=== PATIENT | female | born 1985 | race Caucasian/White ===

== ENCOUNTER 2019-12-17 09:54 | Outpatient (REF) | payer MEDICAID, SELFPAY | END 2019-12-17 09:55 | disposition home or self-care (01) | LOC: HO.LAB 09:54 | PROVIDERS: Visit Provider Internal Medicine | DX: Z20.828 Contact with and (suspected) exposure to other viral communicable diseases (principal) | CPT/HCPCS: C9803; U0003 ==

== ENCOUNTER → 2020-04-18 07:48 | Outpatient (BNVA) | payer MEDICAID, SELFPAY | PROVIDERS: PCP Internal Medicine; Visit Provider Internal Medicine Gastroenterology ==

== ENCOUNTER 2020-04-20 21:11 | Emergency (ER) | payer MEDICAID, SELFPAY ==
--- NOTE | ~2020-04-20 | US_ITS ---
EXAMINATION: US ABDOMEN LIMITED CLINICAL INFORMATION: Right upper quadrant/epigastric pain. COMPARISON: 06/20/2019 TECHNIQUE: Real-time imaging of the right upper quadrant abdominal viscera. FINDINGS: PANCREAS: The visualized proximal portion of the pancreas is unremarkable. The distal portion is obscured secondary to overlying bowel gas. LIVER: The liver is normal in size. The liver contour is normal. Parenchymal echogenicity is mildly increased, suggesting a degree of steatosis. There is a redemonstrated 1.8 cm hyperechoic lesion along the margin of the right hepatic lobe consistent with a hemangioma. There is no intrahepatic biliary duct dilatation seen. GALLBLADDER: Multiple gallstones are visualized. Mild gallbladder wall thickening to 0.4 cm. No pericholecystic fluid is seen. Right upper quadrant tenderness is reported. COMMON BILE DUCT: Normal in caliber measuring 0.2 cm in diameter. RIGHT KIDNEY: No hydronephrosis. No renal calculi or focal parenchymal lesions. The kidney measures 12.1 cm in maximum dimension. FREE FLUID: None. US/US abdomen limited IMPRESSION: 1. Cholelithiasis with mild gallbladder wall thickening, raising concern for mild changes of acute cholecystitis in the proper clinical setting. 2. Redemonstrated hepatic hemangioma.
[2020-04-20 21:13] VITALS: BP 115/67; PULSE 90; RESP 18; TEMP 36.9; O2SAT 100; BMI 30.7
--- NOTE | 2020-04-20 22:35 | ED.GENADULT ---
HPI - General Adult General Chief complaint: General Medical Stated complaint: Abdominal pain Time Seen by Provider: 04/20/20 21:51 Source: patient Mode of arrival: ambulatory History of Present Illness HPI narrative: This is a 35-year-old female with history of IBS, cholelithiasis who presents with worsening, crampy right upper quadrant/epigastric pain that radiates into the right mid back without associated chills but reports subjective fevers yesterday but denies nausea, vomiting, diarrhea, urinary pain/burning/frequency. She states that her last bowel movement was approximately 2-3 days ago. Related Data Previous Rx's Medication Instructions Recorded dicyclomine 10 mg capsule 10 mg PO TID #30 cap 04/07/20 ciprofloxacin HCl [Cipro] 250 mg PO Q12H 3 Days #6 tab 04/21/20 Allergies Allergy/AdvReac Type Severity Reaction Status Date / Time No Known Allergies Allergy Unverified 04/18/20 07:48 Review of Systems Review of Systems: Pertinent positives and negatives as stated in HPI 10 point review systems is otherwise negative. PMFSH Past Medical History Medical History (Updated 04/21/20 @ 01:00 by Amber Lindsay MD) Gallstones Hepatic steatosis IBS (irritable colon syndrome) Family History Family History Paternal Grandfather Diabetes Paternal Grandmother Diabetes Social History Social History Household Members: Spouse and Children Alcohol intake: current Alcohol intake frequency: holidays/special occasions only Alcohol type: beer, wine and hard liquor Smoking Status: Never smoker Advance Directives: No Advance Directives Information Provided: No Current occupational status: employed Current occupation: Office Work Physical Exam Vital Signs: Vital Signs: Last Vital Signs Temp 98.9 F 04/21/20 00:00 Pulse 81 04/21/20 00:00 Resp 18 04/21/20 00:00 BP 107/70 04/21/20 00:00 Pulse Ox 100 04/21/20 00:00 Body Mass Index 30.7 VITAL SIGNS: Reviewed. GENERAL: Well developed, well nourished, in no acute distress. HEAD: Normocephalic/atraumatic, NOSE: Nares patent bilateral OROPHARYNX: no oral lesions noted, posterior pharynx clear NECK: Supple, no adenopathy LUNGS: Normal breath sounds. No adventitious sounds or accessory muscle use. SpO2<100> CARDIOVASCULAR: Regular rate and rhythm without noted murmurs, no JVD or lower extremity edema. ABDOMEN: Soft, tenderness in mid epigastric region without rebound, non-distended with bowel sounds. NEUROLOGIC: Alert and oriented x 4. Course Course Course Narrative: This is a 35-year-old female with history and clinical presentation cholelithiasis, cholecystitis, biliary pancreatitis, constipation, doubt UTI/pyelonephritis/renal colic. Review of all investigations is negative for acute findings other than presence of UTI, COVID positive, and although gallbladder wall is thickened there are is no pericholecystic fluid/leukocytosis/left shift. All results and findings were discussed with patient at bedside. She was discharged in stable condition with antibiotics for her UTI. Medical Decision Making Lab Data Result diagrams: 04/20/20 22:53 04/20/20 22:53 Labs: Lab Results 04/20/20 04/20/20 04/20/20 Range/Units 22:21 22:21 22:53 WBC 7.8 (4.8-10.8) X10*3/uL RBC 4.48 (4.20-5.50) X10*6/uL Hgb 12.5 (12.0-16.0) g/dl Hct 39.7 (37-47) % MCV 88.6 (80-98) fL MCH 27.9 (27.0-33.0) pg MCHC 31.5 (31.0-35.0) g/dl RDW 13.4 (11.0-16.0) % Plt Count 228 (160-400) X10*3/uL MPV 10.3 (9.4-12.3) fL Immature Gran % (Auto) 0.3 (0.0-0.4) % Neut % (Auto) 62.8 (45-73) % Lymph % (Auto) 20.8 (20-40) % [place] % (Auto) 13.5 H (2-11) % Eos % (Auto) 2.2 (0-4) % Baso % (Auto) 0.4 (0-2) % Lymph # (Auto) 1.6 (1.2-4.9) X10*3/uL [place] # (Auto) 1.1 (0.1-1.2) X10*3/uL Eos # (Auto) 0.2 (0.0-0.4) X10*3/uL Baso # (Auto) 0.0 (0.0-0.2) X10*3/uL Abs Immat Gran (auto) 0.02 (0.00-0.03) X10*3/uL Absolute Neuts (auto) 4.9 (2.0-8.3) X10*3/uL Absolute Nucleated RBC 0.000 (0.0-0.012) X10*3/uL Nucleated RBC % (auto) 0.0 (0.0-0.2) /100WBC Sodium (135-145) mmol/L Potassium (3.3-5.1) mmol/L Chloride (96-108) mmol/L Carbon Dioxide (22-29) mmol/L Anion Gap (12-20) BUN (9-16) mg/dL Creatinine (0.5-1.4) mg/dL Estim Creat Clear Calc Estimated GFR Random Glucose (60-115) mg/dL Calcium (8.4-10.2) mg/dL Total Bilirubin (0.0-1.0) mg/dL AST (5-31) U/L ALT (0-31) U/L Alkaline Phosphatase (39-117) U/L Total Protein (6.5-8.0) g/dL Albumin (3.5-5.0) g/dL Lipase (8-78) U/L Urine Color YELLOW Urine Appearance CLEAR Urine pH 7.0 (5.0-8.0) Ur Specific [place] 1.020 (1.005-1.025) Urine Protein NEG (NEG-TRACE) MG/DL Urine Glucose (UA) NEG (NEG) MG/DL Urine Ketones NEG (NEG) MG/DL Urine Blood 1+ H (NEG) Urine Nitrite NEG (NEG) Ur Leukocyte Esterase 1+ H (NEG) Urine RBC 0 (0) /HPF Urine WBC 0-2 (0-4) /HPF Ur Squamous Epith Cells 2+ /LPF Urine Bacteria 1+ /LPF Urine Test NEGATIVE (NEGATIVE) Coronavirus (PCR) (Negative) Influenza Type A (PCR) (Negative) Influenza Type B (PCR) (Negative) RSV RNA Qual (PCR) (Negative) 04/20/20 04/20/20 Range/Units 22:53 22:53 WBC (4.8-10.8) X10*3/uL RBC (4.20-5.50) X10*6/uL Hgb (12.0-16.0) g/dl Hct (37-47) % MCV (80-98) fL MCH (27.0-33.0) pg MCHC (31.0-35.0) g/dl RDW (11.0-16.0) % Plt Count (160-400) X10*3/uL MPV (9.4-12.3) fL Immature Gran % (Auto) (0.0-0.4) % Neut % (Auto) (45-73) % Lymph % (Auto) (20-40) % [place] % (Auto) (2-11) % Eos % (Auto) (0-4) % Baso % (Auto) (0-2) % Lymph # (Auto) (1.2-4.9) X10*3/uL [place] # (Auto) (0.1-1.2) X10*3/uL Eos # (Auto) (0.0-0.4) X10*3/uL Baso # (Auto) (0.0-0.2) X10*3/uL Abs Immat Gran (auto) (0.00-0.03) X10*3/uL Absolute Neuts (auto) (2.0-8.3) X10*3/uL Absolute Nucleated RBC (0.0-0.012) X10*3/uL Nucleated RBC % (auto) (0.0-0.2) /100WBC Sodium 139 (135-145) mmol/L Potassium 4.1 (3.3-5.1) mmol/L Chloride 103 (96-108) mmol/L Carbon Dioxide 28 (22-29) mmol/L Anion Gap 12 (12-20) BUN 11 (9-16) mg/dL Creatinine 0.72 (0.5-1.4) mg/dL Estim Creat Clear Calc 144.5 Estimated GFR > 60 Random Glucose 93 (60-115) mg/dL Calcium 9.3 (8.4-10.2) mg/dL Total Bilirubin 0.5 (0.0-1.0) mg/dL AST 16 (5-31) U/L ALT 20 (0-31) U/L Alkaline Phosphatase 46 (39-117) U/L Total Protein 7.4 (6.5-8.0) g/dL Albumin 4.1 (3.5-5.0) g/dL Lipase 20 (8-78) U/L Urine Color Urine Appearance Urine pH (5.0-8.0) Ur Specific [place] (1.005-1.025) Urine Protein (NEG-TRACE) MG/DL Urine Glucose (UA) (NEG) MG/DL Urine Ketones (NEG) MG/DL Urine Blood (NEG) Urine Nitrite (NEG) Ur Leukocyte Esterase (NEG) Urine RBC (0) /HPF Urine WBC (0-4) /HPF Ur Squamous Epith Cells /LPF Urine Bacteria /LPF Urine Test (NEGATIVE) Coronavirus (PCR) POSITIVE A (Negative) Influenza Type A (PCR) NEGATIVE (Negative) Influenza Type B (PCR) NEGATIVE (Negative) RSV RNA Qual (PCR) NEGATIVE (Negative) Discharge Plan Discharge Clinical Impression: Gallstones, SARS-CoV-2 positive UTI (urinary tract infection) Qualifiers: Urinary tract infection type: site unspecified Hematuria presence: with hematuria Qualified Code(s): N39.0 - Urinary tract infection, site not specified Patient Disposition: Home, Self-Care Instructions: Gallstones (ED), Urinary Tract Infection in Women (ED), COVID-19 (Coronavirus Disease 2019) (ED) Additional Instructions: 1. Utilice Tylenol o ibuprofeno de venta lamin para controlar el dolor buffy se indica en el empaque exterior. 2. Se le suárez diagnosticado COVID-19 positivo hoy, 15 de marzo y debe ponerse en cuarentena de acuerdo con las pautas del estado [facility]. 3. Albino un seguimiento con la cirug?a con respecto a jasmin c?lculos biliares y la cirug?a planificada. 4. Le russo diagnosticado cecilia infecci?n urinaria y le russo enviado antibi?ticos a lares farmacia. No dude en regresar a la tiff de emergencias si experimenta un empeoramiento adalgisa de jasmin s?ntomas. Prescriptions: New ciprofloxacin HCl [Cipro] 250 mg tablet 250 mg PO Q12H 3 Days Qty: 6 RF: 0 No Action dicyclomine 10 mg capsule 10 mg PO TID Qty: 30 RF: 0 Referrals: Lenin Wynn MD [Primary Care Provider] - 2 days (Re-evaluation) Print Language: Uzbek
[2020-04-20 22:49] LABS: Glucose Urine UA NEG (NEG); Leukocyte Esterase Urine 1+ (NEG); Nitrite Urine NEG (NEG); UACC Culture Trigger YES; Urine Blood 1+ (NEG); Urine Ketones NEG (NEG); Urine Protein NEG (NEG-TRACE)
[2020-04-20 22:54] LABS: Appearance Urine CLEAR; Color Urine YELLOW
[2020-04-20 22:55] LABS: UPreg QC Valid YES; Urine Pregnancy NEGATIVE (NEGATIVE)
[2020-04-20 22:57] LABS: Bacteria Urine 1+ /LPF; RBC Urine 0 /HPF (0); Squamous Epithelial Cell Urine 2+ /LPF; WBC Urine 0-2 /HPF (0-4)
[2020-04-20 22:59] LABS: Basophils Percent Auto 0.4 % (0-2); Eosinophils Absolute Auto 0.2 X10*3/uL (0.0-0.4); Eosinophils Percent Auto 2.2 % (0-4); Hematocrit 39.7 % (37-47); Hemoglobin 12.5 g/dl (12.0-16.0); Imm Gran Abs Auto 0.02 X10*3/uL (0.00-0.03); Imm Gran Pct Auto 0.3 % (0.0-0.4); Lymphocytes Absolute Auto 1.6 X10*3/uL (1.2-4.9); Lymphocytes Percent Auto 20.8 % (20-40); MANUAL DIFF FLAG NO; Mean Corpuscular HGB Conc 31.5 g/dl (31.0-35.0); Mean Corpuscular Hemoglobin 27.9 pg (27.0-33.0); Mean Corpuscular Volume 88.6 fL (80-98); Mean Platelet Volume 10.3 fL (9.4-12.3); Monocytes Absolute Auto 1.1 X10*3/uL (0.1-1.2); Monocytes Percent Auto 13.5 % (2-11); Neutrophils Absolute Auto 4.9 X10*3/uL (2.0-8.3); Neutrophils Percent Auto 62.8 % (45-73); Platelet Count 228 X10*3/uL (160-400); Red Blood Count 4.48 X10*6/uL (4.20-5.50); Red Cell Distribution Width 13.4 % (11.0-16.0); White Blood Count 7.8 X10*3/uL (4.8-10.8)
[2020-04-20 23:26] LABS: Alanine Aminotransferase 20 U/L (0-31); Albumin Level 4.1 g/dL (3.5-5.0); Alkaline Phosphatase 46 U/L (39-117); Anion Gap 12 (12-20); Aspartate Amino Transferase 16 U/L (5-31); Bilirubin Total 0.5 mg/dL (0.0-1.0); Blood Urea Nitrogen 11 mg/dL (9-16); Calcium 9.3 mg/dL (8.4-10.2); Carbon Dioxide 28 mmol/L (22-29); Chloride 103 mmol/L (96-108); Creatinine Clr Calc Pharmacy 144.5; Estimated Glomerular Filt Rate > 60; Glucose Random 93 mg/dL (60-115); Lipase 20 U/L (8-78); Potassium 4.1 mmol/L (3.3-5.1); Sodium 139 mmol/L (135-145); Total Protein 7.4 g/dL (6.5-8.0)
[2020-04-20 23:40] LABS: Influenza A PCR NEGATIVE (Negative); Influenza B PCR NEGATIVE (Negative); Resp Syncy Virus RNA Qual PCR NEGATIVE (Negative)
[2020-04-20 23:43] LABS: SARS COV2 PCR INHOUSE POSITIVE (Negative)
[2020-04-21] VITALS: BP 107/70; PULSE 81; RESP 18; TEMP 37.2; O2SAT 100
[2020-04-21] MEDS: levoFLOXacin 250 MG TABLET PO (01:37)
== END 2020-04-21 01:39 | disposition home or self-care (01) ==
PROVIDERS: Emergency Provider Student in an Organized Health Care Education/Training Program; PCP Internal Medicine
DX: U07.1 COVID-19 (principal); K80.80 Other cholelithiasis without obstruction; N39.0 Urinary tract infection, site not specified; R31.9 Hematuria, unspecified; R10.11 Right upper quadrant pain
CPT/HCPCS: 0241U; 36415; 76705; 80053; 81001; 81003; 81025; 83690; 85025; 87086; 99284

== ENCOUNTER 2020-05-05 02:41 | Emergency (ER) | payer MEDICAID, SELFPAY ==
--- NOTE | ~2020-05-05 | US_ITS ---
EXAMINATION: ABDOMINAL ULTRASOUND LIMITED CLINICAL INFORMATION: Right upper quadrant pain. COMPARISON: 04/20/2020. TECHNIQUE: Real-time imaging of the right upper quadrant abdominal viscera. FINDINGS: PANCREAS: The visualized pancreatic head and body are normal in appearance. The remainder of the pancreas is obscured from visualization by the overlying bowel gas. LIVER: The liver is of normal size and echogenicity without intrahepatic biliary ductal dilation. Within the posterior aspect of the right lobe of the liver, there is an approximately 18 x 13 x 15 mm hyperechoic nonshadowing focus. GALLBLADDER: There are multiple calculi within the gallbladder lumen. There is no wall thickening or pericholecystic fluid. COMMON BILE DUCT: Normal in caliber measuring 0.2 cm in diameter. RIGHT KIDNEY: Normal. No hydronephrosis. No renal calculi or focal parenchymal lesions. The kidney measures 11.9 cm in maximum dimension. FREE FLUID: None. US/US abdomen limited IMPRESSION: Cholelithiasis without evidence of cholecystitis. 18 mm echogenic nonshadowing focus within the posterior right lobe of the liver. This is nonspecific, though could correspond to an hemangioma. Consider correlation with abdominal MRI for further tissue characterization.
[2020-05-05 02:42] VITALS: BP 118/71; PULSE 65; RESP 16; TEMP 36.4; O2SAT 99; BMI 31.1
--- NOTE | 2020-05-05 03:24 | ED.ABDPAIN ---
HPI - Abdominal Pain General Chief Complaint: Abdominal Pain Stated Complaint: Abd pain Time Seen by Provider: 05/05/20 03:10 Source: patient Mode of arrival: ambulatory History of Present Illness HPI narrative: This is a patient with known cholelithiasis who presents with acute onset of right upper quadrant discomfort during the night after eating a case ED a for dinner. Patient denies any fevers, chills, nausea, vomiting and originally had surgical consultation scheduled but was then diagnosed with COVID-19 and had to wait. Patient endorses that she has an appointment today with surgical services. Related Data Previous Rx's Medication Instructions Recorded dicyclomine 10 mg capsule 10 mg PO TID #30 cap 04/07/20 ciprofloxacin HCl [Cipro] 250 mg PO Q12H 3 Days #6 tab 04/21/20 Allergies Allergy/AdvReac Type Severity Reaction Status Date / Time No Known Allergies Allergy Unverified 04/18/20 07:48 Review of Systems Review of Systems Pertinent positives and negatives as stated in HPI 10 point review systems is otherwise negative. Physical Exam Vital Signs: Vital Signs: Last Vital Signs Temp 97.6 F 05/05/20 02:42 Pulse 65 05/05/20 02:42 Resp 16 05/05/20 02:42 BP 118/71 05/05/20 02:42 Pulse Ox 99 05/05/20 02:42 Body Mass Index 31.1 VITAL SIGNS: Reviewed. GENERAL: Well developed, well nourished, in no acute distress. HEAD: Normocephalic/atraumatic OROPHARYNX: no oral lesions noted, posterior pharynx clear NECK: Supple, no adenopathy LUNGS: Normal breath sounds. No adventitious sounds or accessory muscle use. SpO2<99> CARDIOVASCULAR: Regular rate and rhythm without noted murmurs ABDOMEN: Obese, Soft, Saucedo's negative, non-distended with bowel sounds. NEUROLOGIC: Alert and oriented x 4. Course Course Course Narrative: This is a 35-year-old female with history and clinical presentation consistent with biliary colic and on review of all investigations there is no evidence of acute infection. Patient does have good follow-up today and will be discharged in stable condition after receiving combination analgesics instructions to avoid fat containing meals until evaluated by surgery. MDM - Abdominal Pain Lab Data Result diagrams: 05/05/20 04:26 05/05/20 04:26 Labs: Lab Results 05/05/20 05/05/20 05/05/20 Range/Units 03:55 03:55 04:26 WBC 8.6 (4.8-10.8) X10*3/uL RBC 4.15 L (4.20-5.50) X10*6/uL Hgb 11.7 L (12.0-16.0) g/dl Hct 36.5 L (37-47) % MCV 88.0 (80-98) fL MCH 28.2 (27.0-33.0) pg MCHC 32.1 (31.0-35.0) g/dl RDW 13.2 (11.0-16.0) % Plt Count 253 (160-400) X10*3/uL MPV 9.7 (9.4-12.3) fL Immature Gran % (Auto) 0.2 (0.0-0.4) % Neut % (Auto) 56.1 (45-73) % Lymph % (Auto) 33.4 (20-40) % [place] % (Auto) 7.5 (2-11) % Eos % (Auto) 2.2 (0-4) % Baso % (Auto) 0.6 (0-2) % Lymph # (Auto) 2.9 (1.2-4.9) X10*3/uL [place] # (Auto) 0.7 (0.1-1.2) X10*3/uL Eos # (Auto) 0.2 (0.0-0.4) X10*3/uL Baso # (Auto) 0.1 (0.0-0.2) X10*3/uL Abs Immat Gran (auto) 0.02 (0.00-0.03) X10*3/uL Absolute Neuts (auto) 4.8 (2.0-8.3) X10*3/uL Absolute Nucleated RBC 0.000 (0.0-0.012) X10*3/uL Nucleated RBC % (auto) 0.0 (0.0-0.2) /100WBC Sodium (135-145) mmol/L Potassium (3.3-5.1) mmol/L Chloride (96-108) mmol/L Carbon Dioxide (22-29) mmol/L Anion Gap (12-20) BUN (9-16) mg/dL Creatinine (0.5-1.4) mg/dL Estim Creat Clear Calc Estimated GFR Random Glucose (60-115) mg/dL Calcium (8.4-10.2) mg/dL Total Bilirubin (0.0-1.0) mg/dL AST (5-31) U/L ALT (0-31) U/L Alkaline Phosphatase (39-117) U/L Total Protein (6.5-8.0) g/dL Albumin (3.5-5.0) g/dL Lipase (8-78) U/L Urine Color YELLOW Urine Appearance CLEAR Urine pH 6.5 (5.0-8.0) Ur Specific [place] 1.025 (1.005-1.025) Urine Protein NEG (NEG-TRACE) MG/DL Urine Glucose (UA) NEG (NEG) MG/DL Urine Ketones NEG (NEG) MG/DL Urine Blood TRACE (NEG) Urine Nitrite NEG (NEG) Ur Leukocyte Esterase NEG (NEG) Urine RBC 5-9 H (0) /HPF Urine WBC 0-2 (0-4) /HPF Ur Squamous Epith Cells 2+ /LPF Urine Bacteria TRACE /LPF Urine Mucus 3+ /LPF Urine Test NEGATIVE (NEGATIVE) 05/05/20 Range/Units 04:26 WBC (4.8-10.8) X10*3/uL RBC (4.20-5.50) X10*6/uL Hgb (12.0-16.0) g/dl Hct (37-47) % MCV (80-98) fL MCH (27.0-33.0) pg MCHC (31.0-35.0) g/dl RDW (11.0-16.0) % Plt Count (160-400) X10*3/uL MPV (9.4-12.3) fL Immature Gran % (Auto) (0.0-0.4) % Neut % (Auto) (45-73) % Lymph % (Auto) (20-40) % [place] % (Auto) (2-11) % Eos % (Auto) (0-4) % Baso % (Auto) (0-2) % Lymph # (Auto) (1.2-4.9) X10*3/uL [place] # (Auto) (0.1-1.2) X10*3/uL Eos # (Auto) (0.0-0.4) X10*3/uL Baso # (Auto) (0.0-0.2) X10*3/uL Abs Immat Gran (auto) (0.00-0.03) X10*3/uL Absolute Neuts (auto) (2.0-8.3) X10*3/uL Absolute Nucleated RBC (0.0-0.012) X10*3/uL Nucleated RBC % (auto) (0.0-0.2) /100WBC Sodium 139 (135-145) mmol/L Potassium 4.0 (3.3-5.1) mmol/L Chloride 106 (96-108) mmol/L Carbon Dioxide 24 (22-29) mmol/L Anion Gap 13 (12-20) BUN 20 H D (9-16) mg/dL Creatinine 0.71 (0.5-1.4) mg/dL Estim Creat Clear Calc 147.6 Estimated GFR > 60 Random Glucose 90 (60-115) mg/dL Calcium 8.6 D (8.4-10.2) mg/dL Total Bilirubin 0.6 (0.0-1.0) mg/dL AST 14 (5-31) U/L ALT 17 (0-31) U/L Alkaline Phosphatase 41 (39-117) U/L Total Protein 6.6 (6.5-8.0) g/dL Albumin 3.7 (3.5-5.0) g/dL Lipase 15 (8-78) U/L Urine Color Urine Appearance Urine pH (5.0-8.0) Ur Specific [place] (1.005-1.025) Urine Protein (NEG-TRACE) MG/DL Urine Glucose (UA) (NEG) MG/DL Urine Ketones (NEG) MG/DL Urine Blood (NEG) Urine Nitrite (NEG) Ur Leukocyte Esterase (NEG) Urine RBC (0) /HPF Urine WBC (0-4) /HPF Ur Squamous Epith Cells /LPF Urine Bacteria /LPF Urine Mucus /LPF Urine Test (NEGATIVE) Discharge Plan Discharge Clinical Impression: Gallstones Patient Disposition: Home, Self-Care Instructions: Biliary Colic (ED), Gallstones (ED) Additional Instructions: 1. Tylenol 1000 mg, orally, every 6 hours as needed for pain control. Do not exceed 4000 mg within 24 hours. 2. Ibuprofen 400 mg, orally with milk or food, every 6 hours as needed for pain control. 3. Please follow-up with Surgical Services as planned today and avoid consuming any fatty meals as this will cause increased discomfort. Do not hesitate to return to the emergency department if you began developing fevers, chills, nausea, or vomiting. Prescriptions: No Action dicyclomine 10 mg capsule 10 mg PO TID Qty: 30 RF: 0 ciprofloxacin HCl [Cipro] 250 mg tablet 250 mg PO Q12H 3 Days Qty: 6 RF: 0 Referrals: [facility] [Primary Care Provider] - 2 days You Maya MD [Physician] - 2 days (Patient presented to the ED with biliary colic after fatty meal.) Interventions: ED Discharge Assessment Last Done: 05/05/20 05:12 [facility] Past Medical History Source: nursing notes reviewed Medical History Gallstones Hepatic steatosis IBS (irritable colon syndrome) Family History Family History Paternal Grandfather Diabetes Paternal Grandmother Diabetes Social History Social History Household Members: Spouse and Children Alcohol intake: current Alcohol intake frequency: a few times a week Alcohol type: beer, wine and hard liquor Smoking Status: Never smoker Use of substances other than those prescribed or required for medical reasons: No Advance Directives: No Advance Directives Information Provided: No Current occupational status: employed Current occupation: Office Work
[2020-05-05 04:04] LABS: Appearance Urine CLEAR; Color Urine YELLOW; Glucose Urine UA NEG (NEG); Leukocyte Esterase Urine NEG (NEG); Nitrite Urine NEG (NEG); PH 6.5 (5.0-8.0); Specific Gravity - Urine 1.025 (1.005-1.025); Urine Blood TRACE (NEG); Urine Ketones NEG (NEG); Urine Protein NEG (NEG-TRACE)
[2020-05-05 04:06] LABS: UPreg QC Valid YES; Urine Pregnancy NEGATIVE (NEGATIVE)
[2020-05-05 04:25] LABS: WBC Urine 0-2 /HPF (0-4)
[2020-05-05 04:26] LABS: Bacteria Urine TRACE /LPF; Mucus Urine 3+ /LPF; Squamous Epithelial Cell Urine 2+ /LPF
[2020-05-05 04:30] LABS: Basophils Absolute Auto 0.1 X10*3/uL (0.0-0.2); Basophils Percent Auto 0.6 % (0-2); Eosinophils Absolute Auto 0.2 X10*3/uL (0.0-0.4); Eosinophils Percent Auto 2.2 % (0-4); Hematocrit 36.5 % (37-47); Hemoglobin 11.7 g/dl (12.0-16.0); Imm Gran Abs Auto 0.02 X10*3/uL (0.00-0.03); Imm Gran Pct Auto 0.2 % (0.0-0.4); Lymphocytes Absolute Auto 2.9 X10*3/uL (1.2-4.9); Lymphocytes Percent Auto 33.4 % (20-40); MANUAL DIFF FLAG NO; Mean Corpuscular HGB Conc 32.1 g/dl (31.0-35.0); Mean Corpuscular Hemoglobin 28.2 pg (27.0-33.0); Mean Platelet Volume 9.7 fL (9.4-12.3); Monocytes Absolute Auto 0.7 X10*3/uL (0.1-1.2); Monocytes Percent Auto 7.5 % (2-11); Neutrophils Absolute Auto 4.8 X10*3/uL (2.0-8.3); Neutrophils Percent Auto 56.1 % (45-73); Platelet Count 253 X10*3/uL (160-400); Red Blood Count 4.15 X10*6/uL (4.20-5.50); Red Cell Distribution Width 13.2 % (11.0-16.0); White Blood Count 8.6 X10*3/uL (4.8-10.8)
[2020-05-05] MEDS: Acetaminophen 325 MG TABLET 975 MG PO (04:51)
[2020-05-05] MEDS: Ketorolac Tromethamine 15 MG/ML VIAL IM (04:52)
[2020-05-05 04:55] LABS: Alanine Aminotransferase 17 U/L (0-31); Albumin Level 3.7 g/dL (3.5-5.0); Alkaline Phosphatase 41 U/L (39-117); Anion Gap 13 (12-20); Aspartate Amino Transferase 14 U/L (5-31); Bilirubin Total 0.6 mg/dL (0.0-1.0); Blood Urea Nitrogen 20 mg/dL (9-16); Calcium 8.6 mg/dL (8.4-10.2); Carbon Dioxide 24 mmol/L (22-29); Chloride 106 mmol/L (96-108); Creatinine Clr Calc Pharmacy 147.6; Estimated Glomerular Filt Rate > 60; Glucose Random 90 mg/dL (60-115); Lipase 15 U/L (8-78); Sodium 139 mmol/L (135-145); Total Protein 6.6 g/dL (6.5-8.0)
== END 2020-05-05 05:53 | disposition home or self-care (01) ==
PROVIDERS: Emergency Provider Student in an Organized Health Care Education/Training Program
DX: K80.20 Calculus of gallbladder without cholecystitis without obstruction (principal); R10.11 Right upper quadrant pain; Z86.16 Personal history of COVID-19; K76.0 Fatty (change of) liver, not elsewhere classified; K58.9 Irritable bowel syndrome, unspecified
CPT/HCPCS: 36415; 76705; 80053; 81001; 81003; 81025; 83690; 85025; 96372; 99212; 99284; J1885

== ENCOUNTER 2020-05-08 13:55 | Outpatient (REF) | payer MEDICAID, SELFPAY ==
[2020-05-08 14:49] LABS: FIT Int Ctl YES; FIT1 NEGATIVE (NEGATIVE); FIT2 NEGATIVE (NEGATIVE)
== END 2020-05-08 13:56 | disposition home or self-care (01) ==
LOC: HO.LNP 13:55
PROVIDERS: Visit Provider Internal Medicine Gastroenterology
DX: K58.9 Irritable bowel syndrome, unspecified (principal)
CPT/HCPCS: 82274

== ENCOUNTER 2020-05-13 08:53 | Day surgery (SDC) | payer MEDICAID, SELFPAY ==
[2020-05-12 08:46] VITALS: BMI 31.0
--- NOTE | 2020-05-12 10:17 | HO.ANESPROP2 ---
Documented by User: Rebecca Wood 05/12/20 10:21 HPI - Anesthesia Eval Consult details Narrative: 35yo F for Cholecystectomy Laparoscopic PMFSH Active Problems Active Problems: All Active Problems (Updated 05/05/20 @ 05:23 by Amber Lindsay MD) Gallstones (Acute) Hepatic steatosis (Acute) IBS (irritable colon syndrome) (Acute) Past Medical History Medical History Gallstones Hepatic steatosis IBS (irritable colon syndrome) Family History Family History Paternal Grandfather Diabetes Paternal Grandmother Diabetes Social History Social History Household Members: Spouse and Children Alcohol intake: current Alcohol intake frequency: a few times a week Alcohol type: beer, wine and hard liquor Smoking Status: Never smoker Use of substances other than those prescribed or required for medical reasons: No Have you been hit, kicked, punched, or otherwise hurt by someone within the past year? If so, by whom?: No Advance Directives: No Advance Directives Information Provided: Yes Current occupational status: employed Current occupation: Office Work Meds Allergies Allergy/AdvReac Type Severity Reaction Status Date / Time No Known Allergies Allergy Verified 05/05/20 13:50 Home Medications Medication Instructions Recorded Confirmed Last Taken Type acetaminophen 500 mg tablet 500 mg PO Q6H PRN 05/05/20 05/05/20 Unknown History ibuprofen 200 mg tablet 200 mg PO Q6H PRN 05/05/20 05/05/20 Unknown History Exam Exam Date and Time: May 12, 2020 1017 Height,Weight and Vital Signs: Height 5 ft 11 in Weight 101 kg Pertinent Lab Results Pertinent Lab Results: Laboratory Tests 05/05/20 05/05/20 04:26 04:26 WBC 8.6 Hgb 11.7 L Hct 36.5 L Plt Count 253 Sodium 139 Potassium 4.0 Chloride 106 Carbon Dioxide 24 BUN 20 H D Creatinine 0.71 Assessment and Plan Assessment Anesthesia Assessment: Chart Reviewed Documented by User: Rigoberto Lawton MD 05/13/20 11:53 PMFSH Past Medical History Medical History Gallstones Hepatic steatosis IBS (irritable colon syndrome) Family History Family History Paternal Grandfather Diabetes Paternal Grandmother Diabetes Social History Social History Household Members: Spouse and Children Alcohol intake: current Alcohol intake frequency: a few times a week Alcohol type: beer, wine and hard liquor Smoking Status: Never smoker Use of substances other than those prescribed or required for medical reasons: No Have you been hit, kicked, punched, or otherwise hurt by someone within the past year? If so, by whom?: No Advance Directives: No Advance Directives Information Provided: Yes Current occupational status: employed Current occupation: Office Work Meds Allergies Allergy/AdvReac Type Severity Reaction Status Date / Time No Known Allergies Allergy Verified 05/05/20 13:50 Home Medications Medication Instructions Recorded Confirmed Last Taken Type acetaminophen 500 mg tablet 500 mg PO Q6H PRN 05/05/20 05/05/20 Unknown History ibuprofen 200 mg tablet 200 mg PO Q6H PRN 05/05/20 05/05/20 Unknown History Exam Airway Mallampati Class: II TM Dist: >3cm Neck ROM: Full Loose/Missing/Broken Teeth: No Heart: RRR Lungs: NL Assessment and Plan Assessment Anesthesia Assessment: Anesthesia Plan Discussed and Chart Reviewed Final Anesthetic Review NPO: Yes ASA Class: II Final Preanesthetic Review: No Changes in Pt Med Stat, Meds/Allgs Chart Reviewed, Consent Obtained/Reviewed and Anes Risks/Benef Reviewed Patient Risk: Low Procedure Risk: Low Anesthetic Plan Anesthetic Plan: GA Disposition: Standard PACU
[2020-05-13] VITALS (15 sets, daily range): BP systolic 108–127; BP diastolic 63–72; PULSE 70–100; RESP 16–20; TEMP 36.3–37.1; O2SAT 95–100
[2020-05-13 09:40] LABS: UPreg QC Valid YES; Urine Pregnancy NEGATIVE (NEGATIVE)
[2020-05-13] MEDS: Lactated Ringers 1,000 ML 100 ML IVCONT (10:04)
[2020-05-13] MEDS: Acetaminophen 325 MG TABLET 650 MG PO (10:16)
--- NOTE | 2020-05-13 11:00 | MHC.SHP ---
Pre-Procedural Eval Section B Chief Complaint: Gallstones Allergies: Allergies Allergy/AdvReac Type Severity Reaction Status Date / Time No Known Allergies Allergy Verified 05/05/20 13:50 Plan I have reviewed the history and physical and performed a pertinent physical examination on my patient. No changes have occurred unless specified.
--- NOTE | 2020-05-13 12:56 | PM.OP ---
Brief Operative Note Date of Service: 05/13/20 Pre-op diagnosis: Gallstones Post-op diagnosis: other (Gallstones with chronic cholecystitis) Procedure: Laparoscopic cholecystectomy Surgeon: You Maya MD Anesthesia: GETA Estimated blood loss (mL): 30 Pathology: other (Gallbladder) Condition: stable Disposition: PACU
--- NOTE | 2020-05-13 12:57 | P.OP_ITS ---
Operative Note Operative Note Date of Service: 05/13/20 Narrative: Preop diagnosis: Gallstones Postop diagnosis: Gallstones with chronic cholecystitis Procedure: Laparoscopic cholecystectomy Surgeon: You Maya MD under water assistant: None The patient is 35 year female with chronic right upper quadrant pain and tenderness with known gallstones. In view of her symptoms, explained to her the option of proceeding with laparoscopic cholecystectomy and possible open cholecystectomy. I explained the risks including but not limited to bleeding, infections, bile leak, as well as the benefits and alternatives. She wanted to proceed. She was brought the operating room and placed supine on the table under general anesthesia via endotracheal tube. The abdomen was prepped and draped in usual sterile fashion. A surgical time-out was done. The patient received Cefotan 2 g IV preoperatively. I made a short incision on the skin on the supraumbilical margin using blade 15 . This was carried down through the full-thickness of the skin and subcutaneous fat down to the fascia. The fascia was incised. The peritoneum was entered. Through this incision a Margi port was introduced. Pneumoperitoneum was introduced to a pressure of 15 mm hg. From here on the rest of procedure was done under vision with the laparoscope. Under laparoscopic visualization, I inserted a 5/12 new port in the epigastric area below the subcostal margin through a small incision. I placed 5 mm ports through small incisions below the subcostal margin along the anterior axillary line and the midclavicular line. Graspers were placed through these working ports. The patient was placed in head-up and [id number] position. The gallbladder was seen to be this supple and was not inflamed although distended. I was able to therefore apply a grasper at the fundus and this was used to retra ct the gallbladder cephalad. Another grasper was applied towards the pouch of the gallbladder and this used to retract the gallbladder laterally. We therefore proceeded to gently put the area of the cyst duct on stretch. We stripped off fibrous and areolar tissue surrounding this neck of the gallbladder using the [place] dissector. By doing so we were able to clearly visualize the cystic duct as well as the cystic artery. We were able to achieve a critical view of the hepatocystic triangle. There were no other tubular structures within this area. We had to do a lot of the gentle dissection of the rest of the neck of the gallbladder using the [place] dissector in view of signs of chronic cholecystitis with thick fibrous tissue to be able achieve a critical view. However were able to eventually confirm the confluence of the cystic duct with the neck of the gallbladder. I therefore applied clips on cystic with 2 clips applied distally. The cystic duct was transected between clips using Endo scissors I then applied clips on the cystic artery as well and this was transected between clips using Endo scissors With traction the gallbladder away from the liver bed, I proceeded to then gently dissect across the hilum with combination of blunt dissection with the [place] dissector as well as electrocautery. We proceeded to then incise the peritoneum of the gallbladder wall using the electrocautery spatula. We proceeded to define a plane dissection between the gallbladder wall and the liver bed along this incision. We dissected the gallbladder off of the liver bed along this well-defined plane of dissection using I combination of sharp dissection with the electrocautery as well as blunt dissection with the tip of the spatula. We continued to dissect along this plane towards the fundus. Because of evidence of chronic cholecystitis, the planes were actually difficult as we advanced along the gallbladder towards the fundus. We therefore had to proceed slowly . I continued with this manner of dissection all the to fundus until the entire gallbladder was completely from the liver bed We retrieved the gallbladder through an endobag through the umbilical incision. We then reinserted all ports and re-insufflated I examined the subhepatic space. There was no signs of any bleeding or any active bile leak. There was some bile spillage earlier from a tear in the gallbladder wall so had to irrigate cpiously and suction the irrigant fluid. We observed and there was no evidence of any bile leak. I examined all 4 quadrants there was no other pathology or nor evidence of any bowel injury seen. I re-examined the subhepatic space. This remained hemostatic. I then proceeded to desufflate through the port sites. I removed all ports under vision with the laparoscope these all appeared hemostatic as well. I removed the Margi port last. I closed the fascia of the umbilical incision with the [id number] Dexon 0 stitch. Skin closure was achieved on all incisions using Dexon 4-0 subcuticular running sutures. Steri-Strips and dressings were applied. All incisions were infiltrated with Marcaine 0.5% for postop analgesia. The pro cedure was then completed. The patient tolerated the procedure well. No immediate complications were noted. Initial and final counts of sponges and instruments were correct. Estimated blood loss was about 30 cc. The patient was extubated without difficulty and transferred to the recovery room with stable vital signs.
[2020-05-13] MEDS: oxyCODONE HCl Immed Release 5 MG TABLET PO (13:25)
[2020-05-13] MEDS: HYDROmorphone HCl 0.5 MG/0.5 ML SYRINGE 0.25 MG IVPUSH ×4 (13:25→13:50)
== END 2020-05-13 15:00 | disposition home or self-care (01) ==
PROVIDERS: Nurse Practitioner; Visit Provider Surgery
PROC: 0FT44ZZ Resection of Gallbladder, Percutaneous Endoscopic Approach (ICD-10-PCS; CPT 47562; principal; 2020-05-13 10:50)
DX: K80.10 Calculus of gallbladder with chronic cholecystitis without obstruction (principal); K76.0 Fatty (change of) liver, not elsewhere classified; K58.9 Irritable bowel syndrome, unspecified; Z79.899 Other long term (current) drug therapy
CPT/HCPCS: 47562; 81025; 88304; J1100; J1170; J2250; J2370; J2405; J3010

== ENCOUNTER → 2020-06-02 14:56 | Outpatient (BNVA) | payer MEDICAID, SELFPAY | PROVIDERS: PCP Nurse Practitioner Primary Care; Visit Provider Surgery | DX: Z87.19 Personal history of other diseases of the digestive system (principal); Z90.49 Acquired absence of other specified parts of digestive tract | CPT/HCPCS: 99212 ==

== ENCOUNTER 2020-09-20 20:14 | Emergency (ER) | payer MEDICAID, SELFPAY ==
[2020-09-20 20:59] VITALS: BP 131/78; PULSE 85; RESP 16; TEMP 36.9; O2SAT 100; BMI 31.9
[2020-09-20 21:21] LABS: IDNOW Serial# 9DD0AD1C; Strep A Nucleic Acid Negative (Negative)
[2020-09-20 21:25] LABS: COVID-19 Test Negative (Negative)
--- NOTE | 2020-09-20 22:01 | ED.GENADULT ---
HPI - General Adult General Chief complaint: General Medical Stated complaint: Sore throat/Congestion Time Seen by Provider: 09/20/20 21:13 Source: patient Mode of arrival: ambulatory Limitations: no limitations History of Present Illness HPI narrative: Sore throat, congestion and sneezing for past 2 days. Received multiple COVID-19 vaccination Has not had any recent travel Not had any sick contact Does not currently work Onset (ago): day(s) Location: face Radiation: non-radiation Severity: mild Relieving factors: none Exacerbating factors: none Treatments prior to arrival: none Related Data Home Medications Medication Instructions Recorded Confirmed acetaminophen 500 mg tablet 500 mg PO Q6H PRN 05/05/20 06/02/20 ibuprofen 200 mg tablet 200 mg PO Q6H PRN 05/05/20 06/02/20 Previous Rx's Medication Instructions Recorded dicyclomine 10 mg capsule 10 mg PO TID #30 cap 04/07/20 ciprofloxacin HCl 250 mg tablet 250 mg PO Q12H 3 Days #6 tab 04/21/20 (Cipro) oxycodone-acetaminophen 5 mg-325 1 - 2 tab PO Q4-6H PRN #30 tab 05/13/20 mg tablet (Percocet) Allergies Allergy/AdvReac Type Severity Reaction Status Date / Time No Known Allergies Allergy Verified 06/02/20 15:03 Review of Systems Review of Systems: Yes all other systems are reviewed and are negative [facility] Past Medical History Source: unable to obtain Medical History (Updated 09/21/20 @ 00:02 by Tiago Kilpatrick) Gallstones Hepatic steatosis IBS (irritable colon syndrome) Surgical History History of laparoscopic cholecystectomy Family History Family History Paternal Grandfather Diabetes Paternal Grandmother Diabetes Social History Social History Household Members: Spouse and Children Household Members Other:: ages of kids 3 from husbands prev. m.--17,16,12; 2 smaller: 3 and 4 yr old Alcohol intake: current Alcohol intake frequency: a few times a week Alcohol type: beer, wine and hard liquor Advance Directives: No Advance Directives Information Provided: No Patient : No Current occupational status: employed Current occupation: Office Work Physical Exam Vital Signs: Vital Signs: Last Vital Signs Temp 98.4 F 09/20/20 20:59 Pulse 85 09/20/20 20:59 Resp 16 09/20/20 20:59 BP 131/78 09/20/20 20:59 Pulse Ox 100 09/20/20 20:59 Body Mass Index 31.9 Const: General: cooperative and healthy appearing; No acute distress or intoxicated appearing Nutritional Appearance: average body habitus Orientation/consciousness: patient oriented x3 HENMT: Head: Yes normal to inspection Ears: hearing grossly normal bilaterally Eyes: General: appearance normal, both eyes and all related structures Visual Riojas: normal visual riojas by confrontation Neck: Neck: Yes normal visual inspection, No positive Brudzinski's sign, No positive Kernig's sign and No tender Thyroid: Thyroid normal Chest: Chest palpation & inspection: normal inspection of the chest Resp: Effort & Inspection: normal respiratory effort Cardio: Jugular venous distension: no JVD GI: Inspection: Yes normal to inspection Percussion: Yes normal to percussion Auscultation: normal bowel sounds : General: Yes no CVA tenderness Back/Spine/Pelvis: Back: no CVA tenderness Skin: General skin exam: no rashes or lesions noted Neuro: General: patient oriented x3 Extrem: General: Yes normal to inspection Course Reevaluation(s) Reevaluation #1: Has had COVID and April does not feel like that, symptoms are relatively mild compared to then. Overall well nontoxic appearing. Vitals stable. Afebrile. Pulse ox 100% on room air. A/P consistent with acute viral symptoms will discharge home with supportive care, return, follow-up instructions. Stable for discharge. Medical Decision Making Lab Data Labs: Lab Results 09/20/20 09/20/20 Range/Units 21:04 21:04 COVID-19 (ANURADHA) Negative (Negative) COVID-19 Clin Com See Note S. pyogenes GrpA RAMONE Negative (Negative) Discharge Plan Discharge Clinical Impression: Acute nasopharyngitis Patient Disposition: Home, Self-Care Instructions: Upper Respiratory Infection (ED) Additional Instructions: Your COVID test was negative Strep test was negative Social distancing, self-isolation Drink plenty fluids Supportive care Return if any concerns or other symptoms Otherwise follow-up as planned Thank you Prescriptions: No Action dicyclomine 10 mg capsule 10 mg PO TID Qty: 30 RF: 0 ciprofloxacin HCl [Cipro] 250 mg tablet 250 mg PO Q12H 3 Days Qty: 6 RF: 0 oxycodone-acetaminophen [Percocet] 5-325 mg tablet 1 - 2 tab PO Q4-6H PRN (Reason: pain) Qty: 30 RF: 0 acetaminophen 500 mg tablet 500 mg PO Q6H PRNRF: 0 ibuprofen 200 mg tablet 200 mg PO Q6H PRNRF: 0 Referrals: Physician,Unknown [Primary Care Provider] - 1 week Interventions: ED Discharge Assessment Last Done: 09/20/20 22:16 Discharge Date/Time: 09/20/20 22:18
== END 2020-09-20 22:18 | disposition home or self-care (01) ==
PROVIDERS: Emergency Provider Emergency Medicine
DX: J00 Acute nasopharyngitis [common cold] (principal); Z20.822 Contact with and (suspected) exposure to COVID-19
CPT/HCPCS: 36415; 87635; 87651; 99283

== ENCOUNTER 2020-10-28 10:51 | Outpatient (REF) | payer MEDICAID, SELFPAY | END 2020-10-28 10:52 | disposition home or self-care (01) | LOC: HO.LAB 10:51 | PROVIDERS: Visit Provider Internal Medicine | DX: Z20.822 Contact with and (suspected) exposure to COVID-19 (principal) | CPT/HCPCS: C9803; U0003; U0005 ==

== ENCOUNTER 2021-06-18 12:41 | Emergency (ER) | payer MEDICAID, SELFPAY ==
--- NOTE | ~2021-06-18 | XR_ITS ---
EXAMINATION: XR HAND, LEFT CLINICAL INFORMATION: Crush injury COMPARISON: None TECHNIQUE: PA, lateral, and oblique views of the left hand. FINDINGS: A subtle lucency along the ulnar margin of the fourth distal phalanx at its proximal lucency extending into the metadiaphysis possibly representing a nondisplaced fracture versus a vascular channel versus summation artifact. Correlation with point tenderness. Negative ulnar variance. Joint spaces and alignment are otherwise maintained. Soft tissues are unremarkable. XR/XR hand LT min 3V IMPRESSION: A subtle lucency along the ulnar margin of the fourth distal phalanx at its proximal lucency extending into the metadiaphysis possibly representing a nondisplaced fracture versus a vascular channel versus summation artifact. Correlation with point tenderness.
[2021-06-18 14:09] VITALS: BP 119/74; PULSE 81; RESP 16; TEMP 36.3; O2SAT 98; BMI 32.8
--- NOTE | 2021-06-18 16:12 | ED_ITS ---
HPI - Extremity Problem General Chief complaint: Extremity Injury, Upper Stated complaint: fingers shut in car door Time Seen by Provider: 06/18/21 15:36 Source: patient Mode of arrival: ambulatory Limitations: no limitations History of Present Illness HPI Narrative: 36-year-old female presents to the ED for 3rd and 4th finger pain after slamming door on hand by accident. Patient denies any other trauma. Related Data Home Medications Medication Instructions Recorded Confirmed acetaminophen 500 mg tablet 500 mg PO Q6H PRN 05/05/20 06/02/20 ibuprofen 200 mg tablet 200 mg PO Q6H PRN 05/05/20 06/02/20 Previous Rx's Medication Instructions Recorded dicyclomine 10 mg capsule 10 mg PO TID #30 cap 04/07/20 ciprofloxacin HCl 250 mg tablet 250 mg PO Q12H 3 Days #6 tab 04/21/20 (Cipro) oxycodone-acetaminophen 5 mg-325 1 - 2 tab PO Q4-6H PRN #30 tab 05/13/20 mg tablet (Percocet) amoxicillin 875 mg-potassium 1 tab PO Q12H 10 Days #20 tab 06/18/21 clavulanate 125 mg tablet naproxen 500 mg tablet 500 mg PO BID PRN 10 Days #20 tab 06/18/21 Allergies Allergy/AdvReac Type Severity Reaction Status Date / Time No Known Allergies Allergy Verified 06/02/20 15:03 Review of Systems Review of Systems: Left hand fingers pain Yes all other systems are reviewed and are negative PMFSH Past Medical History Medical History (Updated 06/18/21 @ 16:58 by HERLINDA Jeter) Gallstones Hepatic steatosis IBS (irritable colon syndrome) Surgical History History of laparoscopic cholecystectomy Family History Family History Paternal Grandfather Diabetes Paternal Grandmother Diabetes Social History Social History Household Members: Spouse and Children Household Members Other:: ages of kids 3 from husbands prev. m.--17,16,12; 2 smaller: 3 and 4 yr old Alcohol intake: current Alcohol intake frequency: a few times a week Alcohol type: beer, wine and hard liquor Advance Directives: No Advance Directives Information Provided: No Current occupational status: employed Current occupation: Office Work Physical Exam Vital Signs: Vital Signs: Last Vital Signs Temp 97.3 F 06/18/21 14:09 Pulse 81 06/18/21 14:09 Resp 16 06/18/21 14:09 BP 119/74 06/18/21 14:09 Pulse Ox 98 06/18/21 14:09 BMI result Body Mass Index 32.8 Const: General: cooperative, healthy appearing, comfortable, no acute distress, well developed, alert, awake and Physically active Orientation/consciousness: oriented to time and patient oriented x3 HEENT: Head: Yes normal to inspection, Yes No palpable skull fracture present, Yes normocephalic, Yes atraumatic and No abrasion Eyes: General: appearance normal, both eyes and all related structures Neck: Neck: Yes normal visual inspection, Yes full ROM, Yes no lymphadenopathy, Yes no meningeal signs, Yes trachea midline, Yes supple, No anterior neck swelling and No tender Chest: Chest palpation & inspection: normal inspection of the chest and normal palpation of entire chest wall Resp: Effort & Inspection: normal respiratory effort and able to speak in complete sentences Auscultation: clear to auscultation bilaterally Cardio: Jugular venous distension: no JVD Heart sounds: S1 normal heart sound present and S2 normal heart sound present GI: Inspection: Yes normal to inspection and No abdominal wall ecchymosis Palpation (GI): Soft to palpation, not firm, nontender, no guarding and not rigid : General: No CVA tenderness and Yes no CVA tenderness Back/Spine/Pelvis: Back: no CVA tenderness, No CVA tenderness and No back tenderness Skin: General skin exam: no rashes or lesions noted and elasticity normal Neuro: General: oriented to time, patient oriented x3, gait normal and no meningeal signs Cranial nerves: Yes CN's II-XII intact bilaterally Extrem: General: Yes normal to inspection and Yes full ROM Hand/finger images: 1. Tenderness on palpation. Negative ecchymosis or deformity. Negative for signs of nerve/tendon injury. Capillary refills intact. Rest of extremity normal. Motor/neuro/vascular exam intact 2. Tenderness on palpation. Negative ecchymosis or deformity. Negative for s igns of nerve/tendon injury. Capillary refills intact. Rest of extremity normal. Motor/neuro/vascular exam intact 3. Abrasion. Negative for tenderness. Negative for any deformity or ecchymosis. Motor/neuro/vascular exam intact. Psych: Appearance: grossly normal, well kempt and not disheveled Course Course Course Narrative: Hand x-ray ordered. Reevaluation(s) Reevaluation #1: An x-ray shows 4th distal phalanx fracture. Patient placed in finger splint will be discharged with antibiotics. Patient from the fall orthopedic. Patient states uptodate with tetanus Time: 16:56 MDM - Extremity (Nontraumatic) MDM Narrative Medical decision making narrative: Finger fracture Discharge Plan Discharge Clinical Impression: Finger fracture, left Patient Disposition: Home, Self-Care Instructions: Finger Fracture (ED) Additional Instructions: You have a finger fracture. You need to follow orthopedic surgery.. You will be discharged with antibiotics. Return to the ED immediately for any swelling, redness, pus discharge, foul odor, bluish black discoloration, or any other concerning symptoms. Prescriptions: New amoxicillin-pot clavulanate 875-125 mg tablet 1 tab PO Q12H 10 Days Qty: 20 0RF naproxen 500 mg tablet 500 mg PO BID PRN (Reason: pain) 10 Days Qty: 20 0RF No Action dicyclomine 10 mg capsule 10 mg PO TID Qty: 30 0RF ciprofloxacin HCl [Cipro] 250 mg tablet 250 mg PO Q12H 3 Days Qty: 6 0RF oxycodone-acetaminophen [Percocet] 5-325 mg tablet 1 - 2 tab PO Q4-6H PRN (Reason: pain) Qty: 30 0RF acetaminophen 500 mg tablet 500 mg PO Q6H PRN0RF ibuprofen 200 mg tablet 200 mg PO Q6H PRN0RF Referrals: Bryan Hidalgo MD [Physician] - (finger fracture) Stand Alone Forms: Work/School Release Interventions: ED Discharge Assessment Last Done: 06/18/21 17:08 Discharge Date/Time: 06/18/21 17:13 Print Language: Vincentian
[2021-06-18] MEDS: oxyCODONE HCl Immed Release 5 MG TABLET PO (16:32)
== END 2021-06-18 17:13 | disposition home or self-care (01) ==
PROVIDERS: Emergency Provider Emergency Medicine
DX: S62.635A Displaced fracture of distal phalanx of left ring finger, initial encounter for closed fracture (principal); W23.0XXA Caught, crushed, jammed, or pinched between moving objects, initial encounter; Y93.9 Activity, unspecified; Y92.810 Car as the place of occurrence of the external cause; Y99.9 Unspecified external cause status
CPT/HCPCS: 29130; 73130; 99282; 99283

== ENCOUNTER 2021-06-23 07:09 | Outpatient (REF) | payer MEDICAID, SELFPAY ==
--- NOTE | ~2021-06-23 | XR_ITS ---
EXAMINATION: XR HAND, LEFT CLINICAL INFORMATION: Question fracture distal fourth phalanx. COMPARISON: June 18, 2021 TECHNIQUE: PA, lateral, and oblique views of the left hand. FINDINGS: The bones and soft tissues are normal. No fracture. Alignment is anatomic. Joint spaces are maintained. No erosions or soft tissue calcifications. No periosteal new bone formation is identified about the fourth phalanx. No soft tissue swelling is appreciated. XR/XR hand LT min 3V IMPRESSION: No acute fracture or dislocation of the left hand identified.
== END 2021-06-23 07:10 | disposition home or self-care (01) ==
LOC: HO.HOSX 07:09
PROVIDERS: Visit Provider Physician Assistant
DX: S62.608A Fracture of unspecified phalanx of other finger, initial encounter for closed fracture (principal); S69.92XA Unspecified injury of left wrist, hand and finger(s), initial encounter
CPT/HCPCS: 73130; 99202

== ENCOUNTER 2021-06-25 11:34 | Day surgery (SDC) | payer MEDICAID, SELFPAY ==
--- NOTE | 2021-06-25 09:11 | P.OP_ITS ---
Operative Note Operative Note Date of Service: 06/25/21 Narrative: Operative Note Preop diagnosis: 1. Left middle finger proximal nail avulsion sitting on top of eponychial fold Postop diagnosis: same Procedure: 1. Left middle finger excision of proximal nail plate Surgeon: Aziza Youngblood MD Anesthesia: digital block using 1% lidocaine with epinephrine Findings: Proximal ulnar aspect of the nail plate was sitting on top of the eponychial fold. The remaining part of the nail plate was adherent distally. I gave her the choice of either removing the whole nail or just removing the part of the nail that was sitting on the skin and she wished to just have the pro ximal part of the nail was sitting on the skin removed. EBL: Less than 5 mL Tourniquet time: None Specimens: None Complications: None Disposition: Brought to recovery room in stable condition Plan: Follow-up for 7-10 days for wound check Indications: The patient is 36 years old, with a left middle finger proximal nail avulsion with part of the nail sitting on top of the eponychial fold. She also has a distal phalanx fracture at the tip of the distal phalanx and is currently on antibiotics. . The risks and benefits of operative treatment including but not limited to risk of damage to blood vessels, nerves, tendons, infection, persistent pain, persistent symptoms, recurrence or possible need for additional surgery were discussed with the patient and the patient wishes to proceed with surgery. Procedure: Once consent was obtained a digital block was performed in the preop area using a combination of 1% lidocaine with epinephrine. The patient was then brought back to the operating suite and placed on the operative table in supine position. A tourniquet was applied to the proximal aspect of the left upper extremity and the limb was prepped and draped in a standard surgical fashion. Once assured that we had a good block, I asked her whether she would like me to remove her entire nail plate or if she wished for me to just remove the part of the nail that was sitting on top of the skin and damaging it. She preferred the latter. I used a [place] elevator and some straight tenotomy scissors to 1st elevate and then cut the proximal ulnar corner of the nail plate that was sitting on the eponychial fold. The more radial portion of the nail plate was sitting beneath the eponychial fold and more distal aspect of the nail plate appeared to be well affixed to the underlying nail bed. There was some hematoma that was expressed but no evidence of infection. He the wound was irrigated with normal saline and small amount of antibiotic ointment, and a sterile dressing was applied. The patient appears to have tolerated the procedure well and with no complications. All digits were well vascularized at the conclusion of the case.
[2021-06-25 11:53] VITALS: BP 101/59; PULSE 92; RESP 16; TEMP 37.1; O2SAT 97; BMI 32.9
[2021-06-25 16:55] VITALS: BP 116/74; PULSE 85; RESP 18; TEMP 37.4; O2SAT 100
--- NOTE | 2021-06-25 17:08 | MHC.SHP ---
Pre-Procedural Eval Section A Date of Service: 06/25/21 The patient is an INPATIENT: No Changes since office visit: No Cold of Flu in the past 2 weeks, No New Medical Problems, No Changes in Medication and No Patient answered all questions The History & Physical has been completed within 30 days and I have reviewed it.: Yes Section B Chief Complaint: injury of finger Allergies: Allergies Allergy/AdvReac Type Severity Reaction Status Date / Time No Known Allergies Allergy Verified 06/23/21 13:58 Plan I have reviewed the history and physical and performed a pertinent physical examination on my patient. No changes have occurred unless specified.
== END 2021-06-25 17:15 | disposition home or self-care (01) ==
PROVIDERS: Visit Provider Orthopaedic Surgery
PROC: (CPT 11730; principal; 2021-06-25 14:00)
DX: S61.303A Unspecified open wound of left middle finger with damage to nail, initial encounter (principal); S62.605A Fracture of unspecified phalanx of left ring finger, initial encounter for closed fracture; R20.2 Paresthesia of skin; W23.0XXA Caught, crushed, jammed, or pinched between moving objects, initial encounter; Y93.89 Activity, other specified; Y92.9 Unspecified place or not applicable; Y99.8 Other external cause status
CPT/HCPCS: 11730; J0171

== ENCOUNTER 2022-03-12 23:22 | Emergency (ER) | payer MEDICAID, SELFPAY ==
[2022-03-12 23:26] VITALS: BP 111/69; PULSE 73; RESP 18; TEMP 36.5; O2SAT 100; BMI 28.8
[2022-03-12 23:44] LABS: IDNOW Serial# 6674DD1D; Strep A Nucleic Acid Positive (Negative)
--- NOTE | 2022-03-12 23:44 | ED_ITS ---
HPI - URI/Sore Throat General Chief Complaint: Upper Respiratory Symptoms Stated Complaint: Sore throat Time Seen by Provider: 03/12/22 23:44 Source: patient Mode of arrival: ambulatory Limitations: no limitations History of Present Illness HPI Narrative: 37-year-old female presents with sore throat and bilateral ear pain since Tuesday. The pain in her throat has gotten worse, she is able to speak and swallow, and does report intermittent chills. She does not have a measured fever however she does not have a thermometer. She did take some Tylenol and Motrin earlier for pain management but did not take any today. MD elicited complaint: sore throat and other (Bilateral ear pain) Onset (ago): week(s) (1) Consistency: constant and progressively worsening Severity: moderate Pain scale (0-10): 7 Description of mucous: clear Able to tolerate fluids by mouth: Yes Exacerbating factors: swallowing and speaking Relieving factors: nothing Associated symptoms: chills, voice changes, sore throat and ear pain Treatments prior to arrival: acetaminophen Related Data Home Medications Medication Instructions Recorded Confirmed acetaminophen 500 mg tablet 500 mg PO Q6H PRN 05/05/20 06/02/20 ibuprofen 200 mg tablet 200 mg PO Q6H PRN 05/05/20 06/02/20 Previous Rx's Medication Instructions Recorded dicyclomine 10 mg capsule 10 mg PO TID #30 caps 04/07/20 ciprofloxacin HCl 250 mg tablet 250 mg PO Q12H 3 days #6 tabs 04/21/20 (Cipro) oxycodone-acetaminophen 5 mg-325 1 - 2 tab PO Q4-6H PRN pain #30 05/13/20 mg tablet (Percocet) tabs amoxicillin 875 mg-potassium 1 tab PO Q12H 10 days #20 tabs 06/18/21 clavulanate 125 mg tablet naproxen 500 mg tablet 500 mg PO BID PRN pain 10 days #20 06/18/21 tabs amoxicillin 875 mg-potassium 1 tab PO Q12H 10 days #20 tabs 03/12/22 clavulanate 125 mg tablet Allergies Allergy/AdvReac Type Severity Reaction Status Date / Time No Known Allergies Allergy Verified 06/23/21 13:58 Review of Systems Review of Systems: Constitutional: positive Fever, positive Chills, positive fatigue, positive Malaise ENT/Mouth: positive sore throat, positive runny nose , positive bilateral ear pain Eyes: No Discharge Cardiovascular: No Chest Pain, No SOB Respiratory: Positive Cough, No Sputum, No Wheezing, No Dyspnea Gastrointestinal: No Nausea, No Vomiting, No Diarrhea Musculoskeletal: positive Myalgia Skin: No rash Neuro: No Headache Yes all other systems are reviewed and are negative PMFSH Past Medical History Attestation statement: The following information was validated with the patient. Source: old records reviewed Medical History Gallstones Hepatic steatosis IBS (irritable colon syndrome) Surgical History History of laparoscopic cholecystectomy Family History Family History Paternal Grandfather Diabetes Paternal Grandmother Diabetes Social History Social History Household Members: Spouse and Children Household Members Other:: ages of kids 3 from husbands prev. m.--17,16,12; 2 smaller: 3 and 4 yr old Alcohol intake: current Alcohol intake frequency: a few times a month Alcohol type: beer, wine and hard liquor Patient Tobacco Use Status: Never used Tobacco Advance Directives: No Advance Directives Information Provided: Yes Current occupational status: employed Current occupation: Office Work Physical Exam Vital Signs: Vital Signs: Last Vital Signs Temp 97.7 F 03/12/22 23:26 Pulse 73 03/12/22 23:26 Resp 18 03/12/22 23:26 BP 111/69 03/12/22 23:26 Pulse Ox 100 03/12/22 23:26 O2 Del Method 03/12/22 23:26 BMI result Body Mass Index 28.8 Appearance: Alert. Oriented X3. Mild distress. Eyes: Pupils equal, round and reactive to light. EOMI. ENT: Pharynx erythematous with bilateral tonsillar swelling and exudate. Centor scale 3. Bilateral tympanic membranes erythematous, bulging, suppurative without perforation. Canals are intact. no mastoid tenderness noted. Neck: Normal inspection. Neck supple. Positive anterior and posterior cervic al lymphadenopathy. No nuchal rigidity. No vertebral tenderness. CVS: Normal heart rate and rhythm. Pulses normal. Respiratory: No respiratory distress. Breath sounds normal. Abdomen: Soft and nontender. Skin: Skin warm and dry. Normal skin color. Normal skin turgor. Extremities: Gait well-balanced well coordinated. Neuro: No motor deficit. No sensory deficit. Cranial nerves 2-12 intact Course Course Course Narrative: 37-year-old female presents for 1 week of sore throat bilateral ear pain with subjective fevers, chills, and voice change. Physical exam indicates pharyngeal erythema with tonsillar swelling and exudate bilaterally. Centor scale 3. No indication her tonsillar abscess or epiglottitis. Bilateral ears are erythematous with bulging tympanic membranes. Membranes are intact. No mastoid tenderness, positive for posterior and anterior cervical lymphadenopathy. No vertebral tenderness or nuchal rigidity. Plan of care is to treat with Augmentin 875 mg twice a day for the next 10 days and supportive measures with Tylenol and Motrin. Patient's strep test is positive. COVID influenza RSV are negative. Patient verbalized understanding of and agrees to plan of care discharge home. Verbalized understanding of signs and symptoms indicating need for emergent intervention. Medications Administered Discontinued Medications Generic Name Dose Route Start Last Admin Trade Name Freq PRN Reason Stop Dose Admin Acetaminophen 650 mg 03/12/22 23:49 03/13/22 00:04 Acetaminophen 325 Mg Tablet PO 03/12/22 23:50 650 mg ONCE ONE Administration Amoxicillin/Clavulanate Potassium 875 mg 03/12/22 23:49 03/13/22 00:04 Amoxicillin/Potassium Clav 875 Mg Tablet PO 03/12/22 23:50 875 mg ONCE ONE Administration Medical Decision Making Differential Diagnosis Differential Diagnoses: The differential diagnosis associated with the presentation includes COVID, RSV, influenza, otitis media, otitis externa, pharyngitis Lab Data MDM Lab Attestation statement: I reviewed the patient's lab results. Labs: Lab Results 03/12/22 03/12/22 03/12/22 Range/Units 23:34 23:34 23:34 COVID-19 (ANURADHA) Negative (Negative) COVID-19 Clin Com See Note Influenza Type A (RAMONE) Negative (Negative) Influenza Type B (RAMONE) Negative (Negative) Influenza A & B Note See Note S. pyogenes GrpA RAMONE Positive A (Negative) External Record Review External record reviewed: Outpatient record Prescription Management I considered prescription management with: Pain Medication (Tylenol and Motrin) and Antibiotic (Augmentin) Discharge Plan Discharge Clinical Impression: Otitis media, Pharyngitis Patient Disposition: Home, Self-Care Instructions: Pharyngitis (ED), Ear Infection (ED) Additional Instructions: You were evaluated for sore throat and ear pain. Your physical exam is consistent with strep pharyngitis and otitis media, an ear infection. Please take Augmentin 875 mg twice a day for the next 10 days. Your COVID influenza RSV test are negative. your strep test was positive. Alternate Tylenol 650 mg every 6 hours and Motrin 600 mg every 6 hours as needed for pain and fever management. Consider taking these medications 3 hours apart so you have pain and fever management every 3 hours. Write down what time you take these medications to prevent accidental overdose. Last dose of Tylenol given at midnight. Next dose of Tylenol is due at 06:00. Tylenol is the same medication as acetaminophen. Consider taking Motrin at 03:00. [address] way you can have pain medication every 3 hours. Motrin is the same medication as ibuprofen and Advil. Thank you for choosing this emergency department for evaluation. Please follow-up with primary care physician as needed. Return to the emergency department for any new, concerning, or worsening symptoms. Prescriptions: New amoxicillin-pot clavulanate 875-125 mg tablet 1 tab PO Q12H 10 Days Qty: 20 0RF No Action dicyclomine 10 mg capsule 10 mg PO TID Qty: 30 0RF ciprofloxacin HCl [Cipro] 250 mg tablet 250 mg PO Q12H 3 Days Qty: 6 0RF oxycodone-acetaminophen [Percocet] 5-325 mg tablet 1 - 2 tab PO Q4-6H PRN (Reason: pain) Qty: 30 0RF amoxicillin-pot clavulanate 875-125 mg tablet 1 tab PO Q12H 10 Days Qty: 20 0RF naproxen 500 mg tablet 500 mg PO BID PRN (Reason: pain) 10 Days Qty: 20 0RF acetaminophen 500 mg tablet 500 mg PO Q6H PRN ibuprofen 200 mg tablet 200 mg PO Q6H PRN Stand Alone Forms: Work/School Release Interventions: ED Discharge Assessment Last Done: 03/13/22 00:07 Discharge Date/Time: 03/13/22 00:08
[2022-03-12 23:55] LABS: COVID-19 Test Negative (Negative); IDNOW Serial# 16C4AD1C; IDNOW Serial# BCCEAD1C; Influenza A Negative (Negative); Influenza B2 Negative (Negative)
--- OUTSIDE RECORDS SUMMARY | 2022-03-12 23:56 | XMS_ITS | Continuity of Care Document ---
:1985 Author Organization [facility] ic Address [address] [place] [address]- Care Team Providers Name Role Phone Aleyda Sexton MD, Ansley Primary Care Physician Encounter [facility] [place] Date(s): 07/11/20 - 08/10/[address] [address]- Attending Physician: Mars Marks Admitting Physician: Mars Marks Referring Physician: AdmtrMars Allergies, Adverse Reactions, Alerts Substance Reaction Severity Status NKA Active Immunizations Given and Recorded Vaccine Date Status Refusal Reason influenza virus vaccine, inactivated 12/10/16 Given influenza virus vaccine, inactivated 11/13/15 Given tetanus/diphtheria/pertussis, acel(Tdap) 12/10/16 Given tetanus/diphtheria/pertussis, acel(Tdap)1 09/04/15 Given 1Result Comment: TDAP VIS given in czech Medications Liletta 52 mg intrauteral device 1 each = 52 mg, Intrauterine, Once, to be placed post-, # 1 each, 0 Refills, Soft Stop, 12/10/16 10:05:10 Start Date: 12/10/16 Status: Ordered Problem List Condition Effective Dates Status Health Status Informant Cholecystolithiasis(Confirmed) Active History of uterine fibroid per Active pt(Confirmed) History of abnormal cervical Pap Active smear; hx of ROGE III(Confirmed)1 Obesity(Confirmed)2 Active 1s/p LEEP [id number] 29, recommend between 15-25 lbs weight gain this Social History Social History Type Response Smoking Status Never smoker; Tobacco user i n household: No entered on: 04/06/17 Sex
--- OUTSIDE RECORDS SUMMARY | 2022-03-12 23:56 | XMS_ITS | Continuity of Care Document ---
:1985 Author Organization [facility] ic Address [address] [place] [address]- Care Team Providers Name Role Phone Aleyda Sexton MD, Ansley Primary Care Physician Encounter [facility] [place] Date(s): 05/06/20 - 06/05/[address] [address]- Allergies, Adverse Reactions, Alerts Substance Reaction Severity Status NKA Active Immunizations Given and Recorded Vaccine Date Status Refusal Reason influenza virus vaccine, inactivated 12/10/16 Given influenza virus vaccine, inactivated 11/13/15 Given tetanus/diphtheria/pertussis, acel(Tdap) 12/10/16 Given tetanus/diphtheria/pertussis, acel(Tdap)1 09/04/15 Given 1Result Comment: TDAP VIS given in sinhala Medications Liletta 52 mg intrauteral device 1 each = 52 mg, Intrauterine, Once, to be placed post-, # 1 each, 0 Refills, Soft Stop, 12/10/16 10:05:10 Start Date: 12/10/16 Status: Ordered Problem List Condition Effective Dates Status Health Status Informant History of uterine fibroid per Active pt(Confirmed) History of abnormal cervical Pap Active smear; hx of ROGE III(Confirmed)1 Obesity(Confirmed)2 Active 1s/p LEEP [id number] 29, recommend between 15-25 lbs weight gain this Social History Social History Type Response Smoking Status Never smoker; Tobacco user i n household: No entered on: 04/06/17 Sex
--- OUTSIDE RECORDS SUMMARY | 2022-03-12 23:56 | XMS_ITS | Continuity of Care Document ---
:1985 Author Organization [facility] ic Address [address] [place] [address]- Care Team Providers Name Role Phone Ansley Brown MD Primary Care Physician Encounter [facility] [place] Date(s): 11/10/21 - 12/10/[address] [address] Attending Physician: Mars Marks Admitting Physician: Admtr, Mars Referring Physician: Admtr, Mars Allergies, Adverse Reactions, Alerts No Known Allergies Immunizations Given and Recorded Vaccine Date Status Refusal Reason influenza virus vaccine, inactivated 12/10/16 Given influenza virus vaccine, inactivated 11/13/15 Given tetanus/diphtheria/pertussis, acel(Tdap) 12/10/16 Given tetanus/diphtheria/pertussis, acel(Tdap)1 09/04/15 Given 1Result Comment: TDAP VIS given in british virgin islander Medications Liletta 52 mg intrauteral device 1 each = 52 mg, Intrauterine, Once, to be placed post-, # 1 each, 0 Refills, Soft Stop, 12/10/16 10:05:10 Start Date: 12/10/16 Status: Ordered Problem List Condition Confirmation Course Effective Status Health Informa nt Dates Status Cholecystolithiasis Confirmed Active History of uterine Confirmed Active fibroid per pt History of abnormal Confirmed Active cervical Pap smear; hx of ROGE III1 Obese class I Confirmed Active Obesity2 Confirmed Active 1s/p LEEP [id number] 29, recommend between 15-25 lbs weight gain this Social History Social History Type Response Smoking Status Never smoker; Tobacco user i n household: No entered on: 04/06/17 Sex Patient Care team information PersonnelName: Ansley Brown MD Address: Address: [address] [place] [address], [place] [address]- [place]
--- OUTSIDE RECORDS SUMMARY | 2022-03-12 23:56 | XMS_ITS | Continuity of Care Document ---
:1985 Author Organization [facility] ic Address [address] [place] [address]- Care Team Providers Name Role Phone Aleyda Sexton MD, Ansley Primary Care Physician Encounter [facility] [place] Date(s): 09/18/20 - 10/18/[address] [address]- Attending Physician: Mars Marks Admitting Physician: Admtr, Mars Referring Physician: Admtr, ArIsma Allergies, Adverse Reactions, Alerts Substance Reaction Severity Status NKA Active Immunizations Given and Recorded Vaccine Date Status Refusal Reason influenza virus vaccine, inactivated 12/10/16 Given influenza virus vaccine, inactivated 11/13/15 Given tetanus/diphtheria/pertussis, acel(Tdap) 12/10/16 Given tetanus/diphtheria/pertussis, acel(Tdap)1 09/04/15 Given 1Result Comment: TDAP VIS given in hungarian Medications Liletta 52 mg intrauteral device 1 [...] of ROGE III(Confirmed)1 Obesity(Confirmed)2 Active 1s/p LEEP [id number] 29, recommend between 15-25 lbs weight gain this Social History Social History Type Response Smoking Status Never smoker; Tobacco user i n household: No entered on: 04/06/17 Sex
--- OUTSIDE RECORDS SUMMARY | 2022-03-12 23:56 | XMS_ITS | Continuity of Care Document ---
:1985 Author Organization [facility] ic Address [address] [place] [address]- Care Team Providers Name Role Phone Aleyda Sexton MD, Ansley Primary Care Physician Encounter [facility] Date(s): 06/26/20 - 07/26/[address] [address] Allergies, Adverse Reactions, Alerts Substance Reaction Severity Status NKA Active Immunizations Given and Recorded Vaccine Date Status Refusal Reason influenza virus vaccine, inactivated 12/10/16 Given influenza virus vaccine, inactivated 11/13/15 Given tetanus/diphtheria/pertussis, acel(Tdap) 12/10/16 Given tetanus/diphtheria/pertussis, acel(Tdap)1 09/04/15 Given 1Result Comment: TDAP VIS given in tajik Medications Liletta 52 mg intrauteral device 1 [...] of ROGE III(Confirmed)1 Obesity(Confirmed)2 Active 1s/p LEEP [id number] 29, recommend between 15-25 lbs weight gain this Social History Social History Type Response Smoking Status Never smoker; Tobacco user i n household: No entered on: 04/06/17 Sex
--- OUTSIDE RECORDS SUMMARY | 2022-03-12 23:56 | XMS_ITS | Continuity of Care Document ---
:1985 Author Organization [facility] ic Address [address] [place] [address]- Care Team Providers Name Role Phone Aleyda Sexton MD, Ansley Primary Care Physician [place] [facility] [place] 04/16/20 - 05/16/[address] [address]- Allergies, Adverse Reactions, Alerts Substance Reaction Severity Status NKA Active Immunizations Given and Recorded Vaccine Date Status Refusal Reason influenza virus vaccine, inactivated 12/10/16 Given influenza virus vaccine, inactivated 11/13/15 Given tetanus/diphtheria/pertussis, acel(Tdap) 12/10/16 Given tetanus/diphtheria/pertussis, acel(Tdap)1 09/04/15 Given 1Result Comment: TDAP VIS given in panamanian Medications Liletta 52 mg intrauteral device 1 each = 52 mg, Intrauterine, Once, to be placed post-, # 1 each, 0 Refills, Soft Stop, 12/10/16 10:05:10 Start Date: 12/10/16 Status: Ordered Problem List Condition Effective Dates Status Health Status Informant History of uterine fibroid per Active pt(Confirmed) History of abnormal cervical Pap Active smear; hx of ROGE III(Confirmed)1 Obesity(Confirmed)2 Active 1s/p LEEP [id number] 29, recommend between 15-25 lbs weight gain this Social History Social History Type Response Smoking Status Never smoker; Tobacco user i n household: No entered on: 04/06/17 Sex
--- OUTSIDE RECORDS SUMMARY | 2022-03-12 23:56 | XMS_ITS | Continuity of Care Document ---
:1985 Author Organization [facility] ic Address [address] [place] [address]- Care Team Providers Name Role Phone Aleyda Sexton MD, Ansley Primary Care Physician Encounter [facility] Date(s): 07/09/20 - 08/08/[address] [address] Allergies, Adverse Reactions, Alerts Substance Reaction Severity Status NKA Active Immunizations Given and Recorded Vaccine Date Status Refusal Reason influenza virus vaccine, inactivated 12/10/16 Given influenza virus vaccine, inactivated 11/13/15 Given tetanus/diphtheria/pertussis, acel(Tdap) 12/10/16 Given tetanus/diphtheria/pertussis, acel(Tdap)1 09/04/15 Given 1Result Comment: TDAP VIS given in mongolian Medications Liletta 52 mg intrauteral device 1 [...] of ROGE III(Confirmed)1 Obesity(Confirmed)2 Active 1s/p LEEP [id number] 29, recommend between 15-25 lbs weight gain this Social History Social History Type Response Smoking Status Never smoker; Tobacco user i n household: No entered on: 04/06/17 Sex
--- OUTSIDE RECORDS SUMMARY | 2022-03-12 23:56 | XMS_ITS | Continuity of Care Document ---
:1985 Author Organization [facility] ic Address [address] [address]- Care Team Providers Name Role Phone Aleyda Sexton MD, Ansley Primary Care Physician Encounter [facility] [place] Date(s): 05/05/20 - 07/23/[address] [address]- Attending Physician: Not on Staff, Attending MD Allergies, Adverse Reactions, Alerts Substance Reaction Severity Status NKA Active Immunizations Given and Recorded Vaccine Date Status Refusal Reason influenza virus vaccine, inactivated 12/10/16 Given influenza virus vaccine, inactivated 11/13/15 Given tetanus/diphtheria/pertussis, acel(Tdap) 12/10/16 Given tetanus/diphtheria/pertussis, acel(Tdap)1 09/04/15 Given 1Result Comment: TDAP VIS given in moldovan Medications Liletta 52 mg intrauteral device 1 [...] of ROGE III(Confirmed)1 Obesity(Confirmed)2 Active 1s/p LEEP [id number] 29, recommend between 15-25 lbs weight gain this Social History Social History Type Response Smoking Status Never smoker; Tobacco user i n household: No entered on: 04/06/17 Sex
--- OUTSIDE RECORDS SUMMARY | 2022-03-12 23:56 | XMS_ITS | Continuity of Care Document ---
:1985 Author Organization [facility] ic Address [address] [place] [address]- Care Team Providers Name Role Phone Aleyda Sexton MD, Ansley Primary Care Physician Encounter [facility] Date(s): 02/20/20 - 03/21/[address] [address] Allergies, Adverse Reactions, Alerts Substance Reaction Severity Status NKA Active Immunizations Given and Recorded Vaccine Date Status Refusal Reason influenza virus vaccine, inactivated 12/10/16 Given influenza virus vaccine, inactivated 11/13/15 Given tetanus/diphtheria/pertussis, acel(Tdap) 12/10/16 Given tetanus/diphtheria/pertussis, acel(Tdap)1 09/04/15 Given 1Result Comment: TDAP VIS given in belarusian Medications Liletta 52 mg intrauteral device 1 each = 52 mg, Intrauterine, Once, to be placed post-, # 1 each, 0 Refills, Soft Stop, 12/10/16 10:05:10 Start Date: 12/10/16 Status: Ordered Problem List Condition Effective Dates Status Health Status Informant History of uterine fibroid per Active pt(Confirmed) History of abnormal cervical Pap Active smear; hx of ROGE III(Confirmed)1 Obesity(Confirmed)2 Active 1s/p LEEP [id number] 29, recommend between 15-25 lbs weight gain this Social History Social History Type Response Smoking Status Never smoker; Tobacco user i n household: No entered on: 04/06/17 Sex
--- OUTSIDE RECORDS SUMMARY | 2022-03-12 23:56 | XMS_ITS | Continuity of Care Document ---
:1985 Author Organization [facility] ic Address [address] [place] [address]- Care Team Providers Name Role Phone Aleyda Sexton MD, Ansley Primary Care Physician Encounter [facility] [place] Date(s): 07/10/20 - 08/10/[address] [address]- Attending Physician: Not on Staff, Attending MD Allergies, Adverse Reactions, Alerts Substance Reaction Severity Status NKA Active Immunizations Given and Recorded Vaccine Date Status Refusal Reason influenza virus vaccine, inactivated 12/10/16 Given influenza virus vaccine, inactivated 11/13/15 Given tetanus/diphtheria/pertussis, acel(Tdap) 12/10/16 Given tetanus/diphtheria/pertussis, acel(Tdap)1 09/04/15 Given 1Result Comment: TDAP VIS given in greenlandic Medications Liletta 52 mg intrauteral device 1 [...] of ROGE III(Confirmed)1 Obesity(Confirmed)2 Active 1s/p LEEP [id number] 29, recommend between 15-25 lbs weight gain this Social History Social History Type Response Smoking Status Never smoker; Tobacco user i n household: No entered on: 04/06/17 Sex
--- OUTSIDE RECORDS SUMMARY | 2022-03-12 23:56 | XMS_ITS | Continuity of Care Document ---
:1985 Author Organization [facility] ic Address [address] [place] [address]- Care Team Providers Name Role Phone Aleyda Sexton MD, Ansley Primary Care Physician Encounter [facility] Date(s): 10/02/20 - 11/01/[address] [address]- Allergies, Adverse Reactions, Alerts Substance Reaction Severity Status NKA Active Immunizations Given and Recorded Vaccine Date Status Refusal Reason influenza virus vaccine, inactivated 12/10/16 Given influenza virus vaccine, inactivated 11/13/15 Given tetanus/diphtheria/pertussis, acel(Tdap) 12/10/16 Given tetanus/diphtheria/pertussis, acel(Tdap)1 09/04/15 Given 1Result Comment: TDAP VIS given in hebrew Medications Liletta 52 mg intrauteral device 1 [...] of ROGE III(Confirmed)1 Obesity(Confirmed)2 Active 1s/p LEEP [id number] 29, recommend between 15-25 lbs weight gain this Social History Social History Type Response Smoking Status Never smoker; Tobacco user i n household: No entered on: 04/06/17 Sex
--- OUTSIDE RECORDS SUMMARY | 2022-03-12 23:56 | XMS_ITS | Continuity of Care Document ---
:1985 Author Organization [facility] ic Address [address] [place] [id number]- Care Team Providers Name Role Phone Aleyda Sexton MD, [place] Primary Care Physician Encounter [facility] [place] Date(s): 04/26/20 - 08/24/[address] [address]- Attending Physician: Not on Staff, Attending MD Allergies, Adverse Reactions, Alerts Substance Reaction Severity Status NKA Active Immunizations Given and Recorded Vaccine Date Status Refusal Reason influenza virus vaccine, inactivated 12/10/16 Given influenza virus vaccine, inactivated 11/13/15 Given tetanus/diphtheria/pertussis, acel(Tdap) 12/10/16 Given tetanus/diphtheria/pertussis, acel(Tdap)1 09/04/15 Given 1Result Comment: TDAP VIS given in [place] Medications Liletta 52 mg intrauteral device 1 [...] of ROGE III(Confirmed)1 Obesity(Confirmed)2 Active 1s/p LEEP [id number] 29, recommend between 15-25 lbs weight gain this Social History Social History Type Response Smoking Status Never smoker; Tobacco user i n household: No entered on: 04/06/17 Sex
[2022-03-13] MEDS: Amoxicillin/Potassium Clav 875 MG TABLET PO (00:04)
[2022-03-13] MEDS: Acetaminophen 325 MG TABLET 650 MG PO (00:04)
== END 2022-03-13 00:08 | disposition home or self-care (01) ==
PROVIDERS: Student in an Organized Health Care Education/Training Program; Emergency Provider Internal Medicine
DX: H66.93 Otitis media, unspecified, bilateral (principal); J02.9 Acute pharyngitis, unspecified; Z20.822 Contact with and (suspected) exposure to COVID-19; Z20.828 Contact with and (suspected) exposure to other viral communicable diseases; Z79.899 Other long term (current) drug therapy
CPT/HCPCS: 87502; 87635; 87651; 99283

== ENCOUNTER → 2022-03-25 13:18 | Outpatient (BNVA) | payer SELFPAY | PROVIDERS: Visit Provider Physician Assistant Medical | DX: Z02.79 Encounter for issue of other medical certificate (principal) ==

== ENCOUNTER 2022-04-24 08:25 | Emergency (ER) | payer MEDICAID, SELFPAY ==
[2022-04-24 08:37] VITALS: BP 104/62; PULSE 92; RESP 18; TEMP 36.3; O2SAT 98; BMI 30.7
[2022-04-24 08:55] LABS: IDNOW Serial# 08D9AD1C; Strep A Nucleic Acid Negative (Negative)
--- NOTE | 2022-04-24 08:55 | ED_ITS ---
HPI - URI/Sore Throat General Chief Complaint: Upper Respiratory Symptoms Stated Complaint: throat pain Time Seen by Provider: 04/24/22 08:48 Source: patient Mode of arrival: ambulatory Limitations: no limitations History of Present Illness HPI Narrative: 37 yo female with history of gallstones, irritable bowl syndrome, history of strep throat 6 weeks ago presents to the ER for evaluation of sore throat for the last 4 days. She reports she had extra amoxicillin left over and has been taking it for the last 3 days with no improvement. She reports a pain with eating and drinking. No voice changes or difficulty handling her secretions. She denies fever or chills but reports a slight cough. She has a 5 yo and 6yo at home with no symptoms. MD elicited complaint: sore throat Onset (ago): day(s) (4) Consistency: constant Severity: moderate Able to tolerate fluids by mouth: Yes Exacerbating factors: swallowing Relieving factors: nothing Associated symptoms: cough Treatments prior to arrival: none Related Data Home Medications Medication Instructions Recorded Confirmed acetaminophen 500 mg tablet 500 mg PO Q6H PRN 05/05/20 06/02/20 ibuprofen 200 mg tablet 200 mg PO Q6H PRN 05/05/20 06/02/20 Previous Rx's Medication Instructions Recorded dicyclomine 10 mg capsule 10 mg PO TID #30 caps 04/07/20 ciprofloxacin HCl 250 mg tablet 250 mg PO Q12H 3 days #6 tabs 04/21/20 (Cipro) oxycodone-acetaminophen 5 mg-325 1 - 2 tab PO Q4-6H PRN pain #30 05/13/20 mg tablet (Percocet) tabs amoxicillin 875 mg-potassium 1 tab PO Q12H 10 days #20 tabs 06/18/21 clavulanate 125 mg tablet naproxen 500 mg tablet 500 mg PO BID PRN pain 10 days #20 06/18/21 tabs amoxicillin 875 mg-potassium 1 tab PO Q12H 10 days #20 tabs 03/12/22 clavulanate 125 mg tablet ibuprofen 600 mg tablet 600 mg PO Q8H PRN pain #20 tabs 04/24/22 Allergies Allergy/AdvReac Type Severity Reaction Status Date / Time No Known Allergies Allergy Verified 06/23/21 13:58 Review of Systems Review of Systems: Yes all other systems are reviewed and are negative PMFSH Past Medical History Medical History Gallstones Hepatic steatosis IBS (irritable colon syndrome) Surgical History History of laparoscopic cholecystectomy Family History Family History Paternal Grandfather Diabetes Paternal Grandmother Diabetes Social History Social History Household Members: Spouse and Children Household Members Other:: ages of kids 3 from husbands prev. m.--17,16,12; 2 smaller: 3 and 4 yr old Alcohol intake: current Alcohol intake frequency: a few times a month Alcohol t ype: beer, wine and hard liquor Patient Tobacco Use Status: Never used Tobacco Advance Directives: No Advance Directives Information Provided: No Current occupational status: employed Current occupation: Office Work Physical Exam Vital Signs: Vital Signs: Last Vital Signs Temp 97.4 F 04/24/22 08:37 Pulse 92 04/24/22 08:37 Resp 18 04/24/22 08:37 BP 104/62 04/24/22 08:37 Pulse Ox 98 04/24/22 08:37 O2 Del Method 04/24/22 08:37 BMI result Body Mass Index 30.7 Appearance: Alert. Oriented X3. No acute distress. Eyes: Pupils equal, round and reactive to light. ENT: Pharynx normal. Moist mucus membranes. Mild posterior pharynx erythema, no tonsillar swelling or exudate. uvula midline. normal voice. Neck: Normal inspection. Neck supple. No LAD CVS: Normal heart rate and rhythm. Pulses normal. Respiratory: No respiratory distress. Breath sounds normal. Skin: Skin warm and dry. Normal skin color. Normal skin turgor. No rashes. Extremities: No lower extremity edema. Neuro: Oriented X 3. No motor deficit. No sensory deficit. Medical Decision Making Medical Decision Making MDM Narrative: 37-year-old female with history of strep throat 1 month ago presents to the ER for evaluation of 4 days of sore throat. No improvement with oral antibiotics at home. Her strep test today is negative. Her exam is not consistent with strep pharyngitis, no tonsillar swelling or exudate. No lymphadenopathy to suggest mononucleosis. Most likely viral pharyngitis. She appears well with stable vital signs. We discussed symptomatic care of sore throat due to viruses including salt water gargles, [id number] remedies. Will prescribe anti-inflammatories for her pain. She is stable for discharge home. Patient agrees with plan all questions were answered Differential Diagnosis Differential Diagnoses: The differential diagnosis associated with the presentation includes Strep pharyngitis, viral pharyngitis, mononucleosis, no evidence of acute retropharyngeal or peritonsillar abscess. Lab Data MDM Lab Attestation statement: I reviewed the patient's lab results. Labs: Lab Results 04/24/22 Range/Units 08:43 S. pyogenes GrpA RAMONE Negative (Negative) External Record Review External record reviewed: Outpatient record Prescription Management I considered prescription management with: Pain Medication Critical Care Time Critical Care Time Critical Care Time: No Discharge Plan Discharge Clinical Impression: Acute viral pharyngitis Patient Disposition: Home, Self-Care Instructions: Pharyngitis (ED) Additional Instructions: Your Strep test today was NEGATIVE. Stop taking the antibiotics. Take the prescribed ant-inflammatory pain medication Use warm salt water gargled 3-4 times per day Recommend over the counter Cepacol lozenges and Chloraseptic spray for your sore throat Rest and drink plenty of fluids Follow up with your doctor as needed Prescriptions: New ibuprofen 600 mg tablet 600 mg PO Q8H PRN (Reason: pain) Qty: 20 0RF No Action dicyclomine 10 mg capsule 10 mg PO TID Qty: 30 0RF ciprofloxacin HCl [Cipro] 250 mg tablet 250 mg PO Q12H 3 Days Qty: 6 0RF oxycodone-acetaminophen [Percocet] 5-325 mg tablet 1 - 2 tab PO Q4-6H PRN (Reason: pain) Qty: 30 0RF amoxicillin-pot clavulanate 875-125 mg tablet 1 tab PO Q12H 10 Days Qty: 20 0RF naproxen 500 mg tablet 500 mg PO BID PRN (Reason: pain) 10 Days Qty: 20 0RF amoxicillin-pot clavulanate 875-125 mg tablet 1 tab PO Q12H 10 Days Qty: 20 0RF acetaminophen 500 mg tablet 500 mg PO Q6H PRN ibuprofen 200 mg tablet 200 mg PO Q6H PRN
== END 2022-04-24 11:16 | disposition home or self-care (01) ==
PROVIDERS: Emergency Provider Emergency Medicine
DX: J02.9 Acute pharyngitis, unspecified (principal)
CPT/HCPCS: 36415; 87651; 99282; 99283

== ENCOUNTER → 2023-02-02 08:59 | Outpatient (BNVA) | payer MEDICAID, SELFPAY | PROVIDERS: Visit Provider Physician Assistant ==

== ENCOUNTER 2023-03-01 11:22 | Outpatient (AMB) | payer MEDICAID, SELFPAY ==
--- NOTE | 2023-03-01 10:53 | A.OFFVIS_ITS ---
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 Her goal is to lose around 45 lbs and keep it off. She reports first being concerned about her weight 6 years ago after the of her second child. She has tried multiple methods of weight loss including protein shakes and exercise without permanent results. She lives with and her 5 children, youngest is 6 years old. She works [employer], 7am - 9am and then 2 pm - 4:30 pm. She wakes at: 5:30 am bed at 9 pm - 10:30 pm Coffee at either 6 am or 12 pm or Red Bull Breakfast: 9am - sandwich of white bread with cheese/egg/ham, plantains and yucca. water or whole milk Lunch: 12- 1pm - skips this 3 -4 d/week. If eats, has rice, beans and meat with avocado and banana. Vegetables 1 -2d/ week Dinner: 6 pm - bread with cheese/crackers or chips..... Vegetables 3 d/ week. After dinner: 1 serving of fruit or nuts or crackers, ice cream, - one to 2 snacks per night. Other snacks: none Liquids: Soda with pizza once per week. Tea 3-4 d/ week. Coffee powdered creamer and sugar Alcohol intake: 1 -2 d month, tobacco: none, marijuana: none Exercise: treadmill at home - last used 3-4 months. control method: IUD MONE: 0 ESS:10 GERD:0 QOL: 44 PFSH Medical History Gallstones Hepatic steatosis IBS (irritable colon syndrome) Surgical History History of laparoscopic cholecystectomy Family History Paternal Grandfather Diabetes Paternal Grandmother Diabetes Social History Household Members: Spouse and Children Household Members Other:: ages of kids 3 from husbands prev. m.--17,16,12; 2 smaller: 3 and 4 yr old Alcohol intake: current Alcohol intake frequency: a few times a month Alcohol type: beer, wine and hard liquor Patient Tobacco Use Status: Never used Tobacco Current occupational status: employed Current occupation: Office Work Assessment & Plan Assessment & Plan (1) Obesity: Code(s): E66.9 - Obesity, unspecified Plan: This is a 38 yo woman with obesity and hepatic steatosis who will start MWL program. She will start MWL classes and watch all classes before her next appt with Giselle. 1. Adequate sleep of 7-8 hours per night discussed 2. Healthy meal plan - no skipping meals Coffee or tea with milk and no sweetener All meals/MR's need to take 20 minutes to complete 9 am - protein shake with water or UAM 12 pm - 4oz (8 forks) protein 6 oz vegetable 4:30 pm-dinner of 12 forks (6 oz) lean protein, 12 forks (6oz) vegetable, 1 serving fruit 7pm -shake Exercise - Cardio 4 d week = treadmill at speed 2.8 - 3.5 , can not change incline burn 300 calories (10 suzie/minute) - goal 2,000 suzie/minute Pt will purchase body composition analyzer (recommended list given to patient) and weight herself weekly. Next appt with Giselle in 4 weeks and in 8 weeks. Text me with any questions and weekly weights. Patient is obese and is not considered stable at this time.?I spent a total of 60 minutes reviewing/updating records, examining the patient and counseling the patient on weight management as detailed above. Telehealth Telehealth Location of provider rendering services: practice address Location of patient: address on file Patient Identification confirmed using: Name, : Yes Telehealth method: video Patient verbally consented to treatment: Yes Patient verbally consented to billing insurance company: Yes Patient informed of any privacy concerns related to visit: Yes Coding Level of Care Code Tele New Pt Level 5 (32560) Diagnoses Obesity E66.9
== END 2023-03-01 11:55 | disposition home or self-care (01) ==
LOC: HO.HBS 11:22
PROVIDERS: PCP Nurse Practitioner Primary Care; Visit Provider Physician Assistant
DX: E66.9 Obesity, unspecified (principal); Z68.34 Body mass index [BMI] 34.0-34.9, adult
CPT/HCPCS: 99205

== ENCOUNTER → 2023-03-01 11:22 | Outpatient (BNVA) | payer MEDICAID, SELFPAY | PROVIDERS: PCP Nurse Practitioner Primary Care; Visit Provider Physician Assistant ==

== ENCOUNTER 2023-03-22 10:45 | Outpatient (AMB) | payer MEDICAID, SELFPAY ==
--- NOTE | 2023-03-22 10:35 | MHC.AMNUTRGE ---
Intake Intake Visit Reasons: (TV) Initial Nutrition [facility] Build[employer] And [employer]ounds Coordinator Required: No Allergies No Known Allergies Allergy (Verified 02/02/23 13:10) HPI Nutrition Presentation Details [facility] start date - 03/01/23 no weight for today Reason for consult elevated BMI Diet Assmnt Details I am not doing well. I need to eat more than I am. My body is asking for more unhealthy food . She feels very tempted to eat rice/beans with dinner. Reports having a routine is very hard. She is the one who does the grocery shopping for the household, buys a lot of sweets and desserts. Is very tempted in the store to buy them. Struggles with emotional eating. Experiences anxiety and self soothes with food. she has a therapist. She has discussed this with her therapist in the past. She has 2 small boys who have autism, she states they require her attention and this limits her to doing certain things such as meditating, walking, exercising, yoga, etc. Dietary counseling reduction Diagnosis Nutrition problem #1 overweight/obesity As related to (etiology) #1 excess energy intake and physical inactivity As evidenced by (sign/symptom) #1 high BMI Monitoring/Goals Nutrition problem monitoring total energy intake, level of knowledge/skill, total PRO intake, total CHO intake and weight Learning/Education Stages of change contemplation Most Recent Diabetes Results: No Data to Display [facility] Medical History Gallstones Hepatic steatosis IBS (irritable colon syndrome) Surgical History History of laparoscopic cholecystectomy Family History Paternal Grandfather Diabetes Paternal Grandmother Diabetes Social History Household Members: Spouse and Children Household Members Other:: ages of kids 3 from husbands prev. m.--17,16,12; 2 smaller: 3 and 4 yr old Alcohol intake: current Alcohol intake frequency: a few times a month Alcohol type: beer, wine and hard liquor Patient Tobacco Use Status: Never used Tobacco Current occupational status: employed Current occupation: Office Work Assessment & Plan Assessment & Plan (1) Obesity (BMI 30-39.9): Code(s): E66.9 - Obesity, unspecified Plan encouraged focusing on what she can add to her plate (lean protein and vegetables) and still having rice/beans but in appropriate portions. She will need to discuss coping strategies with her therapist. Also try to establish a consistent exercise routine for mental health and anxiety. She will consider doing grocery cone picker orders so she is not tempted by the sweets in the store. We discussed possibly getting ongoing support from an RD in the community. For now, she will f/u with Alina PATE as previously scheduled. Telehealth Telehealth Location of provider rendering services: other (home address [facility] ) Location of patient: address on file Patient Identification confirmed using: Name, : Yes Telehealth method: voice only Patient verbally consented to treatment: Yes Patient verbally consented to billing insurance company: Yes Patient informed of any privacy concerns related to visit: Yes Minutes spent on Phone/Video with Pt.: 30 Coding Level of Care Code Nutr Indiv Intake (83838) Diagnoses Obesity (BMI 30-39.9) E66.9 Time Spent (min) 30
== END 2023-03-22 10:54 | disposition home or self-care (01) ==
LOC: HO.HBS 10:45
PROVIDERS: PCP Nurse Practitioner Primary Care; Visit Provider Dietitian, Registered
DX: E66.9 Obesity, unspecified (principal)

== ENCOUNTER → 2023-03-22 10:45 | Outpatient (BNVA) | payer MEDICAID, SELFPAY | PROVIDERS: PCP Nurse Practitioner Primary Care; Visit Provider Dietitian, Registered | DX: E66.9 Obesity, unspecified (principal) | CPT/HCPCS: 97802 ==

== ENCOUNTER 2023-08-30 10:09 | Outpatient (REF) | payer MEDICAID, SELFPAY ==
[2023-08-30 11:34] LABS: Estimated Average Glucose 91 mg/dL; Hemoglobin A1c % 4.8 % (<6.0)
[2023-08-30 11:52] LABS: Alanine Aminotransferase 14 U/L (0-31); Albumin Level 4.1 g/dL (3.5-5.0); Alkaline Phosphatase 49 U/L (39-117); Anion Gap 13 (12-20); Aspartate Amino Transferase 15 U/L (5-31); Bilirubin Total 0.4 mg/dL (0.0-1.0); Blood Urea Nitrogen 14 mg/dL (9-16); Carbon Dioxide 23 mmol/L (22-29); Chloride 107 mmol/L (96-108); Cholesterol 164 mg/dL (<200); Estimated Glomerular Filt Rate > 60; Glucose Random 85 mg/dL (60-115); HDL Cholesterol 53 mg/dL (>40); LDL Cholesterol Calculated 103 mg/dL (<100); Potassium 3.9 mmol/L (3.3-5.1); Sodium 139 mmol/L (135-145); Total Protein 7.5 g/dL (6.5-8.0); Triglycerides 44 mg/dL (<150)
[2023-08-30 12:07] LABS: TSH reflex Free T4 1.39 uIU/mL (0.32-4.0)
[2023-08-31 08:48] LABS: HIV AB/AG Nonreactive (Nonreactive); HIV Num 1 0.08 S/CO (0.00-0.99)
[2023-09-01 06:53] LABS: RPR Rapid Plasma Reagin NON-REACTIVE (NON-REACTIVE)
== END 2023-08-30 10:10 | disposition home or self-care (01) ==
LOC: HO.HHCL 10:09
PROVIDERS: Visit Provider Nurse Practitioner Primary Care
DX: Z00.00 Encounter for general adult medical examination without abnormal findings (principal); E66.9 Obesity, unspecified; Z68.32 Body mass index [BMI] 32.0-32.9, adult
CPT/HCPCS: 36415; 80053; 80061; 83036; 84443; 86592; 87389

== ENCOUNTER 2024-05-13 01:29 | Emergency (ER) | payer MEDICAID, SELFPAY ==
--- NOTE | ~2024-05-13 | XR_ITS ---
CLINICAL HISTORY: cough 1 view chest x-ray Comparison: None Findings: Left basilar opacity or infiltrate. Normal size heart. No acute fracture. IMPRESSION: Left basilar opacity or infiltrate. This document has been electronically signed by: Rico Clark MD, PHD on 05/13/2024 02:46:33
[2024-05-13 01:36] VITALS: BP 159/81; PULSE 86; RESP 18; TEMP 37.3; O2SAT 100; BMI 32.1
--- OUTSIDE RECORDS SUMMARY | 2024-05-13 01:54 | XMS_ITS | Encounter Summary ---
Author Organization [employer] Address [address] [place] [address] Care Team Providers Care Culinary Artist Name Role Phone Leatha Yip Primary Care Provider [phone] Encounter Details Date Type Department Care Team (Latest Contact Info) Description 08/21/2018 Abstract [facility] CONVERSIONS Dental, Provider, DDS Social History Tobacco Use Types Packs/Day Years Used Date Smoking Tobacco: Never Assessed Comments Unknown Sex and Gender Information Value Date Recorded Sex Assigned at Female 12/07/2021 10:20 AM EDT Legal Sex Female 10:20 AM EDT Gender Identity Female 12/07/2021 10:20 AM EDT Sexual Orientation Straight 12/07/2021 10 :20 AM EDT documented as of this encounter Plan of Treatment Not on file documented as of this encounter Visit Diagnoses Not on filedocumented in this encounter Care Teams Culinary Artist Relationship Specialty Start Date End Date Leatha Yip ANP [address] [place] [id number] PCP - General Family Medicine 07/27/19 Mariola Kamara [employer] Heating ContractorManager Drug 02/09/23 documented as of this encounter
--- OUTSIDE RECORDS SUMMARY | 2024-05-13 01:55 | XMS_ITS | Clinical Summary ---
Author Organization [employer] Address [address] [facility] 7t [place] [address] Care Team Providers Care Wrapper Layer And Examiner Soft Work Name Role Phone Leatha Yip Primary Care Provider [phone] Allergies No known active allergies Medications ibuprofen 600 MG tabletIndication s:Acute pain of both knees,Pain in both lower extremities,Acut e midline low back pain without sciatica Take 1 tablet (600 mg) by mouth every 8 (eight) hours if needed for moderate pain or fever. 60 tablet 1 4 Active Levonorgestrel (Liletta, 52 MG,) 20.1 MCG/DAY intrauterine device 52 mg by Intrauterine route. 7 Active Tirzepatide-Weig ht Management (Zepbound) 2.5 MG/0.5ML solution auto-injectorInd ications:Class 1 obesity with body mass index (BMI) of 32.0 to 32.9 in adult, unspecified obesity type, unspecified whether serious comorbidity present,Chronic bilateral low back pain without sciatica Inject 0.5 mL (2.5 mg) under the skin 1 (one) time per week. Do not start before February 08, 2024. 2 mL 1 5 Active Active Problems Problem Noted Date Diagnosed Date History of abnormal cervical Papanicolaou smear 08/31/2023 Overview (08/31/2023): s/p YOVANNY 2017 Class 1 obesity with body ma ss index (BMI) of 32.0 to 32.9 in adult 08/31/2023 Abnormal Pap smear of cervix 05/10/2017 Backache 05/02/2012 Encounters Date Type Department Care Team Description 04/20/2024 Population Health Risk Score [facility] ([facility]) Department [address] [facility] [address] [place] [address] Provider, Population Health Generic from Last 3 Months Immunizations Name Administration Dates Next Due Hep B, adult 12/10/2010,04/30/2009,04/10/2007 Influenza, IIV3, injectable 12/10/2016, 6 Rubella 07/15/2007 Tdap 12/10/2016,09/04/2015 Family History Medical History Relation Name Comments Diabetes Other Hypertension Other Coronary artery disease Paternal Grandfather Relation Name Status Comments Other Paternal Grandfather Social History Tobacco Use Types Packs/Day Years Used Date Smoking Tobacco: Never Passive Smoke Exposure: Never Smokeless Tobacco: Never Tobacco Cessation:Counseling Given: Not Answered Housing Stability Answer Date Recorded What is your housing situation today? I have eufemia bailey 08/10/[address] you li ve. Do you have problems with any of the following? None of the above 08/10/2023 Food Insecurity Answer Date Recorded Within the past 12 months, y ou worried that your food would run out before you got money to buy more: Never True 08/10/2023 Within the past 12 months,th e food you bought just didn't last and you didn't have enough money to get more: Never True 04/2023 Transportation Answer Date Recorded In the past 12 months, has l ack of transportation kept you from medical appts, meetings, work or from getting things needed for daily living? No 08/10/2023 Utilities Answer Date Recorded In the past 12 months, has t he electric, gas, oil or water company threatened to shut off services in your home? No 08/10/2023 Internet Access Answer Date Recorded Internet Access Q1 Yes 10/10/2023 Internet Access Q2 Not on file 10/10/2023 Comments Unknown Sex and Gender Information Value Date Recorded Sex Assigned at Female 12/07/2021 10:20 AM EDT Legal Sex Female 10:20 AM EDT Gender Identity Female 12/07/2021 10:20 AM EDT Sexual Orientation Straight 12/07/2021 10 :20 AM EDT Last Filed Vital Signs Vital Sign Reading Time Taken Comments Blood Pressure 114/71 08/19/2023 10:02 AM EDT Pulse 101 08/19/2023 10:02 AM EDT Temperature - - Respiratory Rate 26 08/19/2023 10:02 AM EDT Oxygen Saturation 98% 08/19/2023 10:02 AM EDT Inhaled Oxygen Concentration - - Weight 107 kg (236 lb 3.2 oz) 08/19/2023 10:02 A M EDT Height 180.3 cm (5' 11 ) 08/19/2023 10:02 AM EDT Body Mass Index 32.94 08/19/2023 10:02 AM EDT Plan of Treatment Health Maintenance Due Date Last Done Comments Depression Screening 1987 Alcohol/Substance Use Screening 1999 Family Planning (PISQ) 2002 Pap Smear 01/21/2008 Cervical Cancer Screening 2017 HPV/Cotest 2017 COVID-19 Vaccine (2023-2 5 season) 2023 10/15/2020, 09/02/2020 Influenza Vaccine (#1) 2023 7, 11/13/2015 SDOH Screening 08/09/2024 08/10/2023 Tobacco Screening 08/18/2024 08/19/2023 DTaP/Tdap/Td Vaccines (3 - T d or Tdap) 12/10/2026 12/10/2016, 09/04/2015 Lipid Panel 08/29/2028 08/30/2023 Zoster Vaccines (1 of 2) 2037 RSV Patients and Patients Aged 60 years or older (1 - 1-dose 75+ series) 2062 Hepatitis B Vaccines Completed 12/10/2010, 04/30/2009, 04/10/2007 Hepatitis C Screening Completed 06/20/2019 HIV Screening Completed 08/30/2023 HIB Vaccines Aged Out No longer eligi ble based on patient's age to complete this topic HPV Vaccines Aged Out No longer eligi ble based on patient's age to complete this topic Hepatitis A Vaccines Aged Out No long er eligible based on patient's age to complete this topic IPV Vaccines Aged Out No longer eligi ble based on patient's age to complete this topic Meningococcal Vaccine Aged Out No alexis jackeline eligible based on patient's age to complete this topic Pneumococcal Vaccine: Pediatrics (0 to 5 Years) and At-Risk Patients (6 to 49) Years) Aged Out No longer eligible b ased on patient's age to complete this topic RSV under 20 months Aged Out No longe r eligible based on patient's age to complete this topic Rotavirus Vaccines Aged Out No longer eligible based on patient's age to complete this topic Procedures Procedure Name Priority Date/Time Associated Diagnosis Comments HIV 1/2 ANTIGEN/ANTIBODY, FOURTH GENERATION W/RFL Routine 08/30/2023 10:23 AM EDT Healthcare maintenance LIPID PANEL, STANDARD Routine 08/30/2023 10:23 AM EDT Healthcare maintenance ZZZ HISTORICAL HEPATITIS A,B,C PROFILE Routine 06/20/2019 9:05 AM EDT from Last 3 Months or Most Recently Relevant to Health Maintenance Results * HIV-1/2 Antigen and Antibodies, Fourth Generation, with Reflexes (08/30/2023 10:23 AM EDT) HIV AB/AG Nonreactive Nonreactive [facility] Comment:HIV-1 p24 Ag and/or HIV-1/HIV-2 Ab not detected.A test result that is nonreactive does not exclude thepossibility of exposure to or infection with HIV-1 and/orHIV-2. Nonreactive results in this assay for individualswith prior exposure to HIV-1 and/or HIV-2 may be due toantigen and antibody levels that are below the limit ofdetection of this assay.The [facility] HIV Ag/Ab Combo assay result andsupplemental assay results should be interpreted inconjunction with the patient's clinical presentation,history and other laboratory results. If the results areinconsistent with clinical evidence, additional testing issuggested to confirm the result. Blood Venous blood specimen / Unknown 08/30/2023 10:23 AM EDT 08/30/2023 11:14 AM EDT us Leatha BONILLA LAB BLOOD ORDERABLES Final Resul t [facility] [address] [place] [phone] * (ABNORMAL) Lipid Panel, Standard (08/30/2023 10:23 AM EDT) Triglycerides 44 <150 mg/dL [facility] Comment:Desirable Triglyceri de: less than 150 mg/dLBorderline High Triglyceride 150-199 mg/dLHigh Triglyceride: 200-499 mg/dLVery High Triglyceride: greater than or equal to 5OO mg/dL Cholesterol 164 <200 mg/dL [facility] Comment:Desirable Cholestero l: less than 200 mg/dLBorderline High Cholesterol: 200-239 mg/dLHigh Cholesterol: greater than 239 mg/dL LDL Cholesterol Calculated 103(H) <100 mg/dL [facility] Comment:Desirable LDL: less than 100 mg/dLNear Optimal/Above Optimal LDL: 110- 129 mg/dLBorderline High LDL: 130-159 mg/dLHigh LDL: 160-189 mg/dLVery High LDL: greater than or equal to 190 mg/dL HDL Cholesterol 53 >40 mg/dL [facility] Comment:Desirable HDL: great er than 40 mg/dL Note: This HDL assay may give artificially low results in patients with liver disease. Blood Venous blood specimen / Unknown 08/30/2023 10:23 AM EDT 08/30/2023 11:14 AM EDT [facility] LAB BLOOD ORDERABLES Final Resul t Performing Organization Address City/[facility]/ZIP Co de Phone Number [facility] [address] [place] [phone] * HEPATITIS A,B,C PROFILE (06/20/2019 9:05 AM EDT) HEPATITIS B CORE ANTIBODY NONREACTIVE NONREACTIVE [facility] HEPATITIS B INTERPRETATION SEE NOTE [facility] Comment:REFER TO THE ANTI-HB S COMMENT. HEPATITIS B SURFACE ANTIGEN NEGATIVE NEGATIVE [facility] HEPATITIS C ANTIBODY NONREACTIVE NONREACTIVE [facility] Comment: Antibodies to HCV not detected; does not exclude early acute HCV infection. 06/20/2019 9:05 AM EDT Historical Provider MD HISTORICAL/NON ORDERABLE LABS Final Result [facility] [address] from Last 3 Months or Most Recently Relevant to Health Maintenance [place] [address] [place] [address] C3 Care Teams Wrapper Layer And Examiner Soft Work Relationship Specialty Start Date End Date Leatha Yip ANP [address] [place] [phone] PCP - General Family Medicine 07/27/19 Mariola Kamara Dedicated Truck DriverResidential Real Estate Agent 02/09/23
--- NOTE | 2024-05-13 02:03 | ED_ITS ---
HPI - General Adult General Chief complaint: Upper Respiratory Symptoms Stated complaint: Flu like Time Seen by Provider: 05/13/24 02:05 Source: patient Limitations: no limitations History of Present Illness ED Provider: Kristen Augustin PA-C HPI narrative: 39-year-old female with a history of IBS, obesity, who presents with a cough and cold symptoms x3 days. Associated productive cough, nasal congestion with f kassandra at home. Related Data Previous Rx's ?Medication ?Instructions ?Recorded amoxicillin 500 mg tablet 1,000 mg (2 x 500 mg) PO Q8H #59 05/13/24 tabs azithromycin 250 mg tablet 250 mg PO DAILY 4 days #4 tabs 05/13/24 Allergies Allergy/AdvReac Type Severity Reaction Status Date / Time No Known Allergies Allergy Verified 05/13/24 01:36 Review of Systems Review of Systems: Yes all other systems are reviewed and are negative Constitutional: Constitutional: Reports fatigue, Reports fever(s) and Reports malaise ENT: Reports nasal congestion Cardiovascular: Cardiovascular: Denies chest pain Respiratory: Respiratory: Reports chest congestion and Reports cough Endocrine: Endocrine: Reports fatigue PMFSH Past Medical History Attestation statement: The following information was validated with the patient. Medical History Gallstones Hepatic steatosis IBS (irritable colon syndrome) Surgical History History of laparoscopic cholecystectomy Family History Family History Paternal Grandfather Diabetes Paternal Grandmother Diabetes Social History Social History Household Members: Spouse and Children Household Members Other:: ages of kids 3 from husbands prev. m.--17,16,12; 2 smaller: 3 and 4 yr old Alcohol intake: current Alcohol intake frequency: does not drink Alcohol type: beer, wine and hard liquor Patient Tobacco Use Status: Never used Tobacco Smoked in Last 30 Days: No Use of substances other than those prescribed or required for medical reasons: No Advance Directives: No Do you have a plan to hurt others: No Plan Current occupational status: employed Current occupation: Office Work Physical Exam ED Vital Signs: Vital Signs - 24 hr 04/06/25 01:36 05/13/24 03:01 Temperature 99.2 F 99.2 F Pulse Rate 86 Respiratory Rate 18 Blood Pressure 159/81 H Pulse Oximetry 100 Oxygen Delivery Method Room Air BMI result Body Mass Index 32.1 Const Other: Alert Orientation/consciousness: patient oriented x3 Resp Effort & Inspection: normal respiratory effort Cardio Other: Normal peripheral perfusion Skin Other: Warm dry no rash Neuro General: patient oriented x3, gait normal, no focal motor deficits and CN's II- XI intact bilaterally Psych Other: Cooperative Medications Administered Discontinued Medications Generic Name Dose Route Start Last Admin Trade Name Freq PRN Reason Stop Dose Admin Amoxicillin 1,000 mg 05/13/24 03:13 05/13/24 03:16 Amoxicillin 500 Mg Capsule PO 05/13/24 03:14 1,000 mg ONCE ONE Administration Azithromycin 500 mg 05/13/24 03:06 05/13/24 03:16 Azithromycin 500 Mg Tablet PO 05/13/24 03:07 500 mg ONCE ONE Administration Medical Decision Making Medical Decision Making MDM Narrative: 39-year-old female with a history of IBS, obesity, who presents with a cough and cold symptoms x3 days. Associated productive cough, nasal congestion with fevers at home. No relevant chronic issues History: Per patient I have considered the following differential diagnoses: Viral syndrome, pneumonia, bronchitis Plan: Viral panel and chest x-ray ordered from triage I have independently reviewed the following tests: Viral panel negative Chest x-ray:IMPRESSION: Left basilar opacity or infiltrate. We will treat for community-acquired pneumonia Lab Data Labs: Lab Results 05/13/24 Range/Units 01:39 Influenza Type A (PCR) NEGATIVE (Negative) Influenza Type B (PCR) NEGATIVE (Negative) RSV RNA Qual (PCR) NEGATIVE (Negative) SARS-CoV-2 RNA (RT-PCR) NEGATIVE (Negative) Discharge Plan Discharge Clinical Impression: Community acquired pneumonia Patient Disposition: Home, Self-Care Instructions: Community Acquired Pneumonia (ED) Additional Instructions: The viral panel was negative. You were found to have early pneumonia on the chest x-ray. Take the amoxicillin in the azithromycin as directed. Follow up with your primary care provider as needed. You can use [id number] Zyrtec for your nasal congestion. Prescriptions: New amoxicillin 500 mg tablet 1,000 mg PO Q8H Qty: 59 0RF azithromycin 250 mg tablet 250 mg PO DAILY 4 Days Qty: 4 0RF Rx Instructions: start on day 2 of therapy Stand Alone Forms: Work/School Release Print Language: Bermudian
[2024-05-13 02:23] LABS: Influenza A PCR NEGATIVE (Negative); Influenza B PCR NEGATIVE (Negative); Resp Syncy Virus RNA Qual PCR NEGATIVE (Negative); SARS COV2 PCR INHOUSE NEGATIVE (Negative)
[2024-05-13 03:01] VITALS: TEMP 37.3
[2024-05-13] MEDS: Amoxicillin 500 MG CAPSULE 1000 MG PO (03:16)
[2024-05-13] MEDS: Azithromycin 500 MG TABLET PO (03:16)
[2024-05-13 03:38] VITALS: BP 159/81; PULSE 86; RESP 18; TEMP 37.3; O2SAT 100
== END 2024-05-13 03:39 | disposition home or self-care (01) ==
PROVIDERS: Emergency Provider Emergency Medicine
DX: J18.9 Pneumonia, unspecified organism (principal); R05.9 Cough, unspecified; Z03.818 Encounter for observation for suspected exposure to other biological agents ruled out
CPT/HCPCS: 0241U; 71045; 99283

== ENCOUNTER → 2024-05-13 02:03 | Outpatient (BNV) | payer MEDICAID, SELFPAY | PROVIDERS: Emergency Provider Emergency Medicine; Visit Provider General Practice | DX: R05.9 Cough, unspecified (principal) | CPT/HCPCS: 71045 ==

== ENCOUNTER 2024-05-21 17:44 | Outpatient (REF) | payer MEDICAID, SELFPAY ==
--- OUTSIDE RECORDS SUMMARY | 2024-05-21 18:39 | XMS_ITS | Encounter Summary ---
Author Organization [employer] Address [address] [facility] [address] 7[address] [place] [address] Care Team Providers Care Human Services Supervisor Name Role Phone Leatha Yip Primary Care Provider [phone] Encounter Details Date Type Department Care Team (Latest Contact Info) Description 05/17/2024 Travel Social History Tobacco Use Types Packs/Day Years Used Date Smoking Tobacco: Never Passive Smoke Exposure: Never Smokeless Tobacco: Never Housing Stability Answer Date Recorded What is [...] t he electric, gas, oil or water [employer] threatened to shut off services in your [...] as of this encounter Plan of Treatment Upcoming Encounters Date Type Department Care Team (Late st Contact Info) Description 06/11/2024 11:30 AM EDT Procedure Visit [facility] [address] [place], [place] [phone] Cass Tirado CNM [address] [place], [place] [phone] documented as of this encounter Visit Diagnoses Not on filedocumented in this encounter Care Teams Human Services Supervisor Relationship Specialty Start Date End Date Leatha Yip ANP [address] [place], [place] [phone] PCP - General Family Medicine 07/27/19 Mariola Kamara Quenching Machine OperatorAdvertising Clerk 02/09/23 documented as of this encounter
--- OUTSIDE RECORDS SUMMARY | 2024-05-21 18:39 | XMS_ITS | Encounter Summary ---
Author Organization [employer] Address [address] [facility] [address] [place] [address] Care Team Providers Care Big Data Platform Architect Name Role Phone Leatha Yip IRENE Primary Care Provider [phone] Reason for Visit * Reason Onset Date Comments Chart prep 05/21/2024 Encounter Details Date Type Department Care Team (Late st Contact Info) Description 05/21/2024 Telephone [facility] [address] [place] [address] Gretchen Sarmiento MA Chart prep Social History Tobacco Use Types Packs/Day Years Used Date Smoking Tobacco: Never Passive Smoke Exposure: Never Smokeless Tobacco: Never Depression Answer Date Recorded Patient Health Questionnaire-9 Score 5 05/21/2024 Patient Health Questionnaire-9 Score 5 05/21/2024 Last PHQ-9: Questionnaire Data Not on file 0 05/21/2024 Housing Stability Answer Date Recorded What is [...] off services in your home? No 08/10/2023 Depression Answer Date Recorded Patient Health Questionnaire-2 Score 1 05/21/2024 Internet Access Answer Date Recorded Internet Access Q1 Yes 10/10/2023 Internet Access Q2 Not on file 10/10/2023 Comments Unknown Sex and Gender Information Value Date Recorded Sex Assigned at Female 12/07/2021 10:20 AM EDT Legal Sex Female 10:20 AM EDT Gender Identity Female 12/07/2021 10:20 AM EDT Sexual Orientation Straight 12/07/2021 10 :20 AM EDT documented as of this encounter Miscellaneous Notes * Telephone Encounter - Gretchen Sarmiento MA - 05/21/2024 10:29 AM EDT Chart Prep Labs: done Images: not applicable Vaccines due: Covid Due Referrals: Not Applicable Screenings: PAP Overdue care gaps: Sbirt, PQ9, GAD7, and Disability documented in this encounter Plan of Treatment Upcoming Encounters Date Type Department Care Team (Late st Contact Info) Description 06/11/2024 11:30 AM EDT Procedure Visit [facility] [address] [place] [address] Cass Tirado CNM [address] [place] [address] documented as of this encounter Visit Diagnoses Not on filedocumented in this encounter Additional Health Concerns Assessment Noted Time PHQ-9 Depression Total Score: 5 05/22/19 25 12:29 PM EDT documented as of this encounter Care Teams Big Data Platform Architect Relationship Specialty Start Date End Date Leatha Yip ANP [address] [place] [address] PCP - General Family Medicine 07/27/19 Mariola Kamara Director Of MediaLadder Operator 02/09/23 documented as of this encounter
--- OUTSIDE RECORDS SUMMARY | 2024-05-21 18:39 | XMS_ITS | Encounter Summary ---
Author Organization [employer] Address [address] [facility] [address] [facility] [address] [place] [address] Care Team Providers Care Dental Intern Name Role Phone Leatha Yip Primary Care Provider [phone] Encounter Details Date Type Department Care Team (Latest Contact Info) Description 05/21/2024 Travel Social History Tobacco Use Types Packs/Day Years Used Date Smoking Tobacco: Never Passive Smoke Exposure: Never Smokeless Tobacco: Never Depression Answer Date Recorded Patient Health Questionnaire-9 Score 5 05/21/2024 Patient Health Questionnaire-9 Score 5 05/21/2024 Last PHQ-9: Questionnaire Data Not on file 0 05/21/2024 Housing Stability Answer Date Recorded What is your housing situation today? I have eufemiapippa bailey 08/10/[address] you [...] Description 06/11/2024 11:30 AM EDT Procedure Visit [facility] [address] [place] [address] Cass Tirado CNM [address] [place] [address] documented as of this encounter Visit Diagnoses Not on filedocumented in this encounter Additional Health Concerns Assessment Noted Time PHQ-9 Depression Total Score: 5 05/22/19 25 12:29 PM EDT documented as of this encounter Care Teams Dental Intern Relationship Specialty Start Date End Date Leatha Yip ANP [address] [place] [address] PCP - General Family Medicine 07/27/19 Marioal Kamara Mine BossMachine Baster 02/09/23 documented as of this encounter
--- OUTSIDE RECORDS SUMMARY | 2024-05-21 18:39 | XMS_ITS | Encounter Summary ---
Author Organization [employer] Address [address] [facility] 7t [place] [address] Care Team Providers Care Taffy Candy Maker Name Role Phone Leatha Yip ANP Primary Care Provider [phone] Encounter Details Date Type Department Care Team (Late st Contact Info) Description 05/21/2024 11:30 AM EDT Office Visit [facility] [address] [place] [address] Leatha Yip ANP [address] [place] [address] Pneumonia of left lower lobe due to infectious organism (Primary Dx); Shortness of breath; Class 1 obesity with body mass index (BMI) of 31.0 to 31.9 in adult, unspecified obesity type, unspecified whether serious comorbidity present; HOUSER (nonalcoholic steatohepatitis); Class 1 obesity with serious comorbidity and body mass index (BMI) of 32.0 to 32.9 in adult, unspecified obesity type; Chronic bilateral low back pain without sciatica; Vaginal discharge Social History Tobacco Use Types Packs/Day Years Used Date Smoking Tobacco: Never Passive Smoke Exposure: Never Smokeless Tobacco: Never Tobacco Cessation:Counseling Given: Not Answered Depression Answer Date Recorded Patient Health Questionnaire-9 [...] AM EDT documented as of this encounter Last Filed Vital Signs Vital Sign Reading Time Taken Comments Blood Pressure 105/65 05/21/2024 11:43 AM EDT Pulse 79 05/21/2024 11:43 AM EDT Temperature 36.7 ??C (98 ??F) 05/21/2024 11:43 AM EDT Respiratory Rate 14 05/21/2024 11:43 AM EDT Oxygen Saturation 97% 05/21/2024 11:43 AM EDT Inhaled Oxygen Concentration - - Weight 103 kg (227 lb 9.6 oz) 05/21/2024 11:43 A M EDT Height - - Body Mass Index 31.74 08/19/2023 10:02 AM EDT documented in this encounter Progress Notes * IRENE eDlacruz - 05/21/2024 11:30 AM EDT Subjective Patient ID: Penny Talbert is a 39 y.o. female who presents for f/u PNA. HPI Here today for ED follow-up for LLL PNA 05/13/24. Tx'd with amoxicillin TID for 10d and z-heidy. Still w/ cough, mildly productive, and ongoing SOB, chest tightness. No fever/chills. Today will be last dose of amoxicillin. Will rx albuterol for prn use. If she does not continue to improve, plan will be to consider switch to abx therapy vs check chest CT. Also having white vaginal discharge and vaginal itching since abx therapy. Also w/ white skin lesion on labia that is also itchy. Here today also for follow-up/weight check. Was taking wegovy without any issue. Did not start zepbound - would like to but needs refill. BMI Readings from Last 3 Encounters: 05/21/24 31.74 kg/m?? 08/19/23 32.94 kg/m?? 09/07/21 32.44 kg/m?? Wt Readings from Last 3 Encounters: 05/21/24 227 lb 9.6 oz (103 kg) 08/19/23 236 lb 3.2 oz (107 kg) 09/07/21 226 lb 9.6 oz (103 kg) Understands that weight loss medications must be used as part of a comprehensive lifestyle plan that incorporates daily exercise, adequate protein intake, decreased soda and sugary beverage consumption, decreased caloric intake. Penny Talbert is bilingual Uzbek/Ukrainian. Review of Systems Constitutional: Negative for chills and fever. HENT: Negative for sore throat. Respiratory: Positive for cough and shortness of breath. Negative for wheezing. Cardiovascular: Negative for chest pain, palpitations and leg swelling. Gastrointestinal: Negative for constipation and diarrhea. Endocrine: Negative for polydipsia, polyphagia and polyuria. Genitourinary: Negative for dysuria. Objective BP 105/65 (BP Location: Left arm, Patient Position: Sitting, BP Cuff Size: Adult long) Pulse 79 Temp 98 ??F (36.7 ??C) (Temporal) Resp 14 Wt 227 lb 9.6 oz (103 kg) SpO2 97% BMI 31.74 kg/m?? Physical Exam Constitutional: General: She is not in acute distress. Appearance: Normal appearance. She is not ill-appearing. HENT: Head: Normocephalic and atraumatic. Eyes: Extraocular Movements: Extraocular movements intact. Cardiovascular: Rate and Rhythm: Normal rate and regular rhythm. Pulmonary: Effort: Pulmonary effort is normal. No tachypnea, accessory muscle usage, respiratory distress or retractions. Breath sounds: Examination of the right-lower field reveals decreased breath sounds. Decreased breath sounds present. No wheezing or rhonchi. Comments: +Junky cough Neurological: Mental Status: She is alert and oriented to person, place, and time. Psychiatric: Mood and Affect: Mood normal. Behavior: Behavior normal. Assessment/Plan Diagnoses and all orders for this visit: Pneumonia of left lower lobe due to infectious organism At this time no change to treatment plan. Too early for repeat chest x-ray and symptoms are improving though slowly. Sent albuterol for as needed use every 6 hours and if not continuing to improve will consider need for chest CT and alternate antibiotic such as fluoroquinolone. Shortness of breath - albuterol 108 (90 Base) MCG/ACT inhaler; Inhale 2 puffs every 6 (six) hours if needed for shortness of breath. Class 1 obesity with body mass index (BMI) of 31.0 to 31.9 in adult, unspecified obesity type, unspecified whether serious comorbidity present Has fatty liver and chronic low back pain. Previously tolerated Wegovy well but stopped when insurance switched formulary to Zepbound. she is interested in balloon procedure for weight loss but will use Zepbound first. She has a lot of anxiety that she flaco using food which we discussed would not necessarily change after bariatric procedure and that we need to treat anxiety and coping mechanisms first. She declines referral for therapy at this time. HOUSER (nonalcoholic steatohepatitis) - Comprehensive Metabolic Panel; Future - Hemoglobin A1c; Future - Lipid Panel, Standard; Future Class 1 obesity with serious comorbidity and body mass index (BMI) of 32.0 to 32.9 in adult, unspecified obesity type - Tirzepatide-Weight Management (Zepbound) 2.5 MG/0.5ML solution auto-injector; Inject 0.5 mL (2.5 mg) under the skin 1 (one) time per week. Chronic bilateral low back pain without sciatica Vaginal discharge Suspect Gaby after antibiotic use. Have also scheduled with CNM for skin check of labial lesion. - fluconazole (Diflucan) 150 MG tablet; Take 1 tablet (150 mg) by mouth 1 (one) time for 1 dose. Take 1 tablet once now and repeat in 3 days if not improving - Bacterial Vaginosis Panel documented in this encounter Plan of Treatment Upcoming Encounters Date Type Department Care Team (Late st Contact Info) Description 06/11/2024 11:30 AM EDT Procedure Visit [facility] [address] [place] [address] Cass Tirado CNM [address] [place] [address] Scheduled Orders Name Type Priority Associated Diagnoses Orde r Schedule Comprehensive Metabolic Panel Lab Routine HOUSER (nonalcoholic steatohepatitis) Expected: 05/21/2024 (Approximate), Expires: 05/21/2025 Hemoglobin A1c Lab Routine HOUSER (nonalcoholic steatohepatitis) Expected: 05/21/2024 (Approximate), Expires: 05/21/2025 Lipid Panel, Standard Lab Routine HOUSER (nonalcoholic steatohepatitis) Expected: 05/21/2024 (Approximate), Expires: 05/21/2025 Bacterial Vaginosis Panel Microbiology Routine Vaginal discharge Ordered: 05/21/2024 documented as of this encounter Visit Diagnoses Diagnosis Pneumonia of left lower lobe due to infectious organism- Primary Shortness of breath Class 1 obesity with body mass index (BMI) of 31.0 to 31.9 in adult, unspecified obesity type, unspecified whether serious comorbidity present HOUSER (nonalcoholic steatohepatitis) Other chronic nonalcoholic liver disease Class 1 obesity with serious comorbidity and body mass index (BMI) of 32.0 to 32.9 in adult, unspecified obesity type Chronic bilateral low back pain without sciatica Vaginal discharge Leukorrhea, not specified as infective documented in this encounter Additional Health Concerns Assessment Noted Time PHQ-9 Depression Total Score: 5 05/22/19 25 12:29 PM EDT documented as of this encounter Care Teams Taffy Candy Maker Relationship Specialty Start Date End Date Leatha Yip ANP [address] [place] [address] PCP - General Family Medicine 07/27/19 Mariola Kamara Circulation WorkerTv Technician 02/09/23 documented as of this encounter
--- OUTSIDE RECORDS SUMMARY | 2024-05-21 18:39 | XMS_ITS | Encounter Summary ---
Author Organization [employer] Address [address] [facility] [address] [place] [address] Care Team Providers Care Rn Cardiac Rehab Name Role Phone Leatha Yip Primary Care Provider [phone] Encounter Details Date Type Department Care Team (Latest Contact Info) Description 08/21/2018 Abstract [facility] CONVERSIONS Dental, Provider, DDS Social History Tobacco [...] Description 06/11/2024 11:30 AM EDT Procedure Visit [facility] [address] [place] [address] Cass Tirado CNM [address] [place] [address] documented as of this encounter Visit Diagnoses Not on filedocumented in this encounter Care Teams Rn Cardiac Rehab Relationship Specialty Start Date End Date Leatha Yip ANP [address] [place] [address] PCP - General Family Medicine 07/27/19 Mariola Kamara Button BroacherScrubbing Machine Operator 02/09/23 documented as of this encounter
--- OUTSIDE RECORDS SUMMARY | 2024-05-21 18:40 | XMS_ITS | Clinical Summary ---
Author Organization [employer] Address [address] [facility] 7[address] [place] [address] Care Team Providers Care Drama Therapist Name Role Phone Leatha Yip Primary Care Provider [phone] Allergies No known active allergies Medications ibuprofen 600 MG tabletIndicatio ns:Acute pain of both knees,Pain in both lower extremities,Acu te midline low back pain without sciatica Take 1 tablet (600 mg) by mouth every 8 (eight) hours if needed for moderate pain or fever. 60 tablet 1 024 Active Levonorgestrel (Liletta, 52 MG,) 20.1 MCG/DAY intrauterine device 52 mg by Intrauterine route. 017 Active albuterol 108 (90 Base) MCG/ACT inhalerIndicati ons:Shortness of breath Inhale 2 puffs every 6 (six) hours if needed for shortness of breath. 18 g 025 2024 Active Tirzepatide-Don ght Management (Zepbound) 2.5 MG/0.5ML solution auto-injectorIn dications:Class 1 obesity with serious comorbidity and body mass index (BMI) of 32.0 to 32.9 in adult, unspecified obesity type Inject 0.5 mL (2.5 mg) under the skin 1 (one) time per week. 2 mL 025 Active fluconazole (Diflucan) 150 MG tabletIndicatio ns:Vaginal discharge Take 1 tablet (150 mg) by mouth 1 (one) time for 1 dose. Take 1 tablet once now and repeat in 3 days if not improving 2 tablet 025 2024 Active Tirzepatide-Dno ght Management (Zepbound) 2.5 MG/0.5ML solution auto-injectorIn dications:Class 1 obesity with body mass index (BMI) of 32.0 to 32.9 in adult, unspecified obesity type, unspecified whether serious comorbidity present,Chronic bilateral low back pain without sciatica Inject 0.5 mL (2.5 mg) under the skin 1 (one) time per week. Do not start before February 08, 2024. 2 mL 1 025 2024 Discontinued(R eorder (will not trigger notification to Pharmacy)) Active Problems Problem Noted Date Diagnosed Date History of abnormal cervical Papanicolaou smear 08/31/2023 Overview (08/31/2023): s/p YOVANNY 2017 Class 1 obesity with body ma ss index (BMI) of 32.0 to 32.9 in adult 08/31/2023 Abnormal Pap smear of cervix 05/10/2017 Backache 05/02/2012 Encounters Date Type Department Care Team Description 05/21/2024 11:30 AM EDT Office Visit [facility] [address] [place] [address] Leatha Yip ANP Pneumonia of left lower lobe due to [...] low back pain without sciatica; Vaginal discharge 05/21/2024 Travel 05/21/2024 Telephone [facility] [address] [place] [address] Gretchen Sarmiento MA Chart prep 05/17/2024 Travel 05/17/[address] [facility] [address] [place], [place] [phone] Leanna Douglas, DRUG SAFETY SCIENTIST Follow-up 05/13/2024 Orders Only [facility] External Provider, [facility] 04/20/2024 Population Health Risk Score [facility] [address] [place] [id number] Provider, Population Health Generic from Last [...] oz) 05/21/2024 11:43 A M EDT Height 180.3 cm (5' 11 ) 08/19/2023 10:02 AM EDT Body Mass Index 31.74 08/19/2023 10:02 AM EDT Plan of Treatment Upcoming Encounters Date Type Department Care Team (Late st Contact Info) Description 06/11/2024 11:30 AM EDT Procedure Visit [facility] [address] [place], [place] [phone] Cass Tirado, ARELY [address] [place] [address] Health Maintenance Due Date Last Done Comments Alcohol/Substance Use Screening 1999 Family Planning (PISQ) 2002 Hepatitis A Vaccines (1 of 2 - Risk 2-dose series) 2006 Pap Smear 01/21/2008 Cervical Cancer Screening 2017 HPV/Cotest 2017 COVID-19 Vaccine ( - 2023-2 5 season) 2023 10/15/2020, 09/02/2020 Influenza Vaccine (#1) 2023 7, 11/13/2015 SDOH Screening 08/09/2024 08/10/2023 Depression Screening 05/21/2025 05/21/2024, 05/21/2024 Tobacco Screening 05/21/2025 05/21/2024 DTaP/Tdap/Td Vaccines (3 - T d or [...] Procedure Name Priority Date/Time Associated Diagnosis Comments XR CHEST 1 VIEW Routine 05/13/2024 2:46 AM EDT SARS COV2/INFLUENZA A/B AND RSV RNA QL NAAT Routine 05/13/2024 1:39 AM EDT Class 1 obesity with body mass index (BMI) of 32.0 to 32.9 in adult, unspecified obesity type, unspecified whether serious comorbidity present HIV 1/2 ANTIGEN/ANTIBODY, FOURTH GENERATION W/RFL Routine 08/30/2023 10:23 AM EDT Healthcare maintenance LIPID PANEL, STANDARD Routine 08/30/2023 10:23 AM EDT Healthcare maintenance ZZZ HISTORICAL HEPATITIS A,B,C PROFILE Routine 06/20/2019 9:05 AM EDT from Last 3 Months or Most Recently Relevant to Health Maintenance Results * XR Chest 1 View (05/13/2024 2:46 AM EDT) Anatomical Region Laterality Modality Chest Radiographic Sarah ging 05/13/2024 2:46 AM EDT Narrative 05/13/2024 2:48 AM EDT ? [facility] ?[address] ?[place] [address] ?XRay Report ? Signed ? Patient: Talbert,Erelyd ?MR#: [id number] ?? 5 ? : 1985 ?Acct:[id number] ? Age/Sex: 39 / F ?ADM Date: 05/13/24 ? Loc: HO.ED ? Attending Dr: ? Ordering Physician: Kristen Augustin ?? Date of Service: 05/13/24 ?? Procedure(s): XR chest 1V ?? Accession Number(s): [id number] ? cc: Kristen Augustin; [facility] ? CLINICAL HISTORY: cough ? 1 view chest x-ray ? Comparison: None ? Findings: ?? Left basilar opacity or infiltrate. ?? Normal size heart. ?? No acute fracture. ? IMPRESSION: ?? Left basilar opacity or infiltrate. ? This document has been electronically signed by: Rico Clark MD, ?? PHD on 05/13/2024 02:46:33 ? Dictated By: ?Rico Clark MD ? Signed By: ?<Electronically signed by Rico Clark MD in OV> ? 05/13/24246 ? DD/ 5 ? TD/TT: 05/13/24245 ? Hr Internship: ? Procedure Note Loan, Al - 05/13/2024 [place] [address] XRay Report Signed Patient: Vicky Tablert#: [id number] 5 : 1985Acct:[id number] Age/Sex: 39 / FADM Date: 05/13/24 Loc: HO.ED Attending Dr: Ordering Physician: Kristen Augustin Date of Service: 05/13/24 Procedure(s): XR chest 1V Accession Number(s): [id number] cc: Kristen Augustin; [facility] CLINICAL HISTORY: cough 1 view chest x-ray Comparison: None Findings: Left basilar opacity or infiltrate. Normal size heart. No acute fracture. IMPRESSION: Left basilar opacity or infiltrate. This document has been electronically signed by: Rico Clark MD, PHD on 05/13/2024 02:46:33 Dictated By: Rico Clark MD Signed By: <Electronically signed by Rico Clark MD in OV> 05/13/24246 DD/ 5 TD/TT: 05/13/24245 Hr Internship: [facility] External Provider IMG XR PROCEDURES Final Result * SARS-CoV-2 RNA, Influenza A/B, and RSV RNA, Ql NAAT (05/13/2024 1:39 AM EDT) Influenza A PCR NEGATIVE Negative [facility] Influenza B PCR NEGATIVE Negative [facility] Resp Syncy Virus RNA Qual PCR NEGATIVE Negative [facility] SARS COV2 PCR NEGATIVE Negative [facility] Comment:All test results mus t be correlated with clinical findings.Negative results do not preclude SARS-CoV2, influenza Avirus, influenza B virus and/or RSV infectionand should not be used as the sole basis for treatment orother patient management decisions. Negative results must becombined with clinical observations, patient history, andepidemiological information.This test has not been evaluated for monitoring treatment ofinfection.This test has been authorized by the FDA under an EmergencyUse Authorization (EUA) for use by authorized laboratories.Testing performed on the [employer] GeneXpert utilizingreal-time RT-PCR.All SARS CoV2 and positive influenza A/B results arereported to [facility]. 05/13/2024 1:39 AM EDT 05/13/2024 1:44 AM EDT Generic External Data Provider LAB MICROBIOLOGY - GENERAL ORDERABLES Final Result [facility] [address] [place] [address] [phone] * HIV-1/2 Antigen and Antibodies, Fourth Generation, with Reflexes (08/30/2023 10:23 AM EDT) HIV AB/AG Nonreactive Nonreactive [facility] Comment:HIV-1 p24 Ag and/or HIV-1/HIV-2 Ab not detected.A test result that is nonreactive does not exclude thepossibility of exposure to or infection with HIV-1 and/orHIV-2. Nonreactive results in this assay for individualswith prior exposure to HIV-1 and/or HIV-2 may be due toantigen and antibody levels that are below the limit ofdetection of this assay.The [employer] HIV Ag/Ab Combo assay result andsupplemental assay results should be interpreted inconjunction with the patient's clinical presentation,history and other laboratory results. If the results areinconsistent with clinical evidence, additional testing issuggested to confirm the result. Blood Venous blood specimen / Unknown 08/30/2023 10:23 AM EDT 08/30/2023 11:14 AM EDT [facility] LAB BLOOD ORDERABLES Final Resul t [facility] [address] [place] [phone] * (ABNORMAL) Lipid Panel, Standard (08/30/2023 10:23 AM EDT) Triglycerides 44 <150 mg/dL [facility] Comment:Desirable Triglyceri de: less than 150 mg/dLBorderline High Triglyceride 150-199 mg/dLHigh Triglyceride: 200-499 mg/dLVery High Triglyceride: greater than or equal to 5OO mg/dL Cholesterol 164 <200 mg/dL [facility] Comment:Desirable Cholestero l: less than 200 mg/dLBorderline High Cholesterol: 200-239 mg/dLHigh Cholesterol: greater than 239 mg/dL LDL Cholesterol Calculated 103(H) <100 mg/dL [facility] Comment:Desirable LDL: less than 100 mg/dLNear Optimal/Above Optimal LDL: 110- 129 mg/dLBorderline High LDL: 130-159 mg/dLHigh LDL: 160-189 mg/dLVery High LDL: greater than or equal to 190 mg/dL HDL Cholesterol 53 >40 mg/dL [facility] Comment:Desirable HDL: great er than 40 mg/dL Note: This HDL assay may give artificially low results in patients with liver disease. Blood Venous blood specimen / Unknown 08/30/2023 10:23 AM EDT 08/30/2023 11:14 AM EDT us Leatha [facility] LAB BLOOD ORDERABLES Final Resul t [facility] [address] [place] [address] [phone] * HEPATITIS A,B,C PROFILE (06/20/2019 9:05 [...] Provider MD HISTORICAL/NON ORDERABLE LABS Final Result [facility] [address] from Last 3 Months or Most Recently Relevant to Health Maintenance Insurance [id number] [place], [place] [facility] [place] Care Teams Drama Therapist Relationship Specialty Start Date End Date Leatha Yip ANP [address] [place] [address] PCP - General Family Medicine 07/27/19 Mariola Kamara Wildlife Conservation ProfessorAgricultural Equipment Operator 02/09/23
--- OUTSIDE RECORDS SUMMARY | 2024-05-21 18:40 | XMS_ITS | Encounter Summary ---
Author Organization [email or web address] Address [address] [facility] [address] [place] [address] Care Team Providers Care Tester Waste Disposal Leakage Name Role Phone Leatha Yip IRENE Primary Care Provider [phone] Reason for Visit * Reason Onset Date Comments ER Follow-up 05/17/2024 Encounter Details Date Type Department Care Team ([facility] st Contact Info) Description 05/17/2024 Telephone [facility] [address] [place] [address] Leanna Douglas, RN [address] [place] [address] ER Follow-up Social History Tobacco Use Types Packs/Day Years [...] encounter Miscellaneous Notes * Telephone Encounter - Leanna Douglas RN - 05/17/2024 10:08 AM EDT Pt seen at [facility] ED 05/13 for Dx: community acquired pneumonia. Telephone call placed to pt to status check. Pt reports is taking Abx as prescribed but has nly slightly improved. Reports ongoing cough and mild- moderate SOB, no fever. Busy today and has another appt tomorrow, requesting appt Tuesday. Booked with PCP for 05/21/24 but strongly encouraged if SOB worsens, she feels like she can't breathe, develops fever go back to the ED. Informed of [facility] hours of operation and NTTS. Pt verbalized understanding and denied having any further questions or concerns at this time. * Telephone Encounter - Leanna Douglas RN - 05/17/2024 10:01 AM EDT ----- Message from Leatha Yip sent at 05/14/2024 11:05 AM EDT ----- Please reach patient later this week for status check and schedule RV as needed per your assessment documented in this encounter Plan of Treatment Upcoming Encounters Date Type Department Care Team (Late st Contact Info) Description 06/11/2024 11:30 AM EDT Procedure Visit [facility] [address] [place], [place] [phone] Cass Tirado CNM [address] [place] [address] documented as of this encounter Visit Diagnoses Not on filedocumented in this encounter Care Teams Tester Waste Disposal Leakage Relationship Specialty Start Date End Date Leatha Yip ANP [address] [place] [address] PCP - General Family Medicine 07/27/19 Mariola Kamara Tool Planer Set Up OperatorDrying Tunnel Operator 02/09/23 documented as of this encounter
[2024-05-21 21:53] LABS: Bacterial Vaginosis PCR NEGATIVE (Negative); Candida Group PCR DETECTED (Not Detect); Candida glab krusei PCR NOT DETECTED (Not Detect); Trichomonas vaginalis PCR NOT DETECTED (Not Detect)
== END 2024-05-21 17:45 | disposition home or self-care (01) ==
LOC: HO.HHCLNP 17:44
PROVIDERS: Visit Provider Nurse Practitioner Primary Care
DX: N89.8 Other specified noninflammatory disorders of vagina (principal)
CPT/HCPCS: 81515

== ENCOUNTER 2024-11-07 09:17 | Outpatient (REF) | payer MEDICAID, SELFPAY ==
--- OUTSIDE RECORDS SUMMARY | 2024-11-06 09:30 | XMS_ITS | Encounter Summary ---
Author Organization [employer] Address [address] [facility] 7t [place] [address] Care Team Providers Care Floorworker Distributor Name Role Phone Leatha Yip Primary Care Provider [phone] Reason for Visit * Reason Comments Follow-up Weight check Encounter Details Date Type Department Care Team ([facility] st Contact Info) Description 11/06/2024 9:30 AM EDT Office Visit [facility] [address] [place] [address] Leatha Yip ANP [address] [place] [address] Class 1 obesity with serious comorbidity and body mass index (BMI) of 33.0 to 33.9 in adult, unspecified obesity type (Primary Dx); Shortness of breath; Anxiety; Stress; HOUSER (nonalcoholic steatohepatitis); Mild intermittent asthma without complication Social History Tobacco Use Types Packs/Day Years Used Date Smoking Tobacco: Never Passive Smoke Exposure: Never Smokeless Tobacco: Never Tobacco Cessation:Counseling Given: Not Answered Depression Answer Date Recorded Patient Health Questionnaire-9 Score 4 11/06/2024 Patient Health Questionnaire-9 Score 4 11/06/2024 Last PHQ-9: Questionnaire Data Not on file 0 11/06/2024 Housing Stability Answer Date Recorded What is your housing situation today? I have eufemia bailey 11/06/[address] you li ve. Do you have problems with any of the following? No or not working smoke detectors 11/06/2024 Food Insecurity Answer Date Recorded Within the past 12 months, y ou worried that your food would run out before you got money to buy more: Sometimes True 2024 Within the past 12 months,th e food you bought just didn't last and you didn't have enough money to get more: Often true 11/06/2024 Transportation Answer Date Recorded In the past 12 months, has l ack of transportation kept you from medical appts, meetings, work or from getting things needed for daily living? No 11/06/2024 Utilities Answer Date Recorded In the past 12 months, has t he electric, gas, oil or water company threatened to shut off services in your home? No 11/06/2024 Depression Answer Date Recorded Patient Health Questionnaire-2 Score 2 11/06/2024 Internet Access Answer Date Recorded Internet Access Q1 Yes 11/06/2024 Internet Access Q2 Not on file 11/06/2024 Comments Unknown Sex and Gender Information Value Date Recorded Sex Assigned at Female 12/07/2021 10:20 AM EDT Legal Sex Female 10:20 AM EDT Gender Identity Female 12/07/2021 10:20 AM EDT Sexual Orientation Straight 12/07/2021 10 :20 AM EDT documented as of this encounter Last Filed Vital Signs Vital Sign Reading Time Taken Comments Blood Pressure 110/64 11/06/2024 9:20 AM EDT Pulse 94 11/06/2024 9:20 AM EDT Temperature 36.2 C (97.2 F) 11/06/2024 9:20 AM EDT Respiratory Rate 20 11/06/2024 9:20 AM EDT Oxygen Saturation 99% 11/06/2024 9:20 AM EDT Inhaled Oxygen Concentration - - Weight 109 kg (240 lb) 11/06/2024 9:20 AM EDT Height 180.3 cm (5' 11 ) 11/06/2024 9:20 AM EDT Body Mass Index 33.47 11/06/2024 9:20 AM EDT documented in this encounter Functional Status * Over the past 2 weeks, how often have you been bothered by any of the following problems? Question Answer Date of Assessment Author Patient Health Questionnaire -2 Score 2 11/06/2024 1:47 PM EDT Shy Ulrich * Little interest or pleasure in doing things Answer Date of Assessment Author Several days 11/06/2024 1:47 PM EDT Beth Emmanuel * Feeling down, depressed, or hopeless Answer Date of Assessment Author Several days 11/06/2024 1:47 PM EDT Beth Emmanuel * Trouble falling or staying asleep, or sleeping too much Answer Date of Assessment Author Not at all 11/06/2024 1:47 PM EDT Beth Emmanuel * Feeling tired or having little energy Answer Date of Assessment Author Several days 11/06/2024 1:47 PM EDT Beth Emmanuel * Poor appetite or overeating Answer Date of Assessment Author Not at all 11/06/2024 1:47 PM EDT Beth Emmanuel * Feeling bad about yourself - or that you are a failure or have let yourself or your family down Answer Date of Assessment Author Not at all 11/06/2024 1:47 PM EDT Beth Emmanuel * Trouble concentrating on things, such as reading the newspaper or watching television Answer Date of Assessment Author Several days 11/06/2024 1:47 PM EDT Beth Emmanuel * Moving or speaking so slowly that other people could have noticed? Or the opposite - being so fidgety or restless that you have been moving around a lot more than usual. Answer Date of Assessment Author Not at all 11/06/2024 1:47 PM EDT Beth Emmanuel * Thoughts that you would be better off or hurting yourself in some way Answer Date of Assessment Author Not at all 11/06/2024 1:47 PM MARYSOLT Beth Emmanuel * Patient Health Questionnaire-9 Score Answer Date of Assessment Author 4 11/06/2024 1:47 PM MARYSOLT Bteh Emmanuel * How difficult have these problems made it for you to do your work, take care of things at home, or get along with other people? Answer Date of Assessment Author Somewhat difficult 11/06/2024 1:47 PM MARYSOLT Beth Ulrich * Over the last 2 weeks, how often have you been bothered by any of the following problems? Question Answer Date of Assessment Author Feeling nervous, anxious, or on edge 1 11/06/2024 1:47 PM EDT Shy Ulrich ctoria Not being able to stop or control worrying 1 11/06/2024 1:47 PM EDT Shy Ulrich Worrying too much about different things 1 11/06/2024 1:47 PM EDT Shy Ulrich Trouble relaxing 1 11/06/2024 1:47 PM EDT Beth Tracy Being so restless that it is hard to sit still 1 11/06/2024 1:47 PM EDT Shy Ulrich ctestella Becoming easily annoyed or irritable 1 11/06/2024 1:47 PM EDT Shy Ulrich Feeling afraid as if somethi ng awful might happen 0 11/06/2024 1:47 PM EDT Shy Ulrich KEY-7 Total Score 6 11/06/2024 1:47 PM EDT Beth Ulrich documented as of this encounter Patient Instructions * Patient Instructions* IRENE Delacruz - 11/06/2024 9:30 AM EDT Please call [facility] program at [phone] for a consult regarding weight loss options. You can also request a visit at [facility] ( ) or [facility] in [place] ( ) or [facility] in [place] ([phone]). documented in this encounter Plan of Treatment Upcoming Encounters Date Type Department Care Team (Late st Contact Info) Description 03/01/2025 9:30 AM EST Office Visit [facility] [address] [place] [address] Yocasta Cho, OD [address] [facility] [place] [address] Scheduled Orders Name Type Priority Associated Diagnoses Orde r Schedule CBC auto differential Lab Routine Shortness of breath Expected: 11/06/2024 (Approximate), Expires: 11/06/2025 documented as of this encounter Visit Diagnoses Diagnosis Class 1 obesity with serious comorbidity and body mass index (BMI) of 33.0 to 33.9 in adult, unspecified obesity type- Primary Shortness of breath Anxiety Anxiety state, unspecified Stress Other psychological or physical stress, not elsewhere classified HOUSER (nonalcoholic steatohepatitis) Other chronic nonalcoholic liver disease Mild intermittent asthma without complication documented in this encounter Additional Health Concerns Assessment Noted Time PHQ-9 Depression Total Score: 4 11/07/19 25 1:47 PM EDT documented as of this encounter Care Teams Floorworker Distributor Relationship Specialty Start Date End Date Leatha Yip ANP [address] [place] [address] PCP - General Family Medicine 07/27/19 Mariola Kamara Electromechanical InspectorSupervisor Seaming 02/09/23 documented as of this encounter
--- OUTSIDE RECORDS SUMMARY | 2024-11-07 10:05 | XMS_ITS | Encounter Summary ---
Author Organization [employer] Address [address] [place] [address] Care Team Providers Care Supervisor Fish Processing Name Role Phone Leatha Yip IRENE Primary Care Provider [phone] Encounter Details Date Type Department Care Team (Latest Contact Info) Description 11/06/2024 Travel Social History Tobacco Use Types Packs/Day Years Used Date Smoking Tobacco: Never Passive Smoke Exposure: Never Smokeless Tobacco: Never Depression Answer Date Recorded Patient Health Questionnaire-9 Score 4 11/06/2024 Patient Health Questionnaire-9 Score 4 11/06/2024 Last PHQ-9: Questionnaire Data Not on file 0 11/06/2024 Housing Stability Answer Date Recorded What is your housing situation today? I have eufemia leo 11/06/[address] you li [...] AM EDT documented as of this encounter Functional Status * Over the past 2 weeks, how often have you been bothered by any of the following problems? Question Answer Date of Assessment Author Patient Health Questionnaire -2 Score 2 11/06/2024 1:47 PM EDT Shy Ulrich ctoria * Little interest or pleasure in doing [...] 11/06/2024 1:47 PM EDT Beth Emmanuel * Patient Health Questionnaire-9 Score Answer Date of Assessment Author 4 11/06/2024 1:47 PM EDT Beth Emmanuel * How difficult have these problems made it for you to do your work, take care of things at home, or get along with other people? Answer Date of Assessment Author Somewhat difficult 11/06/2024 1:47 PM EDT Beth Ulrich * Over the last 2 weeks, how often have you been bothered by any of the following problems? Question Answer Date of Assessment Author Feeling nervous, anxious, or on edge 1 11/06/2024 1:47 PM EDT Shy Ulrich ctestella Not being able to stop or control worrying 1 11/06/2024 1:47 PM EDT Shy Ulrich ctoria Worrying too much about different things 1 11/06/2024 1:47 PM EDT Shy Ulrich ctestella Trouble relaxing 1 11/06/2024 1:47 PM EDT Beth Tracy Being so restless that it is hard to sit still 1 11/06/2024 1:47 PM EDT Simeon Tracy V ictoria Becoming easily annoyed or irritable 1 11/06/2024 1:47 PM EDT Shy Ulrich ctoria Feeling afraid as if somethi ng awful might happen 0 11/06/2024 1:47 PM EDT Shy Ulrich ctestella KEY-7 Total Score 6 11/06/2024 1:47 PM EDT Beth Ulrich documented as of this encounter Plan of Treatment Upcoming Encounters Date Type Department Care Team (Late st Contact Info) Description 03/01/2025 9:30 AM EST Office Visit [facility] [address] [place] [address] Yocasta Cho, OD [address] [place] [address] documented as of this encounter Visit Diagnoses Not on filedocumented in this encounter Additional Health Concerns Assessment Noted Time PHQ-9 Depression Total Score: 4 11/07/19 25 1:47 PM EDT documented as of this encounter Care Teams Supervisor Fish Processing Relationship Specialty Start Date End Date Leatha Yip ANP [address] [place] [address] PCP - General Family Medicine 07/27/19 Mariola Kamara Stave CutterAgile Business Analyst 02/09/23 documented as of this encounter
--- OUTSIDE RECORDS SUMMARY | 2024-11-07 10:05 | XMS_ITS | Clinical Summary ---
Author Organization [facility] Address [address] [place] [phone] Phone Care Team Providers Care Home Attendant Name Role Phone Pcp, Unknown Primary Care Provider Unavailabl e Allergies No known active allergies Medications benzonatate (TESSALON) 100 MG capsule Take 1 capsule (100 mg total) by mouth 3 (three) times a day as needed. 20 capsule 10/10/2023 Active albuterol 90 mcg/actuation inhaler Inhale 2 puffs into the lungs every 6 (six) hours as needed for wheezing (cough). 18 g 10/10/2023 Active inhaler spacing device (AEROCHAMBER,BR EATHERITE) Spcr Inhale 1 each into the lungs every 6 (six) hours as needed (with inhaler). 1 each 10/10/2023 Active azithromycin (ZITHROMAX) 250 MG tablet 2 tablets on day 1, one tablet day 2 through 5 6 tablet 10/10/2023 Active Social History Tobacco Use Types Packs/Day Years Used Date Smoking Tobacco: Never Assessed Education Answer Date Recorded Are you interested in more education? Not on zuly e 10/10/2023 Are you concerned about learning? Not on file 10/10/2023 No 10/10/2023 No 10/10/2023 Digital Access Answer Date Recorded No 10/10/2023 No 10/10/2023 Reliable internet access at home? Not on file 10/10/2023 Device with a working camera? Not on file Intimate Partner Violence Answer Date R ecorded Are you denied basic needs s uch as food, clothing, or medical care? No 10/10/2023 In the past 12 months have y ou been in a relationship with a person who hurts, threatens, or tries to control you? No 10/10/2023 Are you denied basic needs s uch as food, clothing, or medical care? No 10/10/2023 In the past 12 months have y ou been in a relationship with a person who hurts, threatens, or tries to control you? No 10/10/2023 Comments Unknown Sex and Gender Information Value Date Recorded Sex Assigned at Not on file Legal Sex Female 2:26 PM EDT Gender Identity Female 10/10/2023 4:33 PM EDT Sexual Orientation Don't know 10/10/2023 4: 33 PM EDT Last Filed Vital Signs Vital Sign Reading Time Taken Comments Blood Pressure 107/75 10/10/2023 5:34 PM EDT Pulse 82 10/10/2023 5:34 PM EDT Temperature 35.9 C (96.6 F) 10/10/2023 5:34 PM EDT Respiratory Rate 16 10/10/2023 5:34 PM EDT Oxygen Saturation 98% 10/10/2023 5:34 PM EDT Inhaled Oxygen Concentration - - Weight 103.4 kg (228 lb) 10/10/2023 2:42 PM EDT Height 180.3 cm (5' 11 ) 10/10/2023 2:42 PM EDT Body Mass Index 31.8 10/10/2023 2:42 PM EDT Plan of Treatment Health Maintenance Due Date Last Done Comments DEPRESSION SCREENING 1999 SMOKING Hx and SMOKELESS TOBACCO SCREENING 01/21/2000 HEPATITIS C SCREENING 2005 HIV ONE-TIME SCREENING (18-6 5 YEARS) 2005 PAP SMEAR 01/21/2008 SCREENING FOR DIABETES 2022 INFLUENZA VACCINE (#1) 2024 COVID-19 VACCINE (2023-2 5 season) 2024 Adult Td,Tdap Booster 12/10/2026 12/10/2016 , 09/04/2015 HEPATITIS A VACCINES Aged Out No long er eligible based on patient's age to complete this topic HIB VACCINES Aged Out No longer eligi ble based on patient's age to complete this topic MENINGOCOCCAL VACCINES (ACWY) Aged Out No longer eligible based on patient's age to complete this topic MENINGOCOCCAL VACCINES (B) Aged Out N o longer eligible based on patient's age to complete this topic PNEUMOCOCCAL VACCINES (0-49 years) Aged Out No longer eligible b ased on patient's age to complete this topic Medical Devices Not on file Insurance C3 ACO C3 ACO C3 ACO [address] C3 ACO [address] C3 ACO [address] C3 ACO Care Teams Home Attendant Relationship Specialty Start Date End Date Pcp, Unknown PCP - General 10/10/23 Additional Source Comments The information contained in this document represents components of the legal health record. It is not the complete legal health record.[facility]
--- OUTSIDE RECORDS SUMMARY | 2024-11-07 10:05 | XMS_ITS | Clinical Summary ---
Author Organization [employer] Address [address]t [place] [address] Care Team Providers Care Machine Feeder Name Role Phone Leatha Yip IRENE Primary Care Provider [phone] Allergies No known active allergies Medications * This document contains information received from the source organization and may not represent a complete record from that organization. ibuprofen 600 MG tabletIndication s:Acute pain of both knees,Pain in both lower extremities,Acut e midline low back pain without sciatica Take 1 tablet (600 mg) by mouth every 8 (eight) hours if needed for moderate pain or fever. 60 tablet 1 4 Active Levonorgestrel (Liletta, 52 MG,) 20.1 MCG/DAY intrauterine device 52 mg by Intrauterine route. 7 Active albuterol 108 (90 Base) MCG/ACT inhalerIndicatio ns:Shortness of breath Inhale 2 puffs every 6 (six) hours if needed for shortness of breath. 18 g 5 Active Tirzepatide-Weig ht Management (Zepbound) 2.5 MG/0.5ML solution auto-injectorInd ications:Class 1 obesity with serious comorbidity and body mass index (BMI) of 32.0 to 32.9 in adult, unspecified obesity type Inject 0.5 mL (2.5 mg) under the skin 1 (one) time per week. 2 mL 5 Active budesonide-formo terol (Symbicort) 80-4.5 MCG/ACT inhalerIndicatio ns:Mild intermittent asthma without complication Take 2 puffs twice daily and use as needed up to every 4-6 hours for SOB. Rinse mouth with water after use to reduce aftertaste and incidence of candidiasis. Do not swallow. 1 each 11 5 Active phentermine 15 MG capsuleIndicatio ns:Class 1 obesity with serious comorbidity and body mass index (BMI) of 33.0 to 33.9 in adult, unspecified obesity type Take 1 capsule (15 mg) by mouth before breakfast. 30 capsule 5 025 Active Active Problems Problem Noted Date Diagnosed Date Anxiety disorder, unspecified 11/06/2024 History of abnormal cervical Papanicolaou smear 08/31/2023 Overview (08/31/2023): s/p LEEP 2017 Class 1 obesity with body ma ss index (BMI) of 32.0 to 32.9 in adult 08/31/2023 Abnormal Pap smear of cervix 05/10/2017 Backache 05/02/2012 Microscopic hematuria 05/02/2012 Mantoux: positive 05/02/2012 Constipation 05/02/2012 Encounters * This document contains information received from the source organization and may not represent a complete record from that organization. Date Type Department Care Team Description 11/06/2024 9:30 AM EDT Office Visit [facility] [address] [place] [phone] Leatha Yip ANP Class 1 obesity with serious comorbidity and body mass index (BMI) of 33.0 to 33.9 in adult, unspecified obesity type (Primary Dx); Shortness of breath; Anxiety; Stress; HOUSER (nonalcoholic steatohepatitis); Mild intermittent asthma without complication 11/06/2024 Travel 11/05/2024 Telephone [facility] [address] [place] [phone] Leatha Yip ANP chart prep 08/29/2024 Telephone [facility] [address] [place] [address] Leatha Yip ANP chart prep from Last 3 Months Immunizations Immunization Administration Dates Next Due Hep B, adult [...] Mass Index 33.47 11/06/2024 9:20 AM EDT Plan of Treatment Upcoming Encounters Date Type Department Care Team (Late st Contact Info) Description 03/01/2025 9:30 AM EST Office Visit [facility] [address] [place] [address] Yocasta Cho, OD [address] [place] [address] Health Maintenance Due Date Last Done Comments Family Planning (PISQ) 2002 HPV Vaccines (1 - 3-dose series) 2002 Hepatitis A Vaccines (1 of 2 - Risk 2-dose series) 2006 Pneumococcal Vaccine: Pediatrics (0 to 5 Years) and At-Risk Patients (6 to 49) Years (1 of 2 - PCV) 2006 Pap Smear 01/21/2008 Cervical Cancer Screening 2017 HPV/Cotest 2017 COVID-19 Vaccine (3 - 2024-2 6 season) 2024 10/15/2020, 09/02/2020 Influenza Vaccine (#1) 2024 7, 11/13/2015 Alcohol/Substance Use Screening 11/06/2025 11/06/2024 Depression Screening 11/06/2025 11/06/2024, 11/06/2024 Disability Screening 11/06/2025 11/06/2024 SDOH Screening 11/06/2025 11/06/2024 Tobacco Screening 11/06/2025 11/06/2024 DTaP/Tdap/Td Vaccines (3 - T d or [...] patient's age to complete this topic Meningococcal B Vaccine Aged Out No l onger eligible based on patient's age to complete [...] Generation, with Reflexes (08/30/2023 10:23 AM EDT) Pathologist [facility] HIV AB/AG Nonreactive Nonreactive [facility] Comment:HIV-1 p24 Ag and/or HIV-1/HIV-2 Ab not detected.A test result that is nonreactive does not exclude thepossibility of exposure to or infection with HIV-1 and/orHIV-2. Nonreactive results in this assay for individualswith prior exposure to HIV-1 and/or HIV-2 may be due toantigen and antibody levels that are below the limit ofdetection of this assay.The [employer] HIV Ag/Ab Combo assay result andsupplemental assay results should be interpreted inconjunction with the patient's clinical presentation,history and other laboratory results. If the results areinconsistent with clinical evidence, additional testing issuggested to confirm the result. Blood Venous blood specimen / Unknown 08/30/2023 10:23 AM EDT 08/30/2023 11:14 AM EDT Leatha Yip [facility] BLOOD ORDERABLES Final Resul t Performing Organization Address [facility] Co de Phone Number [facility] [address] [place] [address] [phone] * (ABNORMAL) Lipid Panel, Standard (08/30/2023 10:23 AM EDT) Triglycerides 44 <150 mg/dL [facility] Comment:Desirable Triglyceri de: less than 150 mg/dLBorderline High Triglyceride 150-199 mg/dLHigh Triglyceride: 200-499 mg/dLVery High Triglyceride: greater than or equal to 5OO mg/dL Cholesterol 164 <200 mg/dL [facility] Comment:Desirable Cholestero l: less than 200 mg/dLBorderline High Cholesterol: 200-239 mg/dLHigh Cholesterol: greater than 239 mg/dL LDL Cholesterol Calculated 103(H) <100 mg/dL [facility] Comment:Desirable LDL: less than 100 mg/dLNear Optimal/Above Optimal LDL: 110- 129 mg/dLBorderline High LDL: 130-159 mg/dLHigh LDL: 160-189 mg/dLVery High LDL: greater than or equal to 190 mg/dL HDL Cholesterol 53 >40 mg/dL [facility] Comment:Desirable HDL: great er than 40 mg/dL Note: This HDL assay may give artificially low results in patients with liver disease. Blood Venous blood specimen / Unknown 08/30/2023 10:23 AM EDT 08/30/2023 11:14 AM EDT us Leatha Yip ANP LAB BLOOD ORDERABLES Final Resul t Performing Organization Address [facility] Co de Phone Number [facility] [address] [place] [phone] * HEPATITIS A,B,C PROFILE (06/20/2019 9:05 [...] acute HCV infection. 06/20/2019 9:05 AM EDT us Historical Provider HISTORICAL/NON ORDERABLE LABS Final Result [facility] [address] from Last 3 Months or Most Recently Relevant to Health Maintenance Insurance [address] [place], [place] [employer] [address] [place] Care Teams Machine Feeder Relationship Specialty Start Date End Date Leatha Yip ANP [address] [place] [address] PCP - General Family Medicine 07/27/19 Mariola Kamara Electrical Service TechnicianCpc 02/09/23
--- OUTSIDE RECORDS SUMMARY | 2024-11-07 10:05 | XMS_ITS | Encounter Summary ---
Author Organization [employer] Address [address] [facility] 7[address] [place] [address] Care Team Providers Care Integration Assistant Name Role Phone Leatha Yip Primary Care Provider [phone] Reason for Visit * Reason Onset Date Comments chart prep 11/05/2024 Encounter Details Date Type Department Care Team ([facility] st Contact Info) Description 11/05/2024 Telephone [facility] [address] [place] [address] Leatha Yip ANP [address] [place] [address] chart prep Social History Tobacco Use Types Packs/Day [...] encounter Miscellaneous Notes * Telephone Encounter - [place] Null [place] - 11/05/2024 8:55 AM EDT Chart Prep Labs: not done Images: done Referrals: not applicable Vaccines due: Covid, Flu, Hep A, and HPV Screenings: pap smear Overdue care gaps: SBIRT, SDOH, Oral health screening, and Disability screen documented in this encounter Plan of Treatment Upcoming Encounters Date Type Department Care Team (Late st Contact Info) Description 03/01/2025 9:30 AM EST Office Visit [facility] [address] [place] [address] Marquis, Yocasta, OD [address] [place] [address] documented as of this encounter Visit Diagnoses Not on filedocumented in this encounter Additional Health Concerns Assessment Noted Time PHQ-9 Depression Total Score: 5 05/22/19 25 12:29 PM EDT documented as of this encounter Care Teams Integration Assistant Relationship Specialty Start Date End Date Leatha Yip ANP [address] [place] [address] PCP - General Family Medicine 07/27/19 Mariola Kamara Air Conditioning EngineerChief Engineer 02/09/23 documented as of this encounter
--- OUTSIDE RECORDS SUMMARY | 2024-11-07 10:05 | XMS_ITS | Encounter Summary ---
Author Organization [employer] Address [address] [facility] 7t [place] [address] Care Team Providers Care Website/Blog Editor Name Role Phone Leatha Yip Primary Care Provider [phone] Encounter Details Date Type Department Care Team (Latest Contact Info) Description 08/21/2018 Abstract [facility] CONVERSIONS Dental, Provider, DDS Social History [...] Description 03/01/2025 9:30 AM EST Office Visit [facility] OPTOMETRY [address] [place] [address] Marquis, Yocasta, OD [address] [place] [address] documented as of this encounter Visit Diagnoses Not on filedocumented in this encounter Care Teams Website/Blog Editor Relationship Specialty Start Date End Date Leatha Yip ANP [address] [place] [address] PCP - General Family Medicine 07/27/19 Mariola Kamara Java Application EngineerTar And Ammonia Pump Operator 02/09/23 documented as of this encounter
[2024-11-07 11:05] LABS: MANUAL DIFF FLAG NO
[2024-11-07 11:28] LABS: Hematocrit 39.4 % (37.0-47.0); Hemoglobin 12.5 g/dl (12.0-16.0); Imm Gran Abs Auto 0.02 X10*3/uL (0.00-0.03); Imm Gran Pct Auto 0.3 % (0.0-0.4); Lymphocytes Absolute Auto 2.3 X10*3/uL (1.2-4.9); Mean Corpuscular HGB Conc 31.7 g/dl (31.0-35.0); Mean Corpuscular Hemoglobin 28.0 pg (27.0-33.0); Mean Corpuscular Volume 88.1 fL (80.0-98.0); NRBC Abs Auto 0.000 X10*3/uL (0.0-0.012); NRBC Pct Auto 0.0 /100WBC (0.0-0.2); Platelet Count 311 X10*3/uL (160-400); Red Blood Count 4.47 X10*6/uL (4.20-5.50); White Blood Count 7.6 X10*3/uL (4.8-10.8)
[2024-11-07 12:00] LABS: Alanine Aminotransferase 17 U/L (0-31); Albumin Level 4.4 g/dL (3.5-5.0); Alkaline Phosphatase 58 U/L (39-117); Anion Gap 14 (12-20); Aspartate Amino Transferase 22 U/L (5-31); Blood Urea Nitrogen 9 mg/dL (9-16); Calcium 9.4 mg/dL (8.4-10.2); Carbon Dioxide 25 mmol/L (22-29); Chloride 106 mmol/L (96-108); Cholesterol 199 mg/dL (<200); Estimated Glomerular Filt Rate > 60; HDL Cholesterol 58 mg/dL (>40); Potassium 3.9 mmol/L (3.3-5.1); Sodium 141 mmol/L (135-145); Total Protein 8.0 g/dL (6.5-8.0); Triglycerides 77 mg/dL (<150)
== END 2024-11-07 09:18 | disposition home or self-care (01) ==
LOC: HO.HHCL 09:17
PROVIDERS: PCP Nurse Practitioner Primary Care; Visit Provider Nurse Practitioner Primary Care
DX: R06.02 Shortness of breath (principal); K75.81 Nonalcoholic steatohepatitis (NASH)
CPT/HCPCS: 36415; 80053; 80061; 83036; 85025

== ENCOUNTER 2025-01-25 17:22 | Outpatient (REF) | payer MEDICAID, SELFPAY ==
--- OUTSIDE RECORDS SUMMARY | 2025-01-25 09:15 | XMS_ITS | Encounter Summary ---
Author Organization [employer] Address [address] [facility] [address] [place] [address] Care Team Providers Care Regional Sales Leader Name Role Phone Leatha Yip Primary Care Provider [phone] Reason for Visit * Reason Comments Follow-up weight Encounter Details Date Type Department Care Team ([facility] st Contact Info) Description 01/25/2025 9:15 AM EST Office Visit [facility] [address] [place] [address] Leatha Yip ANP [address] [place] [address] Albuminuria (Primary Dx); Microscopic hematuria; Class 1 [...] reports she had protein in urine at [facility] for work at [employer] [place] [place]. We will repeat this. She has no [...] dose if bloating occurs; prescription sent to [facility] This note was drafted using Ambient (AI) technology. The patient/patient's guardian has been informed and has consented to the use of this technology: Yes documented in this encounter Plan of Treatment Upcoming Encounters Date Type Department Care Team (Late st Contact Info) Description 03/01/2025 9:30 AM EST Office Visit [facility] OPTOMETRY [address] [place] [address] Marquis, Yocasta, OD [address] [place] [address] 04/25/2025 9:15 AM EDT Office Visit [facility] [address] [place] [address] Leatha Yip ANP [address] [place] [address] Scheduled Orders Name Type Priority Associated Diagnoses [...] documented as of this encounter Care Teams Regional Sales Leader Relationship Specialty Start Date End Date Leatha Yip ANP [address] [place] [id number] PCP - General Family Medicine 07/27/19 Mariola Kamara Manufacturing Quality TechnicianSoftware Quality Test Engineer 02/09/23 documented as of this encounter
--- OUTSIDE RECORDS SUMMARY | 2025-01-25 17:26 | XMS_ITS | Clinical Summary ---
Author Organization [facility] Address [address] [place] [phone] Phone Care Team Providers Care Head Knitting Machine Fixer Name Role Phone Pcp, Unknown Primary Care [...] 2022 INFLUENZA VACCINE (#1) 2024 COVID-19 VACCINE (2024-2 6 season) 2024 Adult Td,Tdap Booster 12/10/2026 12/10/2016 [...] C3 ACO C3 ACO [facility]3 ACO [address] C3 ACO [address] C3 ACO [address] C3 ACO Care Teams Head Knitting Machine Fixer Relationship Specialty Start Date End Date Pcp, Unknown PCP - General 10/10/23 Additional Source Comments The information contained in this document represents components of the legal health record. It is not the complete legal health record.[facility]
--- OUTSIDE RECORDS SUMMARY | 2025-01-25 17:26 | XMS_ITS | Encounter Summary ---
Author Organization [employer] Address [address] [facility] [address] [place] [address] Care Team Providers Care Middle School History Teacher Name Role Phone Leatha Yip Primary Care Provider [phone] Encounter Details Date Type Department Care Team (Latest Contact Info) Description 12/03/2024 Results Follow-Up [facility] [address] [place] [address] Leatha Yip ANP [address] [place] [address] CBC auto differential Social History Tobacco Use Types Packs/Day Years [...] 9:30 AM EST Office Visit [facility] OPTOMETRY [address] [place] [address] Marquis, Yocatsa, OD [address] [place] [address] 04/25/2025 9:15 AM EDT Office Visit [facility] MED[facility] [address] [place] [address] Leatha Yip ANP [address] [place] [address] documented as of this encounter Visit Diagnoses Not on filedocumented in this encounter Additional Health Concerns Assessment Noted Time PHQ-9 Depression Total Score: 4 11/07/19 25 1:47 PM EDT documented as of this encounter Care Teams Middle School History Teacher Relationship Specialty Start Date End Date Leatha Yip ANP [address] [place] [address] PCP - General Family Medicine 07/27/19 Mariola Kamara Scrap PilerDross Puller 02/09/23 documented as of this encounter
--- OUTSIDE RECORDS SUMMARY | 2025-01-25 17:26 | XMS_ITS | Encounter Summary ---
Author Organization [employer] Address [address] [facility] [address] [place] [address] Care Team Providers Care Jd Edwards Developer Name Role Phone Leatha Yip IRENE Primary Care Provider [phone] Encounter Details Date Type Department Care Team (Latest Contact Info) Description 01/25/2025 Travel Social History Tobacco Use Types Packs/Day [...] Description 03/01/2025 9:30 AM EST Office Visit [facility] OPTOMETRY [address] [place] [address] Marquis, Yocasta, OD [address] [place] [address] 04/25/2025 9:15 AM EDT Office Visit [facility] MED[facility] [address] [place] [address] Leatha Yip ANP [address] [place] [address] documented as of this encounter Visit Diagnoses Not on filedocumented in this encounter Additional Health Concerns Assessment Noted Time PHQ-9 Depression Total Score: 4 11/07/19 25 1:47 PM EDT documented as of this encounter Care Teams Jd Edwards Developer Relationship Specialty Start Date End Date Leatha Yip ANP [address] [place] [address] PCP - General Family Medicine 07/27/19 Mariola Kamara Mobile ManagerValve Machine Operator 02/09/23 documented as of this encounter
--- OUTSIDE RECORDS SUMMARY | 2025-01-25 17:26 | XMS_ITS | Clinical Summary ---
Author Organization [employer] Address [address] [facility] 7t [place] [address] Care Team Providers Care Senior Devops Engineer Name Role Phone Leatha Yip IRENE Primary Care Provider [phone] Allergies No known active allergies Medications * This document contains information received from the source organization and may not represent a complete record from that organization. ibuprofen 600 MG tabletIndicatio ns:Acute pain of [...] for shortness of breath. 18 g 025 Active budesonide-form oterol (Symbicort) 80-4.5 MCG/ACT inhalerIndicati ons:Mild intermittent asthma without complication Take 2 puffs twice daily and use as needed up to every 4-6 hours for SOB. Rinse mouth with water after use to reduce aftertaste and incidence of candidiasis. Do not swallow. 1 each 11 025 Active phentermine (Adipex-P) 37.5 MG tabletIndicatio ns:Class 1 obesity with serious comorbidity and body mass index (BMI) of 33.0 to 33.9 in adult, unspecified obesity type Take 1 tablet (37.5 mg) by mouth before breakfast. 30 tablet 025 2025 Active psyllium (Metamucil Smooth Texture) 58.6 % powderIndicatio ns:Constipation , unspecified constipation type Take 1 tsp once daily in 8oz of water 283 g 11 Active Tirzepatide-Don ght Management (Zepbound) 2.5 MG/0.5ML solution auto-injectorIn dications:Class 1 obesity with serious comorbidity and body mass index (BMI) of 32.0 to 32.9 in adult, unspecified obesity type Inject 0.5 mL (2.5 mg) under the skin 1 (one) time per week. 2 mL 025 2024 Discontinued(F ormulary change) phentermine (Adipex-P) 37.5 MG tabletIndicatio ns:Class 1 obesity with serious comorbidity and body mass index (BMI) of 33.0 to 33.9 in adult, unspecified obesity type Take 1 tablet (37.5 mg) by mouth before breakfast. 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 Date Type Department Care Team Description 01/25/2025 9:15 AM EST Office Visit [facility] [address] [place] [phone] Leatha Yip ANP Albuminuria (Primary Dx); Microscopic hematuria; Class 1 obesity with body mass index (BMI) of 31.0 to 31.9 in adult, unspecified obesity type, unspecified whether serious comorbidity present; Constipation, unspecified constipation type 01/25/2025 Travel 01/24/2025 Telephone [facility] [place] [address] Leatha Yip ANP chart prep 01/18/2025 Travel 01/17/2025 Refill [facility] [place] [address] Leatha Yip ANP Class 1 obesity with serious comorbidity and body mass index (BMI) of 33.0 to 33.9 in adult, unspecified obesity type 01/02/2025 Orders Only [facility] [place] [address] Leatha Yip ANP 12/12/2024 Refill [facility] [place] [address] Leatha Yip ANP Class 1 obesity with serious comorbidity and body mass index (BMI) of 33.0 to 33.9 in adult, unspecified obesity type; Vaginal discharge 12/07/2024 Telephone [facility] [place] [address] Leatha Yip ANP Medication Question 12/05/2024 Results Follow-Up [facility] [place] [address] Leatha Yip ANP Comprehensive Metabolic Panel, Hemoglobin A1c, Lipid Panel, Standard 12/03/2024 Results Follow-Up [facility] [place] [address] Leatha Yip ANP CBC auto differential 11/29/2024 9:45 AM EDT Office Visit [facility] [place] [address] Letty Mike MD Anxiety (Primary Dx); Chronic bilateral low back pain without sciatica 11/29/2024 Travel 11/27/2024 9:15 AM EDT Office Visit [facility] [place] [address] Letty Mike MD Anxiety (Primary Dx); Chronic bilateral low back pain without sciatica 11/27/2024 Travel 11/08/2024 Telephone [facility] [place] [address] Leatha Yip ANP january11/06/2024 9:30 AM EDT Office Visit [facility] [address] [place] [address] Leatha Yip ANP Class 1 obesity with serious comorbidity and body mass index (BMI) of 33.0 to 33.9 in adult, unspecified obesity type (Primary Dx); Shortness of breath; Anxiety; Stress; HOUSER (nonalcoholic steatohepatitis); Mild intermittent asthma without complication 11/06/2024 Travel 11/05/2024 Telephone [facility] [address] [place] [address] Leatha Yip ANP chart prep from Last [...] housing situation today? I have eufemiapippa bailey 11/06/[address] you [...] Mass Index 31.66 01/25/2025 9:24 AM EST Plan of Treatment Upcoming Encounters Date Type Department Care Team (Late st Contact Info) Description 03/01/2025 9:30 AM EST Office Visit [facility] [address] [place] [address] Yocasta Cho, OD [address] [place] [address] 04/25/2025 9:15 AM EDT Office Visit [facility] [address] [place] [address] Leatha Yip ANP [address] [place] [address] Health Maintenance Due Date Last Done Comments HPV Vaccines (1 - 3-dose series) 2002 Hepatitis A Vaccines (1 of 2 - Risk 2-dose series) 2006 Pneumococcal Vaccine: Pediatrics (0 to 5 Years) and At-Risk Patients (6 to 49) Years (1 of 2 - PCV) 2006 Pap Smear 01/21/2008 Cervical Cancer Screening 2017 HPV/Cotest 2017 Influenza Vaccine (#1) 2025 7, 11/13/2015 Postponed from 10/08/2024 (Patient Refused) Alcohol/Substance Use Screening 11/06/2025 11/06/2024 Depression Screening 11/06/2025 11/06/2024, 11/06/2024 SDOH Screening 11/06/2025 11/06/2024 Disability Screening 01/18/2026 01/18/2025 COVID-19 Vaccine (3 - 2024-2 6 season) 2026 10/15/2020, 09/02/2020 Postponed from 10/08/2024 (Patient Refused) Family Planning (PISQ) 01/25/2026 01/25/2025 Tobacco Screening 01/25/2026 01/25/2025 DTaP/Tdap/Td Vaccines (3 - T d or Tdap) 12/10/2026 12/10/2016, 09/04/2015 Lipid Panel 11/07/2029 11/07/2024, 08/30/2023 Zoster Vaccines (1 of 2) 2037 [...] Procedure Name Priority Date/Time Associated Diagnosis Comments CBC WITH AUTO DIFFERENTIAL Routine 11/07/2024 9:20 AM EDT Shortness of breath LIPID PANEL, STANDARD Routine 11/07/2024 9:20 AM EDT HOUSER (nonalcoholic steatohepatitis) HEMOGLOBIN A1C Routine 11/07/2024 9:20 AM EDT HOUSER (nonalcoholic steatohepatitis) COMPREHENSIVE METABOLIC PANEL Routine 11/07/2024 9:20 AM EDT HOUSER (nonalcoholic steatohepatitis) HIV 1/2 ANTIGEN/ANTIBODY, FOURTH GENERATION W/RFL Routine 08/30/2023 10:23 AM EDT Healthcare maintenance ZZZ HISTORICAL HEPATITIS A,B,C PROFILE Routine 06/20/2019 9:05 AM EDT from Last 3 Months or Most Recently Relevant to Health Maintenance Results * CBC auto differential (11/07/2024 9:20 AM EDT) White Blood Count 7.6 4.8 - 10.8 X10*3/uL [facility] Red Blood Count 4.47 4.20 - 5.50 X10*6/uL [facility] Hemoglobin 12.5 12.0 - 16.0 g/dl [facility] Hematocrit 39.4 37.0 - 47.0 % [facility] Mean Corpuscular Volume 88.1 80.0 - 98.0 fL [facility] Mean Corpuscular Hemoglobin 28.0 27.0 - 33.0 pg [facility] Mean Corpuscular HGB Conc 31.7 31.0 - 35.0 g/dl [facility] Red Cell Distribution Width 13.3 11.0 - 16.0 % [facility] Platelet Count 311 160 - 400 X10*3/uL [facility] Mean Platelet Volume 10.4 9.4 - 12.3 fL [facility] Neutrophils Percent Auto 61.7 45 - 73 % [facility] Imm Gran Pct Auto 0.3 0.0 - 0.4 % [facility] Lymphocytes Percent Auto 30.1 20 - 40 % [facility] Monocytes Percent Auto 5.4 2 - 11 % [facility] Eosinophils Percent Auto 2.0 0 - 4 % [facility] Basophils Percent Auto 0.5 0 - 2 % [facility] NRBC Pct Auto 0.0 0.0 - 0.2 /100WBC [facility] Neutrophils Absolute Auto 4.7 2.0 - 8.3 x10*3/uL [facility] Imm Gran Abs Auto 0.02 0.00 - 0.03 X10*3/uL [facility] Lymphocytes Absolute Auto 2.3 1.2 - 4.9 X10*3/uL [facility] Monocytes Absolute Auto 0.4 0.1 - 1.2 X10*3/uL [facility] Eosinophils Absolute Auto 0.2 0.0 - 0.4 X10*3/uL [facility] Basophils Absolute Auto 0.0 0.0 - 0.2 X10*3/uL [facility] NRBC Abs Auto 0.000 0.0 - 0.012 X10*3/uL [facility] Blood Venous blood specimen / Unknown 11/07/2024 9:20 AM EDT 11/07/2024 11:04 AM EDT [facility] LAB BLOOD ORDERABLES Final Resul t [facility] [address] [place] [phone] * Hemoglobin A1c (11/07/2024 9:20 AM EDT) Hemoglobin A1c 5.2 <6.0 % [facility] Comment:Hemoglobin A1C Refer ence Range Adults: 4.8 - 6.0 % Non diabetic: < 6.0 % Goal: < 7.0 %Additional Action Suggested: > 8.0 %Note: Hemoglobin A1c results are invalid for patients with abnormal amounts of HbF. Blood transfusions may impact the HbA1c concentration in the patient sample. Estimated Average Glucose 103 mg/dL [facility] Comment:eAG = Estimated ave rage glucose which is %A1C expressed asaverage glucose, using the formula of the A9W-IoorsfhHejbhhi Glucose study (ADAG), Diabetes Care, Vol.31,#8,Sep. 2007 Blood Venous blood specimen / Unknown 11/07/2024 9:20 AM EDT 11/07/2024 11:04 AM EDT Leatha Yip ANP LAB BLOOD ORDERABLES Final Resul t Performing Organization Address [facility] de Phone Number [facility] [address] [place] [phone] * (ABNORMAL) Lipid Panel, Standard (11/07/2024 9:20 AM EDT) Triglycerides 77 <150 mg/dL [facility] Comment:Desirable Triglyceri de: less than 150 mg/dLBorderline High Triglyceride 150-199 mg/dLHigh Triglyceride: 200-499 mg/dLVery High Triglyceride: greater than or equal to 5OO mg/dL Cholesterol 199 <200 mg/dL [facility] Comment:Desirable Cholestero l: less than 200 mg/dLBorderline High Cholesterol: 200-239 mg/dLHigh Cholesterol: greater than 239 mg/dL LDL Cholesterol Calculated 126(H) <100 mg/dL [facility] Comment:Desirable LDL: less than 100 mg/dLNear Optimal/Above Optimal LDL: 110- 129 mg/dLBorderline High LDL: 130-159 mg/dLHigh LDL: 160-189 mg/dLVery High LDL: greater than or equal to 190 mg/dL HDL Cholesterol 58 >40 mg/dL [facility] Comment:Desirable HDL: great er than 40 mg/dL Note: This HDL assay may give artificially low results in patients with liver disease. Blood Venous blood specimen / Unknown 11/07/2024 9:20 AM EDT 11/07/2024 10:55 AM EDT us Leatha Yip ANP LAB BLOOD ORDERABLES Final Resul t Performing Organization Address [facility] Co de Phone Number [facility] [address] [place] [address] [phone] * Comprehensive Metabolic Panel (11/07/2024 9:20 AM EDT) Pathologist [facility] Sodium 141 135 - 145 mmol/L [facility] Potassium 3.9 3.3 - 5.1 mmol/L [facility] Chloride 106 96 - 108 mmol/L [facility] Carbon Dioxide 25 22 - 29 mmol/L [facility] Anion Gap 14 12 - 20 [facility] Urea Nitrogen (BUN) 9 9 - 16 mg/dL [facility] Creatinine, Serum 0.65 0.5 - 1.4 mg/dL [facility] Estimated Glomerular Filt Rate >60 [facility] Comment:Chronic Kidney Disea se: Estimated GFR < 60 mL/min/[id number] Kidney Disease: Estimated GFR < 15 mL/min/1.73m2 Glucose 85 60 - 115 mg/dL [facility] Calcium 9.4 8.4 - 10.2 mg/dL [facility] Bilirubin, Total 0.6 0.0 - 1.0 mg/dL [facility] Aspartate Amino Transferase 22 5 - 31 U/L [facility] Alanine Aminotransferase 17 0 - 31 U/L [facility] Total Protein 8.0 6.5 - 8.0 g/dL [facility] Albumin Level 4.4 3.5 - 5.0 g/dL [facility] Alkaline Phosphatase 58 39 - 117 U/L [facility] Blood Venous blood specimen / Unknown 11/07/2024 9:20 AM EDT 11/07/2024 10:55 AM EDT [facility] LAB BLOOD ORDERABLES Final Resul t [facility] [address] [place] [phone] [phone] * HIV-1/2 Antigen and Antibodies, Fourth Generation, with Reflexes (08/30/2023 10:23 AM EDT) Pathologist [facility] HIV AB/AG Nonreactive Nonreactive [facility] Comment:HIV-1 p24 Ag and/or HIV-1/HIV-2 Ab not detected.A test result that is nonreactive does not exclude thepossibility of exposure to or infection with HIV-1 and/orHIV-2. Nonreactive results in this assay for individualswith prior exposure to HIV-1 and/or HIV-2 may be due toantigen and antibody levels that are below the limit ofdetection of this assay.The [employer] HIV Ag/Ab Combo assay result andsupplemental assay results should be interpreted inconjunction with the patient's clinical presentation,history and other laboratory results. If the results areinconsistent with clinical evidence, additional testing issuggested to confirm the result. Blood Venous blood specimen / Unknown 08/30/2023 10:23 AM EDT 08/30/2023 11:14 AM EDT [facility] LAB BLOOD ORDERABLES Final Resul t [facility] [address] [place] [phone] * HEPATITIS A,B,C PROFILE (06/20/2019 9:05 AM EDT) Pathologist [facility] HEPATITIS B CORE ANTIBODY NONREACTIVE NONREACTIVE FOUNDATION [...] Provider MD HISTORICAL/NON ORDERABLE LABS Final Result [facility] [address] from Last 3 Months or Most Recently Relevant to Health Maintenance Insurance [address] [place], [place] [facility] [address] [place] Care Teams Senior Devops Engineer Relationship Specialty Start Date End Date Leatha Yip ANP [address] [place] [address] PCP - General Family Medicine 07/27/19 Mariola Kamara Financial Analysis AdvisorRailroad Firer 02/09/23
--- OUTSIDE RECORDS SUMMARY | 2025-01-25 17:26 | XMS_ITS | Encounter Summary ---
Author Organization [employer] Address [address] [facility] 7t [place] [address] Care Team Providers Care Employee Service Officer Name Role Phone Leatha Yip Primary Care Provider [phone] Encounter Details Date Type Department Care Team (Latest Contact Info) Description 12/05/2024 Results Follow-Up [facility] [address] [place] [address] Leatha Yip ANP [address] [place] [address] Comprehensive Metabolic Panel, Hemoglobin A1c, Lipid Panel, Standard Social History Tobacco Use Types Packs/Day Years [...] Description 03/01/2025 9:30 AM EST Office Visit [facility] [address] [place] [address] MarquisYocasta gastelum, OD [address] [place] [address] 04/25/2025 9:15 AM EDT Office Visit [facility] [address] [place] [address] Leatha Yip ANP [address] [place] [address] documented as of this encounter Visit Diagnoses Not on filedocumented in this encounter Additional Health Concerns Assessment Noted Time PHQ-9 Depression Total Score: 4 11/07/19 25 1:47 PM EDT documented as of this encounter Care Teams Employee Service Officer Relationship Specialty Start Date End Date Leatha Yip ANP [address] [place] [address] PCP - General Family Medicine 07/27/19 Mariola Kamara Resin FiltererChief Meteorologist 02/09/23 documented as of this encounter
--- OUTSIDE RECORDS SUMMARY | 2025-01-25 17:26 | XMS_ITS | Encounter Summary ---
Author Organization [employer] Address [address] [facility] 7t [place] [address] Care Team Providers Care Race Steward Name Role Phone Leatha Yip Primary Care Provider [phone] Encounter Details Date Type Department Care Team (Latest Contact Info) Description 08/21/2018 Abstract [facility] CONVERSIONS Dental, Provider, DDS Social History [...] Description 03/01/2025 9:30 AM EST Office Visit [facility] [address] [place] [address] Marquis, Yocasta, OD [address] [place] [address] 04/25/2025 9:15 AM EDT Office Visit [facility] [address] [place] [address] Leatha Yip ANP [address] [place] [address] documented as of this encounter Visit Diagnoses Not on filedocumented in this encounter Care Teams Race Steward Relationship Specialty Start Date End Date Leatha Yip ANP [address] [place] [address] PCP - General Family Medicine 07/27/19 Mariola Kamara Plastic Surgery AssistantAids Social Worker 02/09/23 documented as of this encounter
--- OUTSIDE RECORDS SUMMARY | 2025-01-25 17:26 | XMS_ITS | Encounter Summary ---
Author Organization [employer] Address [address] [facility] 7t [place] [address] Care Team Providers Care Substitute Bus Driver Name Role Phone Leatha Yip Primary Care Provider [phone] Reason for Visit * Reason Onset Date Comments chart prep 01/24/2025 Encounter Details Date Type Department Care Team ([facility] st Contact Info) Description 01/24/2025 Telephone [facility] [address] [place] [address] Leatha Yip ANP [address] [place] [address] chart prep Social History Tobacco Use Types [...] encounter Miscellaneous Notes * Telephone Encounter - Lisbet Nieves [place] - 01/24/2025 1:34 PM EST ..Chart Prep Labs: not applicable Images: not applicable Vaccines due: Covid Due, PCV20 Due, and Flu Due Referrals: Not Applicable Screenings: PAP Overdue care gaps: LMP documented in this encounter Plan of Treatment Upcoming Encounters Date Type Department Care Team (Late st Contact Info) Description 03/01/2025 9:30 AM EST Office Visit [facility] [address] [place] [address] Marquis, Yocasta, OD [address] [place] [address] 04/25/2025 9:15 AM EDT Office Visit [facility] [address] [place] [address] Leatha Yip ANP [address] [place] [address] documented as of this encounter Visit Diagnoses Not on filedocumented in this encounter Additional Health Concerns Assessment Noted Time PHQ-9 Depression Total Score: 4 11/07/19 25 1:47 PM EDT documented as of this encounter Care Teams Substitute Bus Driver Relationship Specialty Start Date End Date Leatha Yip ANP [address] [place] [address] PCP - General Family Medicine 07/27/19 Mariola Kamara Knife SharpenerInsurance Job Titles 02/09/23 documented as of this encounter
[2025-01-25 18:01] LABS: Appearance Urine Clear; Glucose Urine UA Negative (Negative); PH 8.5 (5.0-9.0); Specific Gravity - Urine 1.015 (1.005-1.025); UMIC TRIGGER UACC YES
[2025-01-25 18:04] LABS: UACC Culture Trigger YES
[2025-01-25 18:39] LABS: Microalbum/Creatinine Ratio Ur 22.3 ug/mg cr (<30)
== END 2025-01-25 17:23 | disposition home or self-care (01) ==
LOC: HO.LNP 17:22
PROVIDERS: Visit Provider Nurse Practitioner Primary Care
DX: R80.9 Proteinuria, unspecified (principal)
CPT/HCPCS: 81001; 82043; 82570; 87086

== ENCOUNTER 2025-01-30 08:56 | Outpatient (AMB) | payer MEDICAID, SELFPAY ==
--- OUTSIDE RECORDS SUMMARY | 2025-01-25 09:15 | XMS_ITS | Encounter Summary ---
Author Organization [employer] Address [address] [facility] 7t [place] [address] Care Team Providers Care Frontend Engineer Name Role Phone Leatha Yip Primary Care Provider Reason for Visit * Reason Comments Follow-up weight Encounter Details Date Type Department Care Team ([facility] st Contact Info) Description 01/25/2025 9:15 AM EST Office Visit [facility] MEDICINE [address] [place] [address] Leatha Yip ANP [address] [place] [address] Albuminuria (Primary Dx); Microscopic hematuria; Class 1 obesity with body mass index (BMI) of 31.0 to 31.9 in adult, unspecified obesity type, unspecified whether serious comorbidity present; Constipation, unspecified constipation type Social History Tobacco Use Types Packs/Day Years [...] Q2 Not on file 11/06/2024 Comments Unknown Intention Date Recorded No desire to become (finding) 1 03/28/2024 Sex and Gender Information Value Date Recorded Sex Assigned at Female 12/07/2021 10:20 AM EDT Legal Sex Female 10:20 AM EDT Gender Identity Female 12/07/2021 10:20 AM EDT Sexual Orientation Straight 12/07/2021 10 :20 AM EDT documented as of this encounter Last Filed Vital Signs Vital Sign Reading Time Taken Comments Blood Pressure 100/60 01/25/2025 9:24 AM EST Pulse 77 01/25/2025 9:24 AM EST Temperature 36.5 C (97.7 F) 01/25/2025 9:24 AM EST Respiratory Rate 20 01/25/2025 9:24 AM EST Oxygen Saturation 95% 01/25/2025 9:24 AM EST Inhaled Oxygen Concentration - - Weight 103 kg (227 lb) 01/25/2025 9:24 AM EST Height 180.3 cm (5' 11 ) 01/25/2025 9:24 AM EST Body Mass Index 31.66 01/25/2025 9:24 AM EST documented in this encounter Progress Notes * IRENE Delacruz - 01/25/2025 9:15 AM EST Subjective Erelyd is a 40yo here today for wt follow-up. PMH HOUSER, obesity, chronic low back pain Pt reports she had protein in urine at [facility] for work at [employer]. We will repeat this. She has no h/o hypertension or DM. She does have MASH/HOUSER. LDL mildly elevated 126 11/2024. Here today for follow-up/weight check. Tolerating phentermine or phentermine/topiramate well, denies side effects. BMI Readings from Last 3 Encounters: 01/25/25 31.66 kg/m?? 11/06/24 33.47 kg/m?? 05/21/24 31.74 kg/m?? Wt Readings from Last 3 Encounters: 01/25/25 227 lb (103 kg) 11/06/24 240 lb (109 kg) 05/21/24 227 lb 9.6 oz (103 kg) Understands that weight loss medications must be used as part of a comprehensive lifestyle plan that incorporates daily exercise, adequate protein intake, decreased soda and sugary beverage consumption, decreased caloric intake. Sexually active w/ , [facility], follows w/ them for pap Weight Loss and Appetite Suppression - Taking phentermine since October 2024 for weight loss - Reports decreased appetite and reduced cravings for sweets and bread - Feels satisfied with smaller portions and able to stop eating when full - No side effects from phentermine reported Protein in Urine - Noted protein in urine during [facility] physical for [facility] - Expressed concern about possible kidney issues - Denies history of high blood pressure and diabetes - Reports increased meat intake and decreased consumption of vegetables and fruit prior to urine test - Drinking beet, celery, and lemon shake every morning for 6 days prior to urine test Constipation - Reports constipation - Avoiding potatoes, bread, pasta, and rice for past 3 weeks - Eating broccoli, cauliflower, cabbage, [place], and beans - Reports difficulty with green plantains due to constipation Misc - Drinks approximately 4 bottles of water daily - Uses salt in food Non-smoker Objective Blood pressure 100/60, pulse 77, temperature 97.7 ??F (36.5 ??C), temperature source Temporal, resp. rate 20, height 5' 11 (1.803 m), weight 227 lb (103 kg), SpO2 95%. - CARDIOVASCULAR: Hypotension noted. Assessment & Plan Albuminuria: - Albuminuria noted per pt at [employer] [facility]; etiology unclear as no hypertension or diabetes present. - Ordered urine albumin test and will repeat urinalysis. If albuminuria persists, will order kidneyultrasound. Microscopic hematuria: - did have Microscopic hematuria in past, could be a possible contributor to abnormal urine findings. - Ordered microscopic urinalysis to evaluate for hematuria. Class 1 obesity with body mass index (BMI) of 31.0 to 31.9 in adult, unspecified obesity type, unspecified whether serious comorbidity present: - Class 1 obesity managed with phentermine; patient tolerating medication without side effects. - Continue phentermine through April 2025, closely monitored. Recommended ongoing exercise and healthy diet. Will refill phentermine prescription in February 2025. - Risks and side effects: Discussed that phentermine is not typically used long- term; plan to limitduration. Constipation: - Constipation present, likely related to dietary changes. - Recommended increased vegetable intake and fiber supplementation with psyllium (Metamucil), prescribed sugar-free powder formulation. Advised to adjust dose if bloating occurs. Prescription - Phentermine: continue through end of February 2024/early March 2024; refill request week of February 17 2024; note limited-duration use - Psyllium (Metamucil) sugar-free powder: 1 tsp in 8 oz water daily; reduce dose if bloating occurs; prescription sent to [facility] This note was drafted using Ambient (AI) technology. The patient/patient's guardian has been informed and has consented to the use of this technology: Yes documented in this encounter Plan of Treatment Upcoming Encounters Date Type Department Care Team (Late st Contact Info) Description 03/01/2025 9:30 AM EST Office Visit [facility] OPTOMETRY [address] [place] [address] Marquis, Yocasta, OD [address] [place] [address] 04/25/2025 9:15 AM EDT Office Visit [facility] MEDICINE [address] [place] [address] Leatha Yip ANP [address] [place] [address] Scheduled Orders Name Type Priority Associated Diagnoses Orde r Schedule Albumin, Random Urine W/Creatinine Lab Routine Albuminuria Expected: 01/25/2025 (Approximate), Expires: 01/25/2026 Urinalysis with reflex microscopic Lab Routine Albuminuria Expected: 01/25/2025, Expires: 01/25/2026 documented as of this encounter Visit Diagnoses Diagnosis Albuminuria- Primary Proteinuria Microscopic hematuria Class 1 obesity with body mass index (BMI) of 31.0 to 31.9 in adult, unspecified obesity type, unspecified whether serious comorbidity present Constipation, unspecified constipation type documented in this encounter Additional Health Concerns Assessment Noted Time PHQ-9 Depression Total Score: 4 11/07/19 25 1:47 PM EDT documented as of this encounter Care Teams Frontend Engineer Relationship Specialty Start Date End Date Leatha Yip ANP [address] [place] [id number] PCP - General Family Medicine 07/27/19 Mariola Kamara Stereo Equipment SalespersonCeo And President 02/09/23 documented as of this encounter
--- OUTSIDE RECORDS SUMMARY | 2025-01-30 09:02 | XMS_ITS | Encounter Summary ---
Author Organization [employer] Address [address] [facility] 7t [place] [address] Care Team Providers Care Electrical Accessories I Assembler Name Role Phone Leatha Yip Primary Care Provider [phone] Encounter Details Date Type Department Care Team (Latest Contact Info) Description 12/05/2024 Results Follow-Up [facility] [address] [place] [address] Leatha Yip ANP [address] [place] [address] Comprehensive Metabolic Panel, Hemoglobin A1c, Lipid Panel, [...] Description 03/01/2025 9:30 AM EST Office Visit [facility] [address] [place] [address] MarquisYocasta gastelum, OD [address] [place] [address] 04/25/2025 9:15 AM EDT Office Visit [facility] [address] [place] [address] Leatha Yip ANP [address] [place] [address] documented as of this encounter Visit Diagnoses Not on filedocumented in this encounter Additional Health Concerns Assessment Noted Time PHQ-9 Depression Total Score: 4 11/07/19 25 1:47 PM EDT documented as of this encounter Care Teams Electrical Accessories I Assembler Relationship Specialty Start Date End Date Leatha Yip ANP [address] [place] [address] PCP - General Family Medicine 07/27/19 Mariola Kamara Server ProgrammerSpeech Therapist 02/09/23 documented as of this encounter
--- OUTSIDE RECORDS SUMMARY | 2025-01-30 09:02 | XMS_ITS | Encounter Summary ---
Author Organization [employer] Address [address] [facility] [address] [place] [address] Care Team Providers Care Appeals Representative Name Role Phone Leatha Yip Primary Care Provider [phone] Encounter Details Date Type Department Care Team (Latest Contact Info) Description 12/03/2024 Results Follow-Up [facility] [address] [place] [address] Leatha Yip ANP [address] [place] [address] CBC auto differential Social History Tobacco Use [...] 9:30 AM EST Office Visit [facility] [address] [place] [address] Marquis, Yocasta, OD [address] [place] [address] 04/25/2025 9:15 AM EDT Office Visit [facility] [address] [place] [address] Leatha Yip ANP [address] [place] [address] documented as of this encounter Visit Diagnoses Not on filedocumented in this encounter Additional Health Concerns Assessment Noted Time PHQ-9 Depression Total Score: 4 11/07/19 25 1:47 PM EDT documented as of this encounter Care Teams Appeals Representative Relationship Specialty Start Date End Date Leatha Yip ANP [address] [place] [address] PCP - General Family Medicine 07/27/19 Mariola Kamara Backend DeveloperHospitality Housekeeper 02/09/23 documented as of this encounter
--- OUTSIDE RECORDS SUMMARY | 2025-01-30 09:02 | XMS_ITS | Encounter Summary ---
Author Organization [employer] Address [address] [facility] 7t [place] [address] Care Team Providers Care Heat Welder Plastics Name Role Phone Leatha Yip Primary Care Provider [phone] Encounter Details Date Type Department Care Team (Latest Contact Info) Description 08/21/2018 Abstract [facility] CONVERSIONS Dental, Provider, DDS Social History Tobacco [...] Description 03/01/2025 9:30 AM EST Office Visit [facility] [address] [place] [address] Marquis, Yocasta, OD [address] [place] [address] 04/25/2025 9:15 AM EDT Office Visit [facility] [address] [place] [address] Leatha Yip ANP [address] [place] [address] documented as of this encounter Visit Diagnoses Not on filedocumented in this encounter Care Teams Heat Welder Plastics Relationship Specialty Start Date End Date Leatha Yip ANP [address] [place] [address] PCP - General Family Medicine 07/27/19 Mariola Kamara Billing Control ClerkGlobal Marketing Specialist 02/09/23 documented as of this encounter
--- OUTSIDE RECORDS SUMMARY | 2025-01-30 09:02 | XMS_ITS | Encounter Summary ---
Author Organization [employer] Address [address] [facility] 7t [place] [address] Care Team Providers Care Chute Greaser Name Role Phone Leatha Yip Primary Care Provider [phone] Reason for Visit * Reason Onset Date Comments Results 01/28/2025 Encounter Details Date Type Department Care Team ([facility] st Contact Info) Description 01/28/2025 Results Follow-Up [facility] [address] [place] [address] Leatha Yip ANP [address] [place] [address] Urinalysis, Complete, with Reflex to Culture, Albumin, Random Urine W/Creatinine, Culture, Urine, Routine Social History Tobacco Use Types Packs/Day Years [...] Telephone Encounter - Leanna Douglas RN - 01/28/2025 11:21 AM EST Telephone call placed to pt. Informed no protein in urine but high amounts of blood. Pt confirms she was menstruating during time of collection. Advised to repeat clean catch once off of period for at least a couple days. Pt agreeable. Reminded to use clean catch wipes to wipe front to back thoroughly. Can go to the lab for collection. Pt states will come next week. Repeat urinalysis w/reflex to Cx ordered as cosign. * Telephone Encounter - Leanna Douglas RN - 01/28/2025 10:12 AM EST ----- Message from Leatha Yip sent at 01/28/2025 9:41 AM EST ----- No protein in urine but +blood - was she menstruating at time of collection? If she was, recommend repeat w/ strict clean catch protocol when not menstruating. If she was not, I will order renal US. ----- Message ----- From: Interface, Lab Results In Sent: 01/25/2025 6:02 PM EST To: IRENE Delacruz * Result Encounter Note - IRENE Delacruz - 01/28/2025 9:41 AM EST No protein in urine but +blood - was she menstruating at time of collection? If she was, recommend repeat w/ strict clean catch protocol when not menstruating. If she was not, I will order renal US. documented in this encounter Plan of Treatment Upcoming Encounters Date Type Department Care Team (Late st Contact Info) Description 03/01/2025 9:30 AM EST Office Visit [facility] [address] [place] [address] MarquisYocasta gastelum, OD [address] [place] [address] 04/25/2025 9:15 AM EDT Office Visit [facility] [address] [place] [address] Leatha Yip ANP [address] [place] [address] Scheduled Orders Name Type Priority Associated Diagnoses Orde r Schedule Urinalysis, Complete, with Reflex to Culture Lab Routine Microscopic hematuria Expected: 01/28/2025 (Approximate), Expires: 01/28/2026 documented as of this encounter Visit Diagnoses Diagnosis Microscopic hematuria documented in this encounter Additional Health Concerns Assessment Noted Time PHQ-9 Depression Total Score: 4 11/07/19 25 1:47 PM EDT documented as of this encounter Care Teams Chute Greaser Relationship Specialty Start Date End Date Leatha Yip ANP [address] [place] [address] PCP - General Family Medicine 07/27/19 Mariola Kamara Pottery Decoration DesignerVocational Counselor 02/09/23 documented as of this encounter
--- OUTSIDE RECORDS SUMMARY | 2025-01-30 09:02 | XMS_ITS | Encounter Summary ---
Author Organization [employer] Address [address] [place] [address] Care Team Providers Care Pleasure Craft Sailor Name Role Phone Leatha Yip Primary Care Provider Encounter Details Date Type Department Care Team (Late st Contact Info) Description 01/25/2025 Orders Only [facility] [address] [place] [address] Leatha Yip ANP [address] [place] [address] Social History Tobacco Use Types Packs/Day Years [...] Description 03/01/2025 9:30 AM EST Office Visit [facility] [address] [place] [address] Marquis, Yocasta, OD [address] [place] [address] 04/25/2025 9:15 AM EDT Office Visit [facility] [address] [place] [address] Leatha Yip, ANP [address] [place] [address] documented as of this encounter Procedures Procedure Name Priority Date/Time Associated Diagnosis Comments CULTURE, URINE, ROUTINE Routine 01/25/2025 6:05 PM EST URINALYSIS, COMPLETE, WITH REFLEX TO CULTURE Routine 01/25/2025 12:00 AM EST ALBUMIN, RANDOM URINE W/CREATININE Routine 01/25/2025 12:00 AM EST documented in this encounter Results * Culture, Urine, Routine (01/25/2025 6:05 PM EST) Urine Urine specimen obtained by clean catch procedure / Unknown 01/25/2025 6:05 PM EST 01/25/2025 6:05 PM EST Comment:[facility] - 01/27/2025 11:38 AM EST Urine Culture Report Result Urine Culture 10,000 to 50,000 cfu/ml Urine Culture Mixed bacterial mary ann characteristic of Urine Culture urogenital contamination. Specimen Source: Urine clean catch Leatha BONILLA LAB MICROBIOLOGY - GENERAL ORDER JOVANI Final Result Performing Organization Address [facility] Co de Phone Number [facility] [address] [place] [phone] * Albumin, Random Urine W/Creatinine (01/25/2025 12:00 AM EST) Creatinine, Urine 75.93 mg/dL [facility] Microalbumin Urine 17.0 mg/L [facility] Microalbum Creatinine Ratio Ur 22.3 <30 ug/mg cr [facility] Comment:Albumin/Creatinine R atio Reference Ranges: Normal: < 30 ug/mg creatinine Microalbuminuria: 30 - 300 ug/mg creatinineClinical Albuminuria: > 300 ug/mg creatinine 01/25/2025 01/25/2025 Leatha Yip ANP LAB URINE ORDERABLES Final Resul t Performing Organization Address [facility] Co de Phone Number [facility] [address] [place] [phone] * (ABNORMAL) Urinalysis, Complete, with Reflex to Culture (01/25/2025 12:00 AM EST) Color Urine [place](A) [facility] Appearance Urine Clear [facility] PH 8.5 5.0 - 9.0 [facility] Glucose Urine UA Negative Negative mg/dL [facility] Urine Blood Large (3+)(A) Negative [facility] Specific [place] - Urine 1.015 1.005 - 1.025 [facility] Urine Protein Negative Neg-Trace mg/dL [facility] Urine Ketones Negative Negative mg/dL [facility] Nitrite Urine Negative Negative [facility] Leukocyte Esterase Urine Trace(A) Negative [facility] RBC Urine >20(A) 0 - 2 /HPF [facility] Urine WBC 6-10(A) 0 - 5 /HPF [facility] Urine Squamous Epithelial Cell 0-2 0 - 2 /HPF [facility] Urine Bacteria None Seen None Seen [facility] Hyaline Casts, Urine 0-2 0 - 2 /LPF [facility] 01/25/2025 01/25/2025 Narrative [facility] - 01/25/2025 6:05 PM EST Urine, Clean Catch us Leatha BONILLA LAB URINE ORDERABLES Final Resul t [facility] [address] [place] [address] [phone] documented in this encounter Visit Diagnoses Not on filedocumented in this encounter Additional Health Concerns Assessment Noted Time PHQ-9 Depression Total Score: 4 11/07/19 25 1:47 PM EDT documented as of this encounter Care Teams Pleasure Craft Sailor Relationship Specialty Start Date End Date Leatha Yip ANP [address] [place] [address] PCP - General Family Medicine 07/27/19 Mariola Kamara Weather AnalystSock And Stocking Ironer 02/09/23 documented as of this encounter
--- OUTSIDE RECORDS SUMMARY | 2025-01-30 09:02 | XMS_ITS | Clinical Summary ---
Author Organization [employer] Address [address] [facility] 7t [place] [address] Care Team Providers Care Wrapper Cashier Name Role Phone Leatha Yip IRENE Primary Care Provider [phone] Allergies No known active allergies Medications * [...] organization. Date Type Department Care Team Description 01/28/2025 Results Follow-Up [address] [address] Leatha Yip ANP Urinalysis, Complete, with Reflex to Culture, Albumin, Random Urine W/Creatinine, Culture, Urine, Routine 01/25/2025 9:15 AM EST Office Visit [address] [address] Leatha Yip ANP Albuminuria (Primary Dx); Microscopic hematuria; Class 1 obesity with body mass index (BMI) of 31.0 to 31.9 in adult, unspecified obesity type, unspecified whether serious comorbidity present; Constipation, unspecified constipation type 01/25/2025 Orders Only [facility] [place] [address] Leatha Yip ANP 01/25/2025 Travel 01/24/2025 [address]phone [address] [place] [address] Leatha Yip ANP chart prep 01/18/2025 Travel 01/17/2025 Refill [facility] [place] [address] Leatha Yip ANP Class 1 obesity with serious comorbidity and body mass index (BMI) of 33.0 to 33.9 in adult, unspecified obesity type 01/02/2025 Orders Only [place] [address] Leatha Yip ANP 12/12/2024 Refill [facility] [place] [address] Leatha Yip ANP Class 1 obesity with serious comorbidity and body mass index (BMI) of 33.0 to 33.9 in adult, unspecified obesity type; Vaginal discharge 12/07/2024 Telephone [facility] [place] [address] Leatha Yip ANP Medication Question 12/05/2024 Results Follow-Up [address] [address] Leatha Yip ANP Comprehensive Metabolic Panel, Hemoglobin A1c, Lipid Panel, Standard 12/03/2024 Results Follow-Up [address] [place] [address] Leatha Yip ANP CBC auto differential 11/29/2024 9:45 AM EDT Office Visit [address] [place] [address] Letty Mike MD Anxiety (Primary Dx); Chronic bilateral low back pain without sciatica 11/29/2024 Travel 11/27/2024 9:15 AM EDT Office Visit [facility] [address] [place] [address] Letty Mike MD Anxiety (Primary Dx); Chronic bilateral low back pain without sciatica 11/27/2024 Travel 11/08/2024 Telephone [facility] [address] [place] [address] Leatha Yip ANP january11/06/2024 9:30 AM EDT Office Visit [address] [address] Leatha Yip ANP Class 1 obesity with serious comorbidity and body mass index (BMI) of 33.0 to 33.9 in adult, unspecified obesity type (Primary Dx); Shortness of breath; Anxiety; Stress; HOUSER (nonalcoholic steatohepatitis); Mild intermittent asthma without complication 11/06/2024 Travel 11/05/2024 Telephone [facility] [address] [place] [address] Leatha Yip ANP chart prep from Last [...] Description 03/01/2025 9:30 AM EST Office Visit [facility] [address] [place] [address] Marquis, Yocasta, OD [address] [place] [address] 04/25/2025 9:15 AM EDT Office Visit [facility] [address] [place] [address] Leatha Yip, ANP [address] [place] [address] Health Maintenance Due Date Last Done Comments [...] URINE, ROUTINE Routine 01/25/2025 6:05 PM EST ALBUMIN, RANDOM URINE W/CREATININE Routine 01/25/2025 12:00 AM EST URINALYSIS, COMPLETE, WITH REFLEX TO CULTURE Routine 01/25/2025 12:00 AM EST CBC WITH AUTO DIFFERENTIAL Routine 11/07/2024 9:20 [...] Recently Relevant to Health Maintenance Results * Culture, Urine, Routine (01/25/2025 6:05 PM EST) Urine Urine specimen obtained by clean catch procedure / Unknown 01/25/2025 6:05 PM EST 01/25/2025 6:05 PM EST Comment:[facility] - 01/27/2025 11:38 AM EST Urine Culture Report Result Urine Culture 10,000 to 50,000 cfu/ml Urine Culture Mixed bacterial mary ann characteristic of Urine Culture urogenital contamination. Specimen Source: Urine clean catch Leatha Yip ANP LAB MICROBIOLOGY - GENERAL ORDER JOVANI Final Result Performing Organization Address [facility] Co de Phone Number [facility] [address] [place] [address] [phone] * (ABNORMAL) Urinalysis, Complete, with Reflex to Culture (01/25/2025 12:00 AM EST) Color Urine [place](A) [facility] Appearance Urine Clear [facility] PH 8.5 5.0 - 9.0 [facility] Glucose Urine UA Negative Negative mg/dL [facility] Urine Blood Large (3+)(A) Negative [facility] Specific [place] - Urine 1.015 1.005 - 1.025 [facility] Urine Protein Negative Neg-Trace mg/dL [facility] Urine Ketones Negative Negative mg/dL [facility] Nitrite Urine Negative Negative [facility] Leukocyte Esterase Urine Trace(A) Negative [facility] RBC Urine >20(A) 0 - 2 /HPF [facility] Urine WBC 6-10(A) 0 - 5 /HPF [facility] Urine Squamous Epithelial Cell 0-2 0 - 2 /HPF [facility] Urine Bacteria None Seen None Seen [facility] Hyaline Casts, Urine 0-2 0 - 2 /LPF [facility] 01/25/2025 01/25/2025 Narrative [facility] - 01/25/2025 6:05 PM EST Urine, Clean Catch Leatha Yip ANP LAB URINE ORDERABLES Final Resul t Performing Organization Address [facility] Co de Phone Number [facility] [address] [place] [phone] * Albumin, Random Urine W/Creatinine (01/25/2025 12:00 AM EST) Creatinine, Urine 75.93 mg/dL [facility] Microalbumin Urine 17.0 mg/L [facility] Microalbum Creatinine Ratio Ur 22.3 <30 ug/mg cr [facility] Comment:Albumin/Creatinine R atio Reference Ranges: Normal: < 30 ug/mg creatinine Microalbuminuria: 30 - 300 ug/mg creatinineClinical Albuminuria: > 300 ug/mg creatinine 01/25/2025 01/25/2025 Leatha BONILLA LAB URINE ORDERABLES Final Resul t [facility] [address] [place], [place] [phone] * CBC auto differential (11/07/2024 9:20 AM EDT) Pathologist [facility] White Blood Count 7.6 4.8 - 10.8 X10*3/uL [facility] Red Blood Count 4.47 4.20 - 5.50 X10*6/uL [facility] Hemoglobin 12.5 12.0 - 16.0 g/dl [facility] Hematocrit 39.4 37.0 - 47.0 % [facility] Mean Corpuscular Volume 88.1 80.0 - 98.0 fL [facility] Mean Corpuscular Hemoglobin 28.0 27.0 - 33.0 pg [facility] Mean Corpuscular HGB Conc 31.7 31.0 - 35.0 g/dl [facility] Red Cell Distribution Width 13.3 11.0 - 16.0 % [facility] Platelet Count 311 160 - 400 X10*3/uL [facility] Mean Platelet Volume 10.4 9.4 - 12.3 fL [facility] Neutrophils Percent Auto 61.7 45 - 73 % [facility] Imm Gran Pct Auto 0.3 0.0 - 0.4 % [facility] Lymphocytes Percent Auto 30.1 20 - 40 % [facility] Monocytes Percent Auto 5.4 2 - 11 % [facility] Eosinophils Percent Auto 2.0 0 - 4 % [facility] Basophils Percent Auto 0.5 0 - 2 % [facility] NRBC Pct Auto 0.0 0.0 - 0.2 /100WBC [facility] Neutrophils Absolute Auto 4.7 2.0 - 8.3 x10*3/uL [facility] Imm Gran Abs Auto 0.02 0.00 - 0.03 X10*3/uL [facility] Lymphocytes Absolute Auto 2.3 1.2 - 4.9 X10*3/uL [facility] Monocytes Absolute Auto 0.4 0.1 - 1.2 X10*3/uL [facility] Eosinophils Absolute Auto 0.2 0.0 - 0.4 X10*3/uL [facility] Basophils Absolute Auto 0.0 0.0 - 0.2 X10*3/uL [facility] NRBC Abs Auto 0.000 0.0 - 0.012 X10*3/uL [facility] Blood Venous blood specimen / Unknown 11/07/2024 9:20 AM EDT 11/07/2024 11:04 AM EDT [facility] LAB BLOOD ORDERABLES Final Resul t [facility] [address] [place] [phone] [phone] * Hemoglobin A1c (11/07/2024 9:20 AM EDT) Hemoglobin A1c 5.2 <6.0 % [facility] Comment:Hemoglobin A1C Refer ence Range Adults: 4.8 - 6.0 % Non diabetic: < 6.0 % Goal: < 7.0 %Additional Action Suggested: > 8.0 %Note: Hemoglobin A1c results are invalid for patients with abnormal amounts of HbF. Blood transfusions may impact the HbA1c concentration in the patient sample. Estimated Average Glucose 103 mg/dL [facility] Comment:eAG = Estimated ave rage glucose which is %A1C expressed asaverage glucose, using the formula of the O9D-IltrqauXjvomuf Glucose study (ADAG), Diabetes Care, Vol.31,#8,Sep. 2007 Blood Venous blood specimen / Unknown 11/07/2024 9:20 AM EDT 11/07/2024 11:04 AM EDT Leatha Yip ANP LAB BLOOD ORDERABLES Final Resul t Performing Organization Address [facility] de Phone Number [facility] [address] [place] [phone] * (ABNORMAL) Lipid Panel, Standard (11/07/2024 9:20 AM EDT) Triglycerides 77 <150 mg/dL [facility] Comment:Desirable Triglyceri de: less than 150 mg/dLBorderline High Triglyceride 150-199 mg/dLHigh Triglyceride: 200-499 mg/dLVery High Triglyceride: greater than or equal to 5OO mg/dL Cholesterol 199 <200 mg/dL [facility] Comment:Desirable Cholestero l: less than 200 mg/dLBorderline High Cholesterol: 200-239 mg/dLHigh Cholesterol: greater than 239 mg/dL LDL Cholesterol Calculated 126(H) <100 mg/dL [facility] Comment:Desirable LDL: less than 100 mg/dLNear Optimal/Above Optimal LDL: 110- 129 mg/dLBorderline High LDL: 130-159 mg/dLHigh LDL: 160-189 mg/dLVery High LDL: greater than or equal to 190 mg/dL HDL Cholesterol 58 >40 mg/dL [facility] Comment:Desirable HDL: great er than 40 mg/dL Note: This HDL assay may give artificially low results in patients with liver disease. Blood Venous blood specimen / Unknown 11/07/2024 9:20 AM EDT 11/07/2024 10:55 AM EDT us Leatha Yip ANP LAB BLOOD ORDERABLES Final Resul t Performing Organization Address [facility] Co de Phone Number [facility] [address] [place] [address] [phone] * Comprehensive Metabolic Panel (11/07/2024 9:20 AM EDT) Sodium 141 135 - 145 mmol/L [facility] Potassium 3.9 3.3 - 5.1 mmol/L [facility] Chloride 106 96 - 108 mmol/L [facility] Carbon Dioxide 25 22 - 29 mmol/L [facility] Anion Gap 14 12 - 20 [facility] Urea Nitrogen (BUN) 9 9 - 16 mg/dL [facility] Creatinine, Serum 0.65 0.5 - 1.4 mg/dL [facility] Estimated Glomerular Filt Rate >60 [facility] Comment:Chronic Kidney Disea se: Estimated GFR < 60 mL/min/1.44q8Vlvxpc Kidney Disease: Estimated GFR < 15 mL/min/1.73m2 Glucose 85 60 - 115 mg/dL [facility] Calcium 9.4 8.4 - 10.2 mg/dL [facility] Bilirubin, Total 0.6 0.0 - 1.0 mg/dL [facility] Aspartate Amino Transferase 22 5 - 31 U/L [facility] Alanine Aminotransferase 17 0 - 31 U/L [facility] Total Protein 8.0 6.5 - 8.0 g/dL [facility] Albumin Level 4.4 3.5 - 5.0 g/dL [facility] Alkaline Phosphatase 58 39 - 117 U/L [facility] Blood Venous blood specimen / Unknown 11/07/2024 9:20 AM EDT 11/07/2024 10:55 AM EDT [facility] LAB BLOOD ORDERABLES Final Resul t [facility] [address] [place] [address] [phone] * HIV-1/2 Antigen and Antibodies, Fourth Generation, with Reflexes (08/30/2023 10:23 AM EDT) HIV AB/AG Nonreactive Nonreactive [facility] Comment:HIV-1 p24 Ag and/or HIV-1/HIV-2 Ab not detected.A test result that is nonreactive does not exclude thepossibility of exposure to or infection with HIV-1 and/orHIV-2. Nonreactive results in this assay for individualswith prior exposure to HIV-1 and/or HIV-2 may be due toantigen and antibody levels that are below the limit ofdetection of this assay.The [employer] HIV Ag/Ab Combo assay result andsupplemental assay results should be interpreted inconjunction with the patient's clinical presentation,history and other laboratory results. If the results areinconsistent with clinical evidence, additional testing issuggested to confirm the result. Blood Venous blood specimen / Unknown 08/30/2023 10:23 AM EDT 08/30/2023 11:14 AM EDT [facility] LAB BLOOD ORDERABLES Final Resul t Performing Organization Address [facility]/ZIP Co de Phone Number [facility] [address] [place] [address] [phone] * HEPATITIS A,B,C PROFILE (06/20/2019 9:05 [...] Provider MD HISTORICAL/NON ORDERABLE LABS Final Result [facility] [address] from Last 3 Months or Most Recently Relevant to Health Maintenance Insurance [facility] [address] [place] Care Teams Wrapper Cashier Relationship Specialty Start Date End Date Leatha Yip ANP [address] [place] [address] PCP - General Family Medicine 07/27/[address] ContractorHot Molder 02/09/23
--- OUTSIDE RECORDS SUMMARY | 2025-01-30 09:02 | XMS_ITS | Encounter Summary ---
Author Organization [employer] Address [address] [place] [address] Care Team Providers Care Pocket Setter Name Role Phone Leatha Yip IRENE Primary Care Provider [phone] Encounter Details Date Type Department Care Team [...] is your housing situation today? I have eufeima loe 11/06/[address] you li [...] Description 03/01/2025 9:30 AM EST Office Visit [facility] [address] [place] [address] Marquis, Yocasta, OD [address] [place] [address] 04/25/2025 9:15 AM EDT Office Visit [facility] [address] [place] [address] Leatha Yip ANP [address] [place] [address] documented as of this encounter Visit Diagnoses Not on filedocumented in this encounter Additional Health Concerns Assessment Noted Time PHQ-9 Depression Total Score: 4 11/07/19 25 1:47 PM EDT documented as of this encounter Care Teams Pocket Setter Relationship Specialty Start Date End Date Leatha Yip ANP [address] [place] [address] PCP - General Family Medicine 07/27/19 Mariola Kamara Labor Gang SupervisorTennis Ball Coverer Hand 02/09/23 documented as of this encounter
--- OUTSIDE RECORDS SUMMARY | 2025-01-30 09:02 | XMS_ITS | Clinical Summary ---
Author Organization [facility] Address [address] [place] [phone] Phone Care Team Providers Care Supervisor [employer] Name Role Phone Pcp, Unknown Primary Care [...] C3 ACO C3 [facility]CO [facility]3 [facility]CO [address] C3 [facility]CO [address] C3 [facility]CO [address] C3 ACO Care Teams Supervisor [employer] Relationship Specialty Start Date End Date Pcp, Unknown PCP - General 10/10/23 Additional Source Comments The information contained in this document represents components of the legal health record. It is not the complete legal health record.[facility]
--- NOTE | 2025-01-30 12:09 | MHC.OFFVISWM ---
VS Expanded 01/30/25 12:23 Height 5 ft 11 in Weight 237 lb 4 oz BMI 33.1 Body Fat % 40.8 Body Fat Mass 96.8 Fat Free Mass 140.4 Visceral Fat Rating 8 Body Water % 42.4 Body Water Mass 100.6 Basal Metabolic Rate/Score 1,959 Intake Visit Reasons: [employer] [facility] BMI 33.1 Allergies No Known Allergies Allergy (Verified 01/30/25 12:09) Medication List - Last Reconciled 01/30/25 by Thomas White MD phentermine 15 mg PO DAILY HPI HPI [employer] [facility] BMI 33.1: Details: Start time: 11.55am, End time: 12.40pm ?I spent 40 minutes speaking with the patient on the phone plus an additional 5 minutes reviewing and updating records for a total of 45 minutes HPI Comments Details: Previous weight loss efforts: Phentermine for 3mths: lost 10lbs Wakes up: 5.30am, sleeps: 10pm Breakfast: 9-10am (3 eggs with avocado) Lunch: 1pm (fish, pork, chicken with plantains, potatoes) Dinner: 6pm (same) Snacks: 10am and 4pm (nuts and fruits) Exercise: none Beverages: Coffee: (a few times), Tea (occ), Soda: none, Juice: none, ETOH: none PFSH Medical History (Updated 01/30/25 @ 12:32 by Thomas White MD) BMI 33.0-33.9,adult Hepatic steatosis IBS (irritable colon syndrome) Gallstones Surgical History History of laparoscopic cholecystectomy Family History (Updated 11/27/24 @ 13:57 by Mariann Mckee CMA) Paternal Grandfather Diabetes Paternal Grandmother Diabetes Mother Diabetes Hypertension Father Diabetes Breast cancer Heart problem Social History Household Members: Spouse and Children Household Members Other:: ages of kids 3 from husbands prev. m.--17,16,12; 2 smaller: 3 and 4 yr old Alcohol intake: current Alcohol intake frequency: does not drink Alcohol type: beer, wine and hard liquor Patient Tobacco Use Status: Never used Tobacco Current occupational status: employed Current occupation: Office Work Telehealth Telehealth Telehealth Platform: Telephone Location of provider rendering services: practice address Location of patient: address on file Patient Identification confirmed using: Name, : Yes Telehealth method: voice only Patient verbally consented to treatment: Yes Patient verbally consented to billing insurance company: Yes Patient informed of any privacy concerns related to visit: Yes Minutes spent on Phone/Video with Pt.: 47 Assessment & Plan Assessment & Plan (1) Obesity: Code(s): E66.9 - Obesity, unspecified Category: Medical Qualifiers: Obesity type: due to excess calories Obesity classification: adult class 1 (BMI 30 - 34.9) Serious obesity comorbidity presence: without serious comorbidity Body mass index: BMI 33.0-33.9 Qualified Code(s): E66.811 - Obesity, class 1; E66.09 - Other obesity due to excess calories; Z68.33 - Body mass index [BMI] 33.0-33.9, adult Plan: 1.?Nutritional counseling. Start with one premade PREMIER protein (buy at [employer] or [employer]) shake (mix 4oz of Premier mixed with 4oz low fat unsweetened almond milk) at 6am-8am, one protein bar (Fit Crunch protein bar, buy at [employer], or [employer]) at 9am-11am, another premade PREMIER protein shake (mix 4oz of Premier mixed with 4oz low fat unsweetened almond milk) at 12pm-2pm, another [employer] protein bar at 3pm-5pm,?dinner at 6pm (8 forks of protein and 8 forks of salad/vegetables) and one more PREMIER protein shake (mix 4oz of Premier mixed with 4oz low fat unsweetened almond milk) at 8pm-10pm So you do 3 protein shakes, 2 protein bars and one meal per day. Meal to include lean meat (beef, fish, pork, turkey, chicken), or emirati yogurt, or egg whites, or beans with a salad with olive oil and fruits (berries, pears, apples, kiwi). Avoid salt, breads, potatoes, rice, pasta, desserts. 2. Continue the Phentermine daily. We discussed the potential side-effects of the Phentermine such as irritability, dry mouth, difficulty sleeping, dizziness, numbness in feet and high blood pressure. I asked her to get a blood pressure monitor and measure the blood pressure daily in the morning and evening. She needs to send the blood pressure readings daily and to call the office for blood pressure over 140/80 and she understands that. 3. Each shake would be drunk slowly, like coffee in a period of 2 hours. 4. Cut each bar in 4 pieces and eat each piece in 30min ?to make each bar last 2 hours. 5. I emphasized the importance of measuring accurately the food portion and measure it when serving the food in plate 6. The meal portions include 8 full-size forks of meat and 8 full-size forks of salad. You always eat the meat portion but you can replace up to 4 forks for salad/vegetables with rice, potatoes or pasta, or a fruit ?if you like. The less you do it the better weight loss will be. 7. One full-size fork is what it can be scooped on the fork without falling aside and not what can be bit with the fork. Use regular forks like those you find in a typical restaurant. 8.? Please buy the body composition scale we discussed and send me weight measurements as soon as possible and then once a week. Always include your diet and exercise plan. 9. The best choice would be to purchase a stationary bike at home that can track calories. If you get one, please start stationary bike at a resistance level of 4.0 Increase level by 1.0 every 3 min to a max level of 10.0. Stay at this level for 3 min and then return to level 4.0 and repeat same steps until 300 calories are burned. Goal is to burn 2000 calories per week on exercise 10.?It is important of avoiding and for as long as you are on Phentermine 11. Goal is to lose at least 1.5-2lbs per week 12. Goal to lose at least 10% of your weight, which is about 24lbs. Minimum weight goal: 213lbs 13. Please follow the diet plan exactly without any change. If you don't like something about the plan or you feel hungry you need to communicate with me so I can help you revise the plan. You should not change the plan yourself
[2025-01-30 12:23] VITALS: BMI 33.1
== END 2025-01-30 12:41 | disposition home or self-care (01) ==
LOC: HO.HBS 08:56
PROVIDERS: Visit Provider Surgery
DX: E66.811 Obesity, class 1 (principal); Z68.33 Body mass index [BMI] 33.0-33.9, adult
CPT/HCPCS: 99204